=== PATIENT | female | born 1955 | race Caucasian/White ===

== ENCOUNTER 2016-09-23 08:22 | Emergency (ER) | payer OTHER ==
[2016-09-23] MEDS ORDERED: IPRATROPIUM/ALBUTEROL 0.5-2.5 MG/3 ML AMPUL NEB ONE (08:46)
[2016-09-23 09:42] LABS: ABSOLUTE BASOPHILS # (AUTO) 0.1 10^3/uL (0.0-0.2); ABSOLUTE EOSINOPHILS # (AUTO) 0.1 10^3/uL (0.0-0.6); ABSOLUTE LYMPHOCYTES (AUTO) 1.7 10^3/uL (0.5-4.7); ABSOLUTE MONOCYTES (AUTO) 0.8 10^3/uL (0.1-1.4); ABSOLUTE NEUT (AUTO) 6.9 10^3/uL (1.7-8.2); BASOPHILS % (AUTO) 0.8 % (0-2); EOSINOPHILS % (AUTO) 0.9 % (0-6); HEMATOCRIT 37.9 % (36.0-47.0); HEMOGLOBIN 12.8 g/dL (12.0-15.5); HGB HCT DIFFERENCE 0.5; LYMPHOCYTES % (AUTO) 17.7 % (13-45); MEAN CORPUSCULAR HEMOGLOBIN 29.5 pg (27.0-33.4); MEAN CORPUSCULAR HGB CONC 33.8 g/dL (32.0-36.0); MEAN CORPUSCULAR VOLUME 87 fl (80-97); MONOCYTES % (AUTO) 8.2 % (3-13); RED BLOOD COUNT 4.34 10^6/uL (3.72-5.28); RED CELL DISTRIBUTION WIDTH 13.8 % (11.5-14.0); SEGMENTED NEUTROPHILS % (AUTO) 72.4 % (42-78); WHITE BLOOD COUNT 9.5 10^3/uL (4.0-10.5)
[2016-09-23 09:54] LABS: APPEARANCE,URINE CLOUDY; BILIRUBIN,URINE NEGATIVE (NEGATIVE); GLUCOSE, URINE NEGATIVE (NEGATIVE); KETONES,URINE NEGATIVE (NEGATIVE); LEUKOCYTE ESTERASE,URINE LARGE (NEGATIVE); NITRITE,URINE NEGATIVE (NEGATIVE); PROTEIN,URINE NEGATIVE (NEGATIVE); URINE SPECIFIC GRAVITY 1.019; UROBILINOGEN,URINE NEGATIVE mg/dL (<2.0)
[2016-09-23 10:02] LABS: ALANINE AMINOTRANSFERASE 71 U/L (9-52); ALBUMIN 3.9 g/dL (3.5-5.0); ALKALINE PHOSPHATASE 146 U/L (38-126); ANION GAP 15 (5-19); ASPARTATE AMINO TRANSFERASE 57 U/L (14-36); BILIRUBIN,TOTAL 0.5 mg/dL (0.2-1.3); BLOOD UREA NITROGEN 18 mg/dL (7-20); CALCIUM 9.5 mg/dL (8.4-10.2); CARBON DIOXIDE 25 mmol/L (22-30); CHLORIDE 103 mmol/L (98-107); CREATININE RESULT 0.96 mg/dL (0.52-1.25); GLUCOSE 106 mg/dL (75-110); SODIUM 142.6 mmol/L (137-145); TOTAL PROTEIN 8.2 g/dL (6.3-8.2)
--- NOTE | 2016-09-23 10:09 | ER Document Report ---
[id number] SHORTNESS OF BREATH,FEVER Mode of Arrival: Ambulatory Information source: Patient Notes: 61-year-old female presents with complaints of sore throat nasal discharge and a nonproductive cough of one-week duration. Patient admits to fevers denies any chest pain shortness breath difficult to breathing TRAVEL OUTSIDE OF THE [place] IN LAST 30 DAYS: No - HPI Onset: Last week Onset/Duration: Persistent Quality of pain: Achy Severity: Mild Pain Level: 1 Associated symptoms: Nonproductive cough, Sore throat Exacerbated by: Denies Relieved by: Denies Similar symptoms previously: No Recently seen / treated by doctor: No - Related Data Allergies/Adverse Reactions: hydromorphone HCl [From Dilaudid] Adverse Reaction (Verified 09/23/16 08:26) vomitting Past Medical History - Social History Smoking Status: Never Smoker Cigarette use (# per day): No Chew tobacco use (# tins/day): No Smoking Education Provided: No Frequency of alcohol use: None Drug Abuse: None Family History: Reviewed & Not Pertinent Patient has suicidal ideation: No Patient has homicidal ideation: No - Past Medical History Cardiac Medical History: Reports: Hx Hypertension Pulmonary Medical History: Reports: Hx Bronchitis Denies: Hx Tuberculosis Neurological Medical History: Reports: Hx Seizures Renal/ Medical History: Reports: Hx Ovarian Cysts GI Medical History: Reports: Hx Gastroesophageal Reflux Disease, Hx Hiatal Hernia Musculoskeltal Medical History: Reports Hx Arthritis Traumatic Medical History: Reports: Hx Fractures - Collar bone as child Past Surgical History: Reports: Hx Cholecystectomy, Hx Hysterectomy. Denies: Hx Pacemaker - Immunizations Immunizations up to date: No Hx Diphtheria, Pertussis, Tetanus Vaccination: No Review of Systems - Review of Systems Notes: REVIEW OF SYSTEMS: CONSTITUTIONAL : Denies fever, chills, or sweats. Denies recent illness. EENT: Admits to sore throat CARDIOVASCULAR: Denies chest pain. Denies palpitations or racing or irregular heart beat. Denies ankle edema. RESPIRATORY: Denies cough, cold, or chest congestion. Denies shortness of breath, difficulty breathing, or wheezing. GASTROINTESTINAL: Denies abdominal pain or distention. Denies nausea, vomiting , or diarrhea. Denies blood in vomitus, stools, or per rectum. Denies black, tarry stools. Denies constipation. GENITOURINARY: Denies difficulty urinating, painful urination, burning, frequency, blood in urine, or discharge. FEMALE GENITOURINARY: Denies vaginal bleeding, heavy or abnormal periods, irregular periods. Denies vaginal discharge or odor. MUSCULOSKELETAL: Denies back or neck pain or stiffness. Denies joint pain or swelling. SKIN: Denies rash, lesions or sores. HEMATOLOGIC : Denies easy bruising or bleeding. LYMPHATIC: Denies swollen, enlarged glands. NEUROLOGICAL: Denies confusion or altered mental status. Denies passing out or loss of consciousness. Denies dizziness or lightheadedness. Denies headache. Denies weakness or paralysis or loss of use of either side. Denies problems with gait or speech. Denies sensory loss, numbness, or tingling. Denies seizures. PSYCHIATRIC: Denies anxiety or stress. Denies depression, suicidal ideation, or homicidal ideation. ALL OTHER SYSTEMS REVIEWED AND NEGATIVE. Dictation was performed using [employer] voice recognition software PHYSICAL EXAMINATION: GENERAL: Well-appearing, well-nourished and in no acute distress. HEAD: Atraumatic, normocephalic. EYES: Pupils equal round and reactive to light, extraocular movements intact, conjunctiva are normal. ENT: Congestion noted NECK: Normal range of motion, supple without lymphadenopathy LUNGS: Breath sounds clear to auscultation bilaterally and equal. No wheezes rales or rhonchi. HEART: Regular rate and rhythm without murmurs ABDOMEN: Soft, nontender, nondistended abdomen. No guarding, no rebound. No masses appreciated. Female : deferred Musculoskeletal: Normal range of motion, no pitting or edema. No cyanosis. NEUROLOGICAL: Cranial nerves grossly intact. Normal speech, normal gait. Normal sensory, motor exams PSYCH: Normal mood, normal affect. SKIN: Warm, Dry, normal turgor, no rashes or lesions noted. Physical Exam - Vital signs Vitals: Temp Pulse Resp BP Pulse Ox 97.8 F 95 20 141/79 H 95 09/23/16 08:27 09/23/16 08:27 09/23/16 08:27 09/23/16 08:27 09/23/16 08:27 Course - Re-evaluation Re-evalutation: 09/23/16 16:20 There is no respiratory distress no wheezing, patient's upper airway sounds are causing her to believe she is wheezing but in fact she is in no respiratory distress. Chest x-ray was negative, patient will be treated for sinusitis and is otherwise stable After performing a Medical Screening Examination, I estimate there is LOW risk for ACUTE CORONARY SYNDROME, RESPIRATORY FAILURE, SEPSIS OR MENINGITIS, thus I consider the discharge disposition reasonable. The patient and I have discussed the diagnosis and risks, and we agree with discharging home with close follow- up. We also discussed returning to the Emergency Department immediately if new or worsening symptoms occur. We have discussed the symptoms which are most concerning (e.g., changing or worsening pain, trouble swallowing or breathing, neck stiffness, fever) that necessitate immediate return. - Vital Signs Vital signs: Temp Pulse Resp BP Pulse Ox 97.8 F 95 20 141/79 H 95 09/23/16 08:27 09/23/16 08:27 09/23/16 08:27 09/23/16 08:27 09/23/16 08:27 - Laboratory Result Diagrams: 09/23/16 09:14 09/23/16 09:14 Laboratory results interpreted by me: 09/23/16 09/23/16 09:14 09:14 Est GFR (Non-Af Amer) 59 L AST 57 H ALT 71 H Alkaline Phosphatase 146 H Ur Leukocyte Esterase LARGE H - Diagnostic Test Radiology reviewed: Image reviewed, Reports reviewed - Report given to patient Discharge - Discharge Clinical Impression: Cough Sinusitis Qualifiers: Sinusitis location: frontal Chronicity: acute Recurrence: non-recurrent Qualified Code(s): J01.10 - Acute frontal sinusitis, unspecified Condition: Stable Disposition: HOME, SELF-CARE Instructions: Sinusitis ([facility]) Additional Instructions: Follow up with your physician tomorrow for further care or return to the ED IMMEDIATELY if symptoms worsen or new concerns occur Prescriptions: Azithromycin 250 mg PO ASDIR PRN #6 tablet PRN Reason:
--- NOTE | 2016-09-23 16:03 | EKG REPORT ---
SEVERITY:- BORDERLINE ECG - SINUS RHYTHM BORDERLINE T WAVE ABNORMALITIES : Confirmed by: Simón Montoya 23-Sep-2016 16:02:49
[2016-09-23 19:37] VITALS: BP 131/80
== END 2016-09-23 10:30 | disposition home or self-care (01) ==
LOC: ER 08:22
DX: J01.10 Acute frontal sinusitis, unspecified (principal); R05 Cough; R06.02 Shortness of breath; R09.81 Nasal congestion; R50.9 Fever, unspecified; I10 Essential (primary) hypertension
CPT/HCPCS: 93005; 94640; 99284; 36415; 85025; 80053; 81001; 71020; 93010; J7620

== ENCOUNTER → 2016-11-03 | Outpatient (CLI) | payer OTHER ==
[2016-11-04 07:44] LABS: HEPATITIS A AB TOTAL Positive (Negative); HEPATITIS C VIRUS AB <0.1 s/co ratio (0.0-0.9)
== END ==
LOC: CCC 11:01
DX: R94.5 Abnormal results of liver function studies (principal)
CPT/HCPCS: 36415; 80156; 82977; 86317; 86708; 86709; 86803; 86804; 87340

== ENCOUNTER → 2016-12-02 | Outpatient (CLI) | payer OTHER ==
[2016-12-02 12:52] LABS: ABSOLUTE BASOPHILS # (AUTO) 0.1 10^3/uL (0.0-0.2); ABSOLUTE LYMPHOCYTES (AUTO) 1.8 10^3/uL (0.5-4.7); ABSOLUTE MONOCYTES (AUTO) 0.7 10^3/uL (0.1-1.4); ABSOLUTE NEUT (AUTO) 5.7 10^3/uL (1.7-8.2); BASOPHILS % (AUTO) 0.8 % (0-2); EOSINOPHILS % (AUTO) 0.6 % (0-6); HEMATOCRIT 39.8 % (36.0-47.0); HEMOGLOBIN 13.3 g/dL (12.0-15.5); HGB HCT DIFFERENCE 0.1; LYMPHOCYTES % (AUTO) 21.6 % (13-45); MEAN CORPUSCULAR HEMOGLOBIN 28.9 pg (27.0-33.4); MEAN CORPUSCULAR HGB CONC 33.4 g/dL (32.0-36.0); MEAN CORPUSCULAR VOLUME 86 fl (80-97); MONOCYTES % (AUTO) 7.9 % (3-13); RED BLOOD COUNT 4.62 10^6/uL (3.72-5.28); SEGMENTED NEUTROPHILS % (AUTO) 69.1 % (42-78); WHITE BLOOD COUNT 8.2 10^3/uL (4.0-10.5)
[2016-12-02 13:07] LABS: ALANINE AMINOTRANSFERASE 31 U/L (9-52); ALBUMIN 4.6 g/dL (3.5-5.0); ALKALINE PHOSPHATASE 156 U/L (38-126); ANION GAP 13 (5-19); ASPARTATE AMINO TRANSFERASE 20 U/L (14-36); BILIRUBIN,TOTAL 0.6 mg/dL (0.2-1.3); BLOOD UREA NITROGEN 20 mg/dL (7-20); CARBON DIOXIDE 25 mmol/L (22-30); CHLORIDE 104 mmol/L (98-107); CREATININE RESULT 1.04 mg/dL (0.52-1.25); GLUCOSE 88 mg/dL (75-110); POTASSIUM 4.6 mmol/L (3.6-5.0); SODIUM 141.6 mmol/L (137-145); TOTAL PROTEIN 8.7 g/dL (6.3-8.2)
[2016-12-02 13:28] LABS: ERYTHROCYTE SEDIMENTATION RATE 41 mm/hr (0-30)
== END ==
LOC: OD 11:46
DX: G40.909 Epilepsy, unspecified, not intractable, without status epilepticus (principal); I10 Essential (primary) hypertension; R79.89 Other specified abnormal findings of blood chemistry
CPT/HCPCS: 36415; 80053; 85025; 85652

== ENCOUNTER → 2016-12-04 | Outpatient (CLI) | payer OTHER | LOC: RAD 09:53 | DX: R51 Headache (principal); R56.9 Unspecified convulsions | CPT/HCPCS: 70470 ==

== ENCOUNTER 2016-12-21 09:54 | Observation (INO) | payer OTHER ==
[2016-12-21] MEDS ORDERED: PREDNISONE 20 MG TABLET PO ONE (10:48)
[2016-12-21] MEDS ORDERED: IPRATROPIUM/ALBUTEROL 0.5-2.5 MG/3 ML AMPUL NEB ONE ×3 (10:48→14:36)
--- NOTE | 2016-12-21 10:49 | ER Document Report ---
ED Medical Screen (RME) - General Chief Complaint: Breathing Difficulty Stated Complaint: COUGH Mode of Arrival: Ambulatory Information source: Patient TRAVEL OUTSIDE OF THE [place] IN LAST 30 DAYS: No - HPI Onset: Last week Onset/Duration: Gradual Quality of pain: Other - soreness Severity: Moderate Associated Symptoms: Chills, Cough (productive), Sweating Exacerbated by: Other - @night Relieved by: Remaining still Similar symptoms previously: No Recently seen / treated by doctor: No - Related Data Smoking: Non-smoker Frequency of alcohol use: None Drug Abuse: None Allergies/Adverse Reactions: No Known Allergies Allergy (Verified 12/21/16 10:16) Past Medical History - General Information source: Patient - Social History Cigarette use (# per day): No Frequency of alcohol use: None Drug Abuse: None - Past Medical History Cardiac Medical History: Reports: Hx Hypertension Pulmonary Medical History: Reports: Hx Bronchitis Denies: Hx Tuberculosis Neurological Medical History: Reports: Hx Seizures Renal/ Medical History: Reports: Hx Ovarian Cysts. Denies: Hx Peritoneal Dialysis GI Medical History: Reports: Hx Gastroesophageal Reflux Disease, Hx Hiatal Hernia Musculoskeltal Medical History: Reports Hx Arthritis Traumatic Medical History: Reports: Hx Fractures - Collar bone as child Past Surgical History: Reports: Hx Cholecystectomy, Hx Hysterectomy. Denies: Hx Pacemaker - Immunizations Immunizations up to date: No Hx Diphtheria, Pertussis, Tetanus Vaccination: No Physical Exam - Vital signs Vitals: Temp Pulse Resp BP Pulse Ox 98.2 F 86 36 H 109/79 99 12/21/16 10:13 12/21/16 10:12/21/16 10:12/21/16 10:12/21/16 10:13 Interpretation: Tachypneic. No: Tachycardic, Hypoxic, Febrile - General In distress: Mild - resp - Respiratory Respiratory status: Respiratory distress - MILD, Tachypnea Breath sounds: Wheezing Course - Vital Signs Vital signs: Temp Pulse Resp BP Pulse Ox 98.2 F 86 36 H 109/79 99 12/21/16 10:13 12/21/16 10:13 12/21/16 10:13 12/21/16 10:13 12/21/16 10:13
[2016-12-21 11:26] LABS: ABSOLUTE BASOPHILS # (AUTO) 0.1 10^3/uL (0.0-0.2); ABSOLUTE EOSINOPHILS # (AUTO) 0.1 10^3/uL (0.0-0.6); ABSOLUTE LYMPHOCYTES (AUTO) 2.6 10^3/uL (0.5-4.7); ABSOLUTE MONOCYTES (AUTO) 0.8 10^3/uL (0.1-1.4); BASOPHILS % (AUTO) 0.6 % (0-2); EOSINOPHILS % (AUTO) 0.9 % (0-6); HEMATOCRIT 37.4 % (36.0-47.0); HEMOGLOBIN 12.6 g/dL (12.0-15.5); HGB HCT DIFFERENCE 0.4; LYMPHOCYTES % (AUTO) 22.4 % (13-45); MEAN CORPUSCULAR HEMOGLOBIN 28.8 pg (27.0-33.4); MEAN CORPUSCULAR HGB CONC 33.6 g/dL (32.0-36.0); MEAN CORPUSCULAR VOLUME 86 fl (80-97); MONOCYTES % (AUTO) 6.8 % (3-13); RED BLOOD COUNT 4.38 10^6/uL (3.72-5.28); RED CELL DISTRIBUTION WIDTH 13.9 % (11.5-14.0); SEGMENTED NEUTROPHILS % (AUTO) 69.3 % (42-78); WHITE BLOOD COUNT 11.6 10^3/uL (4.0-10.5)
[2016-12-21 11:32] LABS: APPEARANCE,URINE CLEAR; BILIRUBIN,URINE NEGATIVE (NEGATIVE); GLUCOSE, URINE NEGATIVE (NEGATIVE); KETONES,URINE NEGATIVE (NEGATIVE); LEUKOCYTE ESTERASE,URINE NEGATIVE (NEGATIVE); NITRITE,URINE NEGATIVE (NEGATIVE); PROTEIN,URINE NEGATIVE (NEGATIVE); URINE SPECIFIC GRAVITY 1.028; UROBILINOGEN,URINE NEGATIVE mg/dL (<2.0)
[2016-12-21 11:45] LABS: ALANINE AMINOTRANSFERASE 28 U/L (9-52); ALBUMIN 4.2 g/dL (3.5-5.0); ALKALINE PHOSPHATASE 116 U/L (38-126); ANION GAP 13 (5-19); ASPARTATE AMINO TRANSFERASE 21 U/L (14-36); BILIRUBIN,DIRECT 0.2 mg/dL (0.0-0.4); BILIRUBIN,TOTAL 0.5 mg/dL (0.2-1.3); BLOOD UREA NITROGEN 26 mg/dL (7-20); CALCIUM 9.8 mg/dL (8.4-10.2); CARBON DIOXIDE 25 mmol/L (22-30); CHLORIDE 105 mmol/L (98-107); CREATININE RESULT 0.83 mg/dL (0.52-1.25); GLUCOSE 94 mg/dL (75-110); POTASSIUM 3.7 mmol/L (3.6-5.0); SODIUM 143.2 mmol/L (137-145); TOTAL PROTEIN 7.5 g/dL (6.3-8.2)
--- NOTE | 2016-12-21 12:53 | EKG REPORT ---
SEVERITY:- NORMAL ECG - SINUS RHYTHM : Confirmed by: Milena Trevino MD 21-Dec-2016 12:52:21
[2016-12-21] MEDS ORDERED: KETOROLAC TROMETHAMINE 60 MG/2 ML SDV IM ONE (13:54)
--- NOTE | 2016-12-21 14:03 | ER Document Report ---
ED Respiratory Problem - General Mode of Arrival: Ambulatory Information source: Patient TRAVEL OUTSIDE OF THE [place] IN LAST 30 DAYS: No - HPI Patient complains to provider of: Cough, Hurts to breath, Short of breath. No: Asthma, Chest pain, CHF, COPD Quality of pain: No pain Severity: Moderate Context: denies: DVT, Factor V Leiden, Hx asthma, Hx CHF, Hx COPD, Malignancy, , Recent cardiac event, Recent foreign travel, Recent long distance trvl , Recent immobilization, Recent surgery, Smoker Associated symptoms: Congestion, Cough. denies: Ankle/leg swelling, Chills, Fever, Runny nose, Short of breath, Toothache, Wheezing <PAVEL COBURN - Last Filed: 12/21/16 16:24> <DILEEP PALOMARES - Last Filed: 12/22/16 13:02> - General Chief Complaint: Breathing Difficulty Stated Complaint: COUGH - HPI Notes: Patient arrives with complaints of cough and congestion for the last several days. Patient states she's been wheezing. Actually she been getting worse over the last few days. She denies any chest pain. States occasionally feels she feels slightly short of breath. She has pain in her abdominal muscles with coughing only. She denies any recent trips, recent surgeries, leg pain, leg swelling, history of DVT or PE. No fever. No rash. No injury. She states she is feeling better after breathing treatment helped the ER. No other complaints at this time. (PAVEL COBURN) - Related Data Allergies/Adverse Reactions: No Known Allergies Allergy (Verified 12/21/16 10:16) Past Medical History - General Information source: Patient - Social History Smoking Status: Unknown if Ever Smoked Cigarette use (# per day): No Frequency of alcohol use: None Drug Abuse: None Family History: Reviewed & Not Pertinent Patient has suicidal ideation: No Patient has homicidal ideation: No - Past Medical History Cardiac Medical History: Reports: Hx Hypertension Pulmonary Medical History: Reports: Hx Bronchitis Denies: Hx Tuberculosis Neurological Medical History: Reports: Hx Seizures Renal/ Medical History: Reports: Hx Ovarian Cysts. Denies: Hx Peritoneal Dialysis GI Medical History: Reports: Hx Gastroesophageal Reflux Disease, Hx Hiatal Hernia Musculoskeltal Medical History: Reports Hx Arthritis Traumatic Medical History: Reports: Hx Fractures - Collar bone as child Past Surgical History: Reports: Hx Cholecystectomy, Hx Hysterectomy. Denies: Hx Pacemaker - Immunizations Immunizations up to date: No Hx Diphtheria, Pertussis, Tetanus Vaccination: No <PAVEL COBURN - Last Filed: 12/21/16 16:24> Review of Systems - Review of Systems -: Yes All other systems reviewed and negative <PAVEL COBURN - Last Filed: 12/21/16 16:24> Physical Exam - General General appearance: Appears well, Alert In distress: None - HEENT Head: Normocephalic, Atraumatic Eyes: Normal Conjunctiva: Normal Ears: Normal Nasal: Clear rhinorrhea Mouth/Lips: Normal Mucous membranes: Normal Pharynx: Normal Neck: Normal - Respiratory Respiratory status: No respiratory distress Breath sounds: Wheezing - Throughout. No: Rhonchi, Stridor - Cardiovascular Rhythm: Regular Heart sounds: Normal auscultation Murmur: No - Abdominal Inspection: Normal Distension: No distension Bowel sounds: Normal Tenderness: Nontender Organomegaly: No organomegaly - Back Back: Normal, Nontender - Extremities General upper extremity: Normal inspection, Nontender, Normal color, Normal ROM , Normal temperature General lower extremity: Normal inspection, Nontender, Normal color, Normal ROM , Normal temperature, Normal weight bearing. No: Emerita's sign - Neurological Neuro grossly intact: Yes Speech: Normal - Psychological Associated symptoms: Normal affect, Normal mood - Skin Skin Temperature: Warm Skin Moisture: Dry Skin Color: Normal <PAVEL COBURN - Last Filed: 12/21/16 16:24> <DILEEP PALOMARES - Last Filed: 12/22/16 13:02> - Vital signs Vitals: Temp Pulse Resp BP Pulse Ox 98.2 F 86 36 H 109/79 99 12/21/16 10:13 12/21/16 10:13 12/21/16 10:13 12/21/16 10:13 12/21/16 10:13 - Extremities Notes: No pedal edema, no calf swelling or tenderness. (PAVEL COBURN) Course - Laboratory Result Diagrams: 12/21/16 10:55 12/21/16 10:55 - Diagnostic Test Radiology reviewed: Image reviewed, Reports reviewed - Scarring with no acute abnormality on chest x-ray - EKG Interpretation by [place] EKG shows normal: Sinus rhythm, Intervals, QRS Complexes, ST-T Waves Rate: Normal When compared to previous EKG there are: No significant change <PAVEL COBURN - Last Filed: 12/21/16 16:24> - Laboratory Result Diagrams: 12/22/16 06:27 12/21/16 10:55 <DILEEP PALOMARES - Last Filed: 12/22/16 13:02> - Re-evaluation Re-evalutation: 12/21/16 14:36 Patient reevaluated at this time after breathing treatment. The patient states she had a coughing spell and she now feels more short of breath. The patient noted to have expiratory wheezing throughout. She has some mild respiratory distress with tachypnea. An ABG has been ordered to further evaluate her respiratory status. Her vitals are all stable at this time. I will order another breathing treatment at this time as well. The patient started and given steroids. 12/21/16 16:25 Patient continues to have complaints of shortness of breath with some mild respiratory distress. She is mildly hypoxic at 93%. ABG shows PO2 of 66. Discussed the case with the hospitalist who agree with admission. Patient will be admitted to the hospital for further evaluation and management. (PAVEL COBURN) - Vital Signs Vital signs: Temp Pulse Resp BP Pulse Ox 98.1 F 98 20 136/83 H 95 12/22/16 11:17 12/22/16 11:17 12/22/16 11:17 12/22/16 11:17 12/22/16 11:17 - Laboratory Laboratory results interpreted by me: 12/21/16 12/21/16 12/21/16 10:55 10:55 15:50 WBC 11.6 H Carbonic Acid 0.83 L ABG pH 7.51 H ABG pCO2 27.6 L ABG pO2 66.9 L BUN 26 H Discharge - Discharge Admitting Provider: Hospitalist - dr Humphrey Unit Admitted: IMCU <PAVEL COBURN - Last Filed: 12/21/16 16:24> <DILEEP PALOMARES - Last Filed: 12/22/16 13:02> - Discharge Clinical Impression: Hypoxemia, Respiratory distress Condition: Serious Disposition: ADMITTED INPATIENT Cosign for [facility] Exam - Cosign -: I personally evaluated and examined the patient in conjunction with the MLP and agree with the assessment, treatment plan and disposition. Cosign for ML: Caryl <DILEEP PALOMARES - Last Filed: 12/22/16 13:02>
[2016-12-21 16:08] LABS: ARTERIAL BLOOD BASE EXCESS -0.6 mmol/L; ARTERIAL BLOOD O2 SATURATION 95.1 % (94-98)
[2016-12-21] MEDS ORDERED: NORMAL SALINE 1000 ML 1,000 ML IV PRN (16:48)
[2016-12-21] MEDS ORDERED: MAGNESIUM SULFATE/D5W 100 ML IV ONE (17:30)
[2016-12-21] MEDS ORDERED: ENOXAPARIN SODIUM INJ 40 MG/0.4 ML DISP.SYRIN SUBCUT ONE (18:00)
--- NOTE | 2016-12-21 18:41 | PDOC H&P ---
History of Present Illness Admission Date/PCP: 12/21/16 17:05 [facility] Patient complains of: Shortness of breath History of Present Illness: CAMILLA THOMAS is a 61 year old female complaints of cough and congestion for the last several days. Patient states she's been wheezing. Actually she been getting worse over the last few days. She denies any chest pain. States occasionally feels she feels slightly short of breath. She has pain in her abdominal muscles with coughing only. She denies any recent trips, recent surgeries, leg pain, leg swelling, history of DVT or PE. No fever. No rash. No injury. She states she is feeling better after breathing treatment helped the ER. No other complaints at this time. Upon evaluation in the ED patient was found in mild respiratory distress with diffuse wheezing bilaterally and a spastic cough The chest x-ray did not show any infiltrate Patient was diagnosed of acute asthmatic bronchitis and subsequently admitted to [facility] for observation Past Medical History Cardiac Medical History: Reports: Hypertension Pulmonary Medical History: Reports: Bronchitis Denies: Tuberculosis Neurological Medical History: Reports: Seizures GI Medical History: Reports: Gastroesophageal Reflux Disease, Hiatal Hernia Musculoskeltal Medical History: Reports: Arthritis Past Surgical History Past Surgical History: Reports: Cholecystectomy, Hysterectomy Denies: Pacemaker Social History Information Source: Patient Lives with: Family Smoking Status: Never Smoker Frequency of Alcohol Use: None Hx Recreational Drug Use: No Hx Prescription Drug Abuse: No - Advance Directive Resuscitation Status: Full Code Surrogate healthcare decision maker:: Victor M is Family History Family History: Reviewed & Not Pertinent, DM, Hypertension [place] [id number]). He another Norvasc 10 of Norvasc 5 on the chart Parental Family History Reviewed: Yes Children Family History Reviewed: Yes Sibling(s) Family History Reviewed.: Yes - and Medication/Allergy Home Medications: Amlodipine Besylate [Norvasc 10 mg Tablet] 10 mg PO DAILY 12/21/16 Carbamazepine [Tegretol 200 Mg Tablet] 200 mg PO DAILY 12/21/16 Carbamazepine [Tegretol 200 Mg Tablet] 300 mg PO QHS 12/21/16 Esomeprazole Mag Trihydrate [Nexium] 80 mg PO BIDACBS 12/21/16 Lisinopril/Hydrochlorothiazide [Lisinopril-Hctz 20-12.5 mg Tab] 1 tab PO DAILY 12/21/16 Allergies/Adverse Reactions: No Known Allergies Allergy (Verified 12/21/16 10:16) Review of Systems Constitutional: ABSENT: chills, fever(s), headache(s), weight gain, weight loss Eyes: ABSENT: visual disturbances Ears: ABSENT: hearing changes Cardiovascular: ABSENT: chest pain, dyspnea on exertion, edema, orthropnea, palpitations Respiratory: PRESENT: cough, dyspnea, sputum - Greenish color. ABSENT: hemoptysis Gastrointestinal: ABSENT: abdominal pain, constipation, diarrhea, hematemesis, hematochezia, nausea, vomiting Genitourinary: ABSENT: dysuria, hematuria Musculoskeletal: ABSENT: joint swelling Integumentary: ABSENT: rash, wounds Neurological: ABSENT: abnormal gait, abnormal speech, confusion, dizziness, focal weakness, syncope Psychiatric: ABSENT: anxiety, depression, homidical ideation, suicidal ideation Endocrine: ABSENT: cold intolerance, heat intolerance, polydipsia, polyuria Hematologic/Lymphatic: ABSENT: easy bleeding, easy bruising Physical Exam Vital Signs: Temp Pulse Resp BP Pulse Ox 98.2 F 86 21 H 109/79 97 12/21/16 10:13 12/21/16 10:13 12/21/16 18:00 12/21/16 10:13 12/21/16 18:00 General appearance: PRESENT: no acute distress, well-developed, well-nourished Head exam: PRESENT: atraumatic, normocephalic Eye exam: PRESENT: conjunctiva pink, EOMI, PERRLA. ABSENT: scleral icterus Ear exam: PRESENT: normal external ear exam Mouth exam: PRESENT: moist, tongue midline Neck exam: ABSENT: carotid bruit, JVD, lymphadenopathy, thyromegaly Respiratory exam: PRESENT: tachypnea, wheezes - Bilaterally. ABSENT: rhonchi Cardiovascular exam: PRESENT: RRR. ABSENT: diastolic murmur, rubs, systolic murmur Pulses: PRESENT: normal dorsalis pedis pul Vascular exam: PRESENT: normal capillary refill GI/Abdominal exam: PRESENT: normal bowel sounds, soft. ABSENT: distended, guarding, mass, organolmegaly, rebound, tenderness Rectal exam: PRESENT: deferred Extremities exam: PRESENT: full ROM. ABSENT: calf tenderness, clubbing, pedal edema Musculoskeletal exam: PRESENT: tenderness - On palpation of the chest wall Neurological exam: PRESENT: alert, awake, oriented to person, oriented to place , oriented to time, oriented to situation, CN II-XII grossly intact. ABSENT: motor sensory deficit Psychiatric exam: PRESENT: appropriate affect, normal mood. ABSENT: homicidal ideation, suicidal ideation Skin exam: PRESENT: dry, intact, warm. ABSENT: cyanosis, rash Results Laboratory Results: 12/21/16 12/21/16 12/21/16 10:55 10:55 15:50 WBC 11.6 H Carbonic Acid 0.83 L ABG pH 7.51 H ABG pCO2 27.6 L ABG pO2 66.9 L BUN 26 H 12/21/16 10:55 12/21/16 10:55 MCV 86 fl (80-97) 12/21/16 10:55 MCH 28.8 pg (27.0-33.4) 12/21/16 10:55 MCHC 33.6 g/dL (32.0-36.0) 12/21/16 10:55 RDW 13.9 % (11.5-14.0) 12/21/16 10:55 Seg Neutrophils % 69.3 % (42-78) 12/21/16 10:55 Lymphocytes % 22.4 % (13-45) 12/21/16 10:55 Monocytes % 6.8 % (3-13) 12/21/16 10:55 Eosinophils % 0.9 % (0-6) 12/21/16 10:55 Basophils % 0.6 % (0-2) 12/21/16 10:55 Absolute Neutrophils 8.0 10^3/uL (1.7-8.2) 12/21/16 10:55 Absolute Lymphocytes 2.6 10^3/uL (0.5-4.7) 12/21/16 10:55 Absolute Monocytes 0.8 10^3/uL (0.1-1.4) 12/21/16 10:55 Absolute Eosinophils 0.1 10^3/uL (0.0-0.6) 12/21/16 10:55 Absolute Basophils 0.1 10^3/uL (0.0-0.2) 12/21/16 10:55 Carbonic Acid 0.83 mmol/L (1.05-1.35) L 12/21/16 15:50 HCO3/H2CO3 Ratio 25:1 12/21/16 15:50 ABG pH 7.51 (7.35-7.45) H 12/21/16 15:50 ABG pCO2 27.6 mmHg (35-45) L 12/21/16 15:50 ABG pO2 66.9 mmHg (80-100) L 12/21/16 15:50 ABG HCO3 21.3 mmol/L (20-26) 12/21/16 15:50 ABG O2 Saturation 95.1 % (94-98) 12/21/16 15:50 ABG Base Excess -0.6 mmol/L 12/21/16 15:50 FiO2 ROOM AIR 12/21/16 15:50 Chloride 105 mmol/L (98-107) 12/21/16 10:55 Carbon Dioxide 25 mmol/L (22-30) 12/21/16 10:55 Anion Gap 13 (5-19) 12/21/16 10:55 Est GFR ( Amer) > 60 (>60) 12/21/16 10:55 Est GFR (Non-Af Amer) > 60 (>60) 12/21/16 10:55 Glucose 94 mg/dL (75-110) 12/21/16 10:55 Calcium 9.8 mg/dL (8.4-10.2) 12/21/16 10:55 Total Bilirubin 0.5 mg/dL (0.2-1.3) 12/21/16 10:55 AST 21 U/L (14-36) 12/21/16 10:55 ALT 28 U/L (9-52) 12/21/16 10:55 Alkaline Phosphatase 116 U/L (38-126) 12/21/16 10:55 Total Protein 7.5 g/dL (6.3-8.2) 12/21/16 10:55 Albumin 4.2 g/dL (3.5-5.0) 12/21/16 10:55 Urine Color YELLOW 12/21/16 10:55 Urine Appearance CLEAR 12/21/16 10:55 Urine pH 5.0 (5.0-9.0) 12/21/16 10:55 Ur Specific [place] 1.028 12/21/16 10:55 Urine Protein NEGATIVE mg/dL (NEGATIVE) 12/21/16 10:55 Urine Glucose (UA) NEGATIVE mg/dL (NEGATIVE) 12/21/16 10:55 Urine Ketones NEGATIVE mg/dL (NEGATIVE) 12/21/16 10:55 Urine Blood NEGATIVE (NEGATIVE) 12/21/16 10:55 Urine Nitrite NEGATIVE (NEGATIVE) 12/21/16 10:55 Ur Leukocyte Esterase NEGATIVE (NEGATIVE) 12/21/16 10:55 Urine WBC (Auto) 2 /HPF 12/21/16 10:55 Urine RBC (Auto) 1 /HPF 12/21/16 10:55 EKG Comments: SINUS RHYTHM [id number] CAMILLA THOMAS 21-Dec-2016 11:31:39 : 1955 61 Years Female Race: White Dept: ED Oper: Felicia MARTINEZ HR 82 [place] 164 QRSD 68 QT 352 QTc 411 -- AXIS Impressions: Chest X-Ray 12/21/16 10:45 IMPRESSION: MILD SCARRING. NO ACUTE RADIOGRAPHIC FINDING IN THE CHEST. Assessment & Plan - Diagnosis (1) Acute asthmatic bronchitis Is this a current diagnosis for this admission?: YesPlan: Treat with steroids nebs We will give magnesium IV 1 g as the patient is extremely dyspneic (2) Pneumonia Qualifiers: Pneumonia type: due to unspecified organism Laterality: unspecified laterality Lung location: unspecified part of lung Qualified Code(s) : J18.9 - Pneumonia, unspecified organism Is this a current diagnosis for this admission?: YesPlan: We will treat with Levaquin IV We will screen for influenza (3) Hypoxemia Is this a current diagnosis for this admission?: YesPlan: Secondary to above - Time Time Spent with patient: patient admitted to [facility] for observation Time Spent: 50 to 70 Minutes
[2016-12-21] MEDS: LEVOFLOXACIN 750 MG/D5W RTU 750 MG/150 ML RTUPB IV SCH (18:42)
[2016-12-21] MEDS ORDERED: BENZONATATE 100 MG CAPSULE PO ONE (19:00)
[2016-12-21] MEDS: IPRATROPIUM/ALBUTEROL 0.5-2.5 MG/3 ML AMPUL NEB SCH (19:49)
[2016-12-21] MEDS: BENZONATATE 100 MG CAPSULE PO SCH (21:34)
[2016-12-21] MEDS: FAMOTIDINE 20 MG TABLET PO SCH (21:35)
[2016-12-21] MEDS: METHYLPREDNISOLONE INJ 125 MG/2 ML SDV IV SCH (21:35)
[2016-12-21] MEDS: OXYCODONE HCL IR 5 MG TABLET PO PRN (21:36)
[2016-12-21] MEDS ORDERED: METHYLPREDNISOLONE INJ 40 MG/1 ML SDV IV SCH (22:00)
[2016-12-22] MEDS: METHYLPREDNISOLONE INJ 125 MG/2 ML SDV IV SCH (05:30)
[2016-12-22] MEDS: OXYCODONE HCL IR 5 MG TABLET PO PRN ×3 (05:30→21:48)
[2016-12-22] MEDS: BENZONATATE 100 MG CAPSULE PO SCH (05:30)
[2016-12-22 06:58] LABS: HEMATOCRIT 33.2 % (36.0-47.0); HEMOGLOBIN 11.4 g/dL (12.0-15.5); MEAN CORPUSCULAR HEMOGLOBIN 29.3 pg (27.0-33.4); MEAN CORPUSCULAR HGB CONC 34.2 g/dL (32.0-36.0); MEAN CORPUSCULAR VOLUME 86 fl (80-97); RED BLOOD COUNT 3.88 10^6/uL (3.72-5.28); RED CELL DISTRIBUTION WIDTH 14.1 % (11.5-14.0); WHITE BLOOD COUNT 9.5 10^3/uL (4.0-10.5)
[2016-12-22 07:12] LABS: CHOLESTEROL 170.14 mg/dL (0-200); Direct HDL 57 mg/dL (>40); TRIGLYCERIDES 47 mg/dL (<150)
[2016-12-22 07:22] LABS: DIRECT LDL 86 mg/dL (<100)
[2016-12-22] MEDS: IPRATROPIUM/ALBUTEROL 0.5-2.5 MG/3 ML AMPUL NEB SCH ×3 (07:44→19:36)
[2016-12-22] MEDS: ENOXAPARIN SODIUM INJ 40 MG/0.4 ML DISP.SYRIN SUBCUT SCH (08:30)
--- NOTE | 2016-12-22 10:29 | Physician Advisory Note ---
Physician Advisor ProgressNote .: Pursuant to the plan for [facility], I have reviewed the medical record for this patient. Physician Advisor Statement: Possible documentation opportunities if attending agrees: 1. "Acute exacerbation of ____ type asthma" Dx of type of chronic asthma is based on worst category in which pt has at least 1 of following s/s present at baseline: A. Mild Intermittent: only needs albuterol occasionally. B. Mild Persistent: sx >2x/wk, nocturnal sx up to 4x/mo, FEV1 80+% predicted C. Mod Persistent: sx (or albuterol) daily, nocturnal sx >1x/wk, FEV1 60-80% predicted D. Severe Persistent: activities curtailed, frequent exacerbations, noct sx frequent, FEV1 <60% predicted. 2. "pneumonia of ___ lobe(s), suspect gram-___ type" [treating w/Eli] - Pt did come in with "labored" breathing & tachypnea per ED nursing assessment note. If she had documented RA O2 sat <90% or equivalent, she could qualify for dx of "Ac Hypoxemic Resp Failure". Status: Appropraite to come in for Outpt Obs to start. If on eval today, pt is found to need continued tx & monitoring in inpatient hospital setting, medically reasonable & necessary to protect pt's health, safety, & medical condition, then please document difference from baseline, clinical concerns, & may change to Inpt. Thanks for your help with documentation accuracy/specificity improvement! Dari Pierre MD [facility] Physician Advisor, Fellow of Hospital Medicine
[2016-12-22] MEDS: FAMOTIDINE 20 MG TABLET PO SCH ×2 (10:38→21:47)
[2016-12-22] MEDS ORDERED: (PENDING PHARMACY ID) (Lisinopril/Hydrochlorothiazide [Lisinopril-Hctz 20-12.5 Mg Tab] 1 T PO SCH (11:45)
[2016-12-22] MEDS ORDERED: HYDROCODONE BIT/HOMATROPINE 5-1.5 MG TABLET PO PRN (11:55)
[2016-12-22] MEDS ORDERED: LISINOPRIL 10 MG TABLET PO SCH (12:00)
[2016-12-22] MEDS ORDERED: HYDROCHLOROTHIAZIDE 12.5 MG CAPSULE PO SCH (12:00)
[2016-12-22] MEDS ORDERED: AMLODIPINE BESYLATE 10 MG TABLET PO SCH (12:00)
--- NOTE | 2016-12-22 12:15 | PDOC PROGRESS REPORT ---
Subjective Progress Note for:: 12/22/16 Subjective:: Reason for follow-up visit: Acute bacterial bronchitis, chest wall pain Hospital course: Per H&P "CAMILLA THOMAS is a 61 year old female complaints of cough and congestion for the last several days. Patient states she's been wheezing. Actually she been getting worse over the last few days. She denies any chest pain. States occasionally feels she feels slightly short of breath. She has pain in her abdominal muscles with coughing only. She denies any recent trips, recent surgeries, leg pain, leg swelling, history of DVT or PE. No fever. No rash. No injury. She states she is feeling better after breathing treatment helped the ER. No other complaints at this time. Upon evaluation in the ED patient was found in mild respiratory distress with diffuse wheezing bilaterally and a spastic cough The chest x-ray did not show any infiltrate Patient was diagnosed of acute asthmatic bronchitis and subsequently admitted to [facility] for observation." I inherited her care this morning and found her to remain audibly bronchospastic upon entering the room with mild respiratory distress. She continues to complain of sharp, stabbing chest wall pain nonradiating across the lower ribs worsened with deep breath and cough, alleviated with rest and no associated symptoms of nausea, vomiting, fever, chills, palpitations, orthopnea or PND. Overall she states her condition is improved. ROS: per HPI plus a total of 10 systems reviewed, pertinent positives and negatives noted above, remaining systems negative. Physical Exam Vital Signs: Temp Pulse Resp BP Pulse Ox 98.1 F 98 20 136/83 H 95 12/22/16 11:17 12/22/16 11:17 12/22/16 11:17 12/22/16 11:17 12/22/16 11:17 Intake & Output 12/21/16 12/22/16 12/23/16 06:59 06:59 06:59 Intake Total 1040 Balance 1040 Weight 93 kg EXAM GENERAL: NAD; well developed, well nourished; moderate obese; alert and oriented to person, place, time, situation HEENT: normocephalic, atraumatic; no conjunctival injection, no scleral icterus ; oral mucosa moist; RESPIRATORY: no accessory muscle use, mild increased WOB, poor air entry bilaterally; bilateral wheezes and rhonchi; bibasilar inspiratory crackles CARDIO: no JVD; RRR; no systolic murmur; borderline tachycardia GI: soft; nondistended; normal bowel sounds; no hepato spleno megaly; no rebound, rigidity, guarding VASCULAR: no carotid bruit; no abdominal bruit; no pallor; 2+ radial, DP pulse ; normal capillary refill EXTREMITIES: no calf tender; no palpable cords in calf; no clubbing, cyanosis , pedal edema PSYCH: normal affect, normal mood SKIN: warm; moist; no petechiae; no telengectasias; no jaundice; no rash Results Laboratory Results: 12/22/16 06:27 12/22/16 12/22/16 12/22/16 06:27 06:27 06:27 WBC 9.5 RBC 3.88 Hgb 11.4 L Hct 33.2 L MCV 86 MCH 29.3 MCHC 34.2 RDW 14.1 H Plt Count 186 Triglycerides 47 Cholesterol 170.14 LDL Cholesterol Direct 86 VLDL Cholesterol 9.0 L HDL Cholesterol 57 TSH 0.95 Labs reviewed without worrisome findings Impressions: Chest X-Ray 12/21/16 10:45 IMPRESSION: MILD SCARRING. NO ACUTE RADIOGRAPHIC FINDING IN THE CHEST. Status: Image reviewed by me - Agree with radiology Assessment & Plan - Diagnosis (1) Acute bacterial bronchitis Is this a current diagnosis for this admission?: YesPlan: Slightly improved but not back to baseline. Continue empiric Levaquin, systemic steroids, supplemental O2 and add flutter valve and incentive spirometer. Increase activity with ambulation. Wean O2 as tolerated. The patient reports no prior history of asthma, tobacco use, toxin exposure, or emphysema/COPD. (2) Acute respiratory failure with hypoxia Is this a current diagnosis for this admission?: YesPlan: Slightly improved. Treat as above. (3) Moderate obesity Is this a current diagnosis for this admission?: YesPlan: Stable. Probably complicates respiratory recovery. (4) Seizure disorder Is this a current diagnosis for this admission?: YesPlan: Controlled on current regimen. Check Tegretol level and adjust dose as needed. - Time Time Spent with patient: 35 or more minutes Medications reviewed and adjusted accordingly: Yes Anticipated discharge: Home Within: within 48 hours - Plan Summary Plan Summary: Given the degree of bronchospasm evident on exam and rapid fatiguing with minimal exertion and marked increased work of breathing and in spite of high- dose steroids and other treatments I suspect she will require an additional 1-2 nights and hospital before safely transitioning home.
--- NOTE | 2016-12-22 13:13 | EKG REPORT ---
SEVERITY:- NORMAL ECG - SINUS RHYTHM : Confirmed by: Milena Trevino MD 22-Dec-2016 13:13:01
[2016-12-22] MEDS: METHYLPREDNISOLONE INJ 40 MG/1 ML SDV IV SCH ×2 (13:39→21:49)
[2016-12-22] MEDS: LANSOPRAZOLE 30 MG TAB.RAP.DR PO SCH (15:57)
[2016-12-22] MEDS: LEVOFLOXACIN 750 MG/D5W RTU 750 MG/150 ML RTUPB IV SCH (18:07)
[2016-12-22] MEDS ORDERED: CARBAMAZEPINE 200 MG TABLET PO SCH (22:00)
[2016-12-23] MEDS: LANSOPRAZOLE 30 MG TAB.RAP.DR PO SCH (05:58)
[2016-12-23] MEDS: METHYLPREDNISOLONE INJ 40 MG/1 ML SDV IV SCH (05:59)
[2016-12-23 08:06] VITALS: BP 126/77
[2016-12-23] MEDS: IPRATROPIUM/ALBUTEROL 0.5-2.5 MG/3 ML AMPUL NEB SCH (08:33)
[2016-12-23] MEDS ORDERED: CARBAMAZEPINE 200 MG TABLET PO SCH (10:00)
[2016-12-23] MEDS: FAMOTIDINE 20 MG TABLET PO SCH (10:20)
[2016-12-23] MEDS: ENOXAPARIN SODIUM INJ 40 MG/0.4 ML DISP.SYRIN SUBCUT SCH (10:21)
--- NOTE | 2016-12-23 11:06 | PDOC DISCHARGE SUMMARY ---
General - Admit/Disc Date/PCP Admission Date/Primary Care Provider: 12/21/16 17:05 [facility] Discharge Date: 12/23/16 - Discharge Diagnosis (1) Acute bacterial bronchitis Is this a current diagnosis for this admission?: YesSummary: improved. d/c home with oral steroids, abx and inhaler. return to ED for worsening condition. f/u PCP in one week. (2) Acute respiratory failure with hypoxia Is this a current diagnosis for this admission?: YesSummary: resolved. ambulated without hypoxia or wheezing. stable for d/c home. (3) Moderate obesity Is this a current diagnosis for this admission?: Yes (4) Seizure disorder Is this a current diagnosis for this admission?: YesSummary: Rx for tegretol filled. levels are Tx. - Additional Information Resuscitation Status: Full Code Discharge Diet: Cardiac Discharge Activity: Activity As Tolerated Home Medications: Amlodipine Besylate [Norvasc 10 mg Tablet] 10 mg PO DAILY 12/21/16 Esomeprazole Mag Trihydrate [Nexium] 80 mg PO BIDACBS 12/21/16 Lisinopril/Hydrochlorothiazide [Lisinopril-Hctz 20-12.5 mg Tab] 1 tab PO DAILY 12/21/16 Albuterol Sulfate [Proair HFA] 1 - 2 puff IH Q4 PRN #1 inhaler 12/23/16 Carbamazepine [Tegretol 200 mg Tablet] 200 mg PO DAILY #30 tablet 12/23/16 Carbamazepine [Tegretol 200 mg Tablet] 300 mg PO QHS #30 tablet 12/23/16 Ciprofloxacin HCl [Cipro 500 mg Tablet] 500 mg PO BID #20 tablet 12/23/16 Dexamethasone 4 mg PO BID #10 tablet 12/23/16 Hydrocodone Bit/Homatropine [Hycodan 5-1.5 mg Tablet] 1 tab PO QIDP PRN #20 tablet 12/23/16 History of Present Illness Patient complains of: wheezing History of Present Illness: CAMILLA THOMAS is a 61 year old female complaints of cough and congestion for the last several days. Hospital Course Hospital Course: Patient states she's been wheezing. Actually she been getting worse over the last few days. She denies any chest pain. States occasionally feels she feels slightly short of breath. She has pain in her abdominal muscles with coughing only. She denies any recent trips, recent surgeries, leg pain, leg swelling, history of DVT or PE. No fever. No rash. No injury. She states she is feeling better after breathing treatment helped the ER. No other complaints at this time. Upon evaluation in the ED patient was found in mild respiratory distress with diffuse wheezing bilaterally and a spastic cough The chest x-ray did not show any infiltrate Patient was diagnosed of acute asthmatic bronchitis and subsequently admitted to [facility] for observation." I inherited her care yesterday and found her to remain audibly bronchospastic upon entering the room with mild respiratory distress. She continues to complain of sharp, stabbing chest wall pain nonradiating across the lower ribs worsened with deep breath and cough, alleviated with rest and no associated symptoms of nausea, vomiting, fever, chills, palpitations, orthopnea or PND. Overall she states her condition is improved. today she is back to baseline and stable for d/c home. Physical Exam Vital Signs: Temp Pulse Resp BP Pulse Ox 97.6 F 79 16 126/77 H 94 12/23/16 07:22 12/23/16 08:33 12/23/16 08:33 12/23/16 07:22 12/23/16 08:33 Intake & Output 12/22/16 12/23/16 12/24/16 06:59 06:59 06:59 Intake Total 1040 3137 Balance 1040 3137 Weight 93 kg 91.6 kg EXAM GENERAL: NAD; well developed, well nourished; moderate obese; alert and oriented to person, place, time, situation HEENT: normocephalic, atraumatic; no conjunctival injection, no scleral icterus ; oral mucosa moist; RESPIRATORY: no accessory muscle use, mild increased WOB, better air entry bilaterally; no wheeze, reales or rhonchi this morning even after exertion. CARDIO: no JVD; RRR; no systolic murmur; no tachycardia GI: soft; nondistended; normal bowel sounds; no hepato spleno megaly; no rebound, rigidity, guarding VASCULAR: no pallor; 2+ radial, DP pulse; normal capillary refill EXTREMITIES: no calf tender; no palpable cords in calf; no clubbing, cyanosis , pedal edema PSYCH: normal affect, normal mood SKIN: warm; moist; no petechiae; no telengectasias; no jaundice; no rash Results Laboratory Results: 12/22/16 06:27 Impressions: Chest X-Ray 12/21/16 10:45 IMPRESSION: MILD SCARRING. NO ACUTE RADIOGRAPHIC FINDING IN THE CHEST. Qualifiers PATEINT BEING DISCHARGED WITH ANY OF THE FOLLOWING DIAGNOSIS?: No VTE patient discharged on overlapping Therapy?: No Reason(s) for not prescribing Overlap Therapy:: Not indicated Plan Discharge Plan: ok to d/c home, f/u with PCP in one week; return to the ED for worsening conditionl. Time Spent: Greater than 30 Minutes
== END 2016-12-23 12:43 | disposition home or self-care (01) ==
LOC: ER 09:54 → INTOOBSV 17:05 → EH 17:05 → 3N 19:14
PROVIDERS: ADMIT Emergency Medicine; ATTEND Emergency Medicine
PROC: 3E023GC Introduction of Other Therapeutic Substance into Muscle, Percutaneous Approach (ICD-10-PCS; principal; 2016-12-21)
DX: J45.909 Unspecified asthma, uncomplicated (principal); J18.9 Pneumonia, unspecified organism; J96.01 Acute respiratory failure with hypoxia; E66.01 Morbid (severe) obesity due to excess calories; G40.909 Epilepsy, unspecified, not intractable, without status epilepticus; I10 Essential (primary) hypertension; K21.9 Gastro-esophageal reflux disease without esophagitis
CPT/HCPCS: 93005 ×2; 94640 ×5; 99285; 96372; 36415 ×2; 87040; 87070; 87205; 82803; 84443; 80156; 85025; 85027; 80053; 81001; 83036; 80061; 87804; 71020; 93010 ×2; 36600; G0378 ×4; J1885; J2920 ×2; J2930 ×2; J1650 ×3; J3475; J7512; J3490 ×2; J7030; J1956 ×2; J7620 ×3

== ENCOUNTER → 2017-02-10 | Outpatient (CLI) | payer OTHER ==
--- NOTE | 2017-02-10 14:23 | WOMENS IMAGING REPORT ---
EXAM DESCRIPTION: BILAT DIAGNOSTIC MAMMO W/CAD; U/S BREAST UNILAT LIMITED COMPLETED DATE/TIME: 02/10/2017 9:47 am; 02/10/2017 11:07 am REASON FOR STUDY: N64.4, MASTODYNIA; LT BREAST N64.4 N64.53 RETRACTION OF NIPPLE N64.4 MASTODYNIA COMPARISON: 12/01/2011 and 11/12/2009. TECHNIQUE: Standard craniocaudal and mediolateral oblique views of each breast recorded using [employer] acquisition. Additional images of the left breast include a true lateral view and spot compression lateral and CC views. LIMITATIONS: None. FINDINGS: RIGHT BREAST MASSES: No suspicious masses. CALCIFICATIONS: No new or suspicious calcifications. ARCHITECTURAL DISTORTION: None. DEVELOPING DENSITY: None. ASYMMETRY: None noted. OTHER: No other significant findings. LEFT BREAST MASSES: No suspicious masses. CALCIFICATIONS: No new or suspicious calcifications. ARCHITECTURAL DISTORTION: None. DEVELOPING DENSITY: None. ASYMMETRY: None noted. OTHER: No other significant finding. Read with the assistance of CAD: .[facility] - R2 Cenova Version 1.3 .[facility] Imaging - R2 Cenova Version 1.3 .[facility] Imaging - R2 Cenova Version 2.4 .[facility] Cenova Version 2.4 .[facility] - R2 [employer] Executive Version 9.2 BREAST ULTRASOUND: TECHNIQUE: Static and dynamic grayscale images acquired of the left breast in the specific areas of c linical/mammographic concern. Selected color Doppler images recorded. ELASTOGRAPHY PERFORMED: No. LIMITATIONS: None. FINDINGS: MASS: Immediately behind the nipple there is a questionable circumscribed mass measuring 5 x 8 mm. T his is homogeneous with smooth borders with echogenicity identical to parenchyma. No distal shadowin g. ELASTOGRAPHY CHARACTERISTICS: Not applicable. OTHER: No other significant finding. IMPRESSION: STABLE MAMMOGRAPHIC APPEARANCE OF BOTH BREASTS. SONOGRAPHIC FINDINGS DESCRIBED, POSS IBLY REPRESENTING A FOCAL AREA OF PARENCHYMA OR PERHAPS A SMALL FIBROADENOMA. NO WORRISOME CHARACTER ISTICS. BREAST DENSITY: b. There are scattered areas of fibroglandular density. BIRAD: 2 Benign findings. RECOMMENDATION: RECOMMENDED FOLLOW UP: Birads 1 or 2: No breast imaging finding to explain the patie nt's presenting complaint. Further intervention should be based on the degree of clinical suspicion. SPECIFIC INTERVENTION/IMAGING/CONSULTATION RECOMMENDED:No additional intervention/ imaging/consultati on needed at this time. COMMUNICATION:The negative/benign results were communicated to the patient. COMMENT: The patient has been notified of the results by letter per SA requirements. Additional no tification policies are in place for contacting patient with suspicious or incomplete findings. Quality ID #[id number]: The [employer] recommends an annual screening mammogram for women aged 40 years or over. This facility utilizes a reminder system to ensure that all patients receive reminder letters, and/or direct phone calls for appointments. This includes reminders for routine scr eening mammograms, diagnostic mammograms, or other Breast Imaging Interventions when appropriate. Th is patient will be placed in the appropriate reminder system. The [employer] (ACR) has developed recommendations for screening MRI of the breast s in certain patient populations, to be used in conjunction with mammography. Breast MRI surveillanc e may be appropriate for women with more than 20% lifetime risk of developing breast cancer as deter mined by genetic testing, significant family history of the disease, or history of mantle radiation f or Hodgkins Disease. ACR Practice Guidelines 2008. TECHNICAL DOCUMENTATION: FINDING NUMBER: (1) ASSESSMENT: (1) JOB ID: [id number] [employer]- All Rights Reserved
--- NOTE | 2017-02-10 14:23 | WOMENS IMAGING REPORT ---
EXAM DESCRIPTION: BILAT DIAGNOSTIC MAMMO W/CAD; U/S BREAST UNILAT LIMITED COMPLETED DATE/TIME: 02/10/2017 9:47 am; 02/10/2017 11:07 am REASON FOR STUDY: N64.4, MASTODYNIA; LT BREAST N64.4 N64.53 RETRACTION OF NIPPLE N64.4 MASTODYNIA COMPARISON: 12/01/2011 and 11/12/2009. TECHNIQUE: Standard craniocaudal and mediolateral oblique views of each breast recorded using [employer] acquisition. Additional images of the left breast include a true lateral view and spot compression lateral and CC views. LIMITATIONS: None. FINDINGS: RIGHT BREAST MASSES: No suspicious masses. CALCIFICATIONS: No new or suspicious calcifications. ARCHITECTURAL DISTORTION: None. DEVELOPING DENSITY: None. ASYMMETRY: None noted. OTHER: No other significant findings. LEFT BREAST MASSES: No suspicious masses. CALCIFICATIONS: No new or suspicious calcifications. ARCHITECTURAL DISTORTION: None. DEVELOPING DENSITY: None. ASYMMETRY: None noted. OTHER: No other significant finding. Read with the assistance of CAD: .[facility] - R2 Cenova Version 1.3 .[facility] Imaging - R2 Cenova Version 1.3 .[facility] Imaging - R2 Cenova Version 2.4 .[facility] [place]2 Cenova Version 2.4 .[facility] - R2 [employer] Version 9.2 BREAST ULTRASOUND: TECHNIQUE: Static and dynamic grayscale images acquired of the left breast in the specific areas of c linical/mammographic concern. Selected color Doppler images recorded. ELASTOGRAPHY PERFORMED: No. LIMITATIONS: None. FINDINGS: MASS: Immediately behind the nipple there is a questionable circumscribed mass measuring 5 x 8 mm. T his is homogeneous with smooth borders with echogenicity identical to parenchyma. No distal shadowin g. ELASTOGRAPHY CHARACTERISTICS: Not applicable. OTHER: No other significant finding. IMPRESSION: STABLE MAMMOGRAPHIC APPEARANCE OF BOTH BREASTS. SONOGRAPHIC FINDINGS DESCRIBED, POSS IBLY REPRESENTING A FOCAL AREA OF PARENCHYMA OR PERHAPS A SMALL FIBROADENOMA. NO WORRISOME CHARACTER ISTICS. BREAST DENSITY: b. There are scattered areas of fibroglandular density. BIRAD: 2 Benign findings. RECOMMENDATION: RECOMMENDED FOLLOW UP: Birads 1 or 2: No breast imaging finding to explain the patie nt's presenting complaint. Further intervention should be based on the degree of clinical suspicion. SPECIFIC INTERVENTION/IMAGING/CONSULTATION RECOMMENDED:No additional intervention/ imaging/consultati on needed at this time. COMMUNICATION:The negative/benign results were communicated to the patient. COMMENT: The patient has been notified of the results by letter per SA requirements. Additional no tification policies are in place for contacting patient with suspicious or incomplete findings. Quality ID #225: The [employer] recommends an annual screening mammogram for women aged 40 years or over. This facility utilizes a reminder system to ensure that all patients receive reminder letters, and/or direct phone calls for appointments. This includes reminders for routine scr eening mammograms, diagnostic mammograms, or other Breast Imaging Interventions when appropriate. Th is patient will be placed in the appropriate reminder system. The [employer] (ACR) has developed recommendations for screening MRI of the breast s in certain patient populations, to be used in conjunction with mammography. Breast MRI surveillanc e may be appropriate for women with more than 20% lifetime risk of developing breast cancer as deter mined by genetic testing, significant family history of the disease, or history of mantle radiation f or Hodgkins Disease. ACR Practice Guidelines 2008. TECHNICAL DOCUMENTATION: FINDING NUMBER: (1) ASSESSMENT: (1) JOB ID: [id number] [employer]- All Rights Reserved
== END ==
LOC: WI 09:19
DX: N64.4 Mastodynia (principal)
CPT/HCPCS: 76642; G0204; 77066

== ENCOUNTER 2017-03-01 09:30 | Emergency (ER) | payer SELFPAY ==
[2017-03-01] MEDS ORDERED: NORMAL SALINE 1000 ML 1,000 ML IV PRN (09:45)
--- NOTE | 2017-03-01 09:47 | ER Document Report ---
ED Medical Screen (RME) - General Chief Complaint: Syncope Stated Complaint: WEAK POSSIBLE SYNCOPE Time Seen by Provider: 03/01/17 09:41 Mode of Arrival: Wheelchair Information source: Patient, Relative TRAVEL OUTSIDE OF THE [place] IN LAST 30 DAYS: No - HPI Patient complains to provider of: Generalized weakness, syncopal episode Onset: Yesterday Onset/Duration: Persistent Quality of pain: No pain Associated Symptoms: Diarrhea, Nausea, Vomiting, Weakness Exacerbated by: Denies Relieved by: Denies Similar symptoms previously: No Recently seen / treated by doctor: No Notes: 03/01/17 09:45 Patient is a 61-year-old female who presents to the emergency room for generalized weakness, with a syncopal episode that occurred yesterday, she states she was at a family reunion on [place], she was in the bathroom with diarrhea, nausea and some vomiting, found her unresponsive on the floor, states he picked her up off the floor and she was immediately responsive but may have had loss of consciousness for several minutes prior to that, this occurred yesterday afternoon, patient returned home yesterday evening but continues to have generalized weakness today, denies any abdominal pain, no chest pain, no shortness of breath, no headache, states she feels dehydrated - Related Data Allergies/Adverse Reactions: No Known Allergies Allergy (Verified 03/01/17 09:31) Past Medical History - Past Medical History Cardiac Medical History: Reports: Hx Hypertension Pulmonary Medical History: Reports: Hx Bronchitis Denies: Hx Tuberculosis Neurological Medical History: Reports: Hx Seizures Renal/ Medical History: Reports: Hx Ovarian Cysts. Denies: Hx Peritoneal Dialysis GI Medical History: Reports: Hx Gastroesophageal Reflux Disease, Hx Hiatal Hernia Musculoskeltal Medical History: Reports Hx Arthritis Traumatic Medical History: Reports: Hx Fractures - Collar bone as child Past Surgical History: Reports: Hx Cholecystectomy, Hx Hysterectomy. Denies: Hx Pacemaker - Immunizations Immunizations up to date: No Hx Diphtheria, Pertussis, Tetanus Vaccination: No Physical Exam - Vital signs Vitals: Temp Pulse Resp BP Pulse Ox 98.4 F 85 20 153/89 H 97 03/01/17 09:37 03/01/17 09:37 03/01/17 09:37 03/01/17 09:37 03/01/17 09:37 Course - Vital Signs Vital signs: Temp Pulse Resp BP Pulse Ox 98.4 F 85 20 153/89 H 97 03/01/17 09:37 03/01/17 09:37 03/01/17 09:37 03/01/17 09:37 03/01/17 09:37
[2017-03-01 10:07] VITALS: BP 140/90
[2017-03-01 10:29] LABS: ABSOLUTE BASOPHILS # (AUTO) 0.1 10^3/uL (0.0-0.2); ABSOLUTE LYMPHOCYTES (AUTO) 1.9 10^3/uL (0.5-4.7); ABSOLUTE MONOCYTES (AUTO) 0.7 10^3/uL (0.1-1.4); ABSOLUTE NEUT (AUTO) 8.4 10^3/uL (1.7-8.2); BASOPHILS % (AUTO) 0.6 % (0-2); EOSINOPHILS % (AUTO) 0.2 % (0-6); HEMATOCRIT 40.3 % (36.0-47.0); HEMOGLOBIN 13.4 g/dL (12.0-15.5); HGB HCT DIFFERENCE -0.1; LYMPHOCYTES % (AUTO) 17.1 % (13-45); MEAN CORPUSCULAR HEMOGLOBIN 28.7 pg (27.0-33.4); MEAN CORPUSCULAR HGB CONC 33.3 g/dL (32.0-36.0); MEAN CORPUSCULAR VOLUME 86 fl (80-97); MONOCYTES % (AUTO) 6.3 % (3-13); RED BLOOD COUNT 4.67 10^6/uL (3.72-5.28); RED CELL DISTRIBUTION WIDTH 14.3 % (11.5-14.0); SEGMENTED NEUTROPHILS % (AUTO) 75.8 % (42-78); WHITE BLOOD COUNT 11.1 10^3/uL (4.0-10.5)
--- NOTE | 2017-03-01 10:35 | ER Document Report ---
ED General - General Chief Complaint: Syncope Stated Complaint: WEAK POSSIBLE SYNCOPE Time Seen by Provider: 03/01/17 09:41 Mode of Arrival: Wheelchair TRAVEL OUTSIDE OF THE [place] IN LAST 30 DAYS: No - HPI Patient complains to provider of: Syncope weakness Notes: Patient coming in for the feeling of general lysed weakness and possible syncopal episode. Patient states she was at a reunion day prior to arrival was on toilet when she was found passed out found her states that the patient was diaphoretic at the time patient denies any head pain chest pain abdominal pain prior to or after this event however today continues to feel generally weak therefore came to the ER for further evaluation denies any changes of her medication denies any fevers chills nausea vomiting chest pain abdominal pain at this time. Patient states states she thinks she was too hot the other day. Patient states she has not been drinking a lot of water. Patient did have orthostatics done in triage which were positive. Patient states upon standing she did so weak and dizzy at that time. Upon my evaluation patient ANO 3 GCS 15 no current complaints no signs of impending distress. - Related Data Allergies/Adverse Reactions: No Known Allergies Allergy (Verified 03/01/17 09:31) Past Medical History - General Information source: Patient, Relative - Social History Smoking Status: Never Smoker Chew tobacco use (# tins/day): No Frequency of alcohol use: None Drug Abuse: None Family History: Reviewed & Not Pertinent, DM, Hypertension [place] [id number]). He another Norvasc 10 of Norvasc 5 on the chart Patient has suicidal ideation: No Patient has homicidal ideation: No - Past Medical History Cardiac Medical History: Reports: Hx Hypertension Pulmonary Medical History: Reports: Hx Bronchitis Denies: Hx Tuberculosis Neurological Medical History: Reports: Hx Seizures Renal/ Medical History: Reports: Hx Ovarian Cysts. Denies: Hx Peritoneal Dialysis GI Medical History: Reports: Hx Gastroesophageal Reflux Disease, Hx Hiatal Hernia Musculoskeltal Medical History: Reports Hx Arthritis Traumatic Medical History: Reports: Hx Fractures - Collar bone as child Past Surgical History: Reports: Hx Cholecystectomy, Hx Hysterectomy. Denies: Hx Pacemaker - Immunizations Immunizations up to date: No Hx Diphtheria, Pertussis, Tetanus Vaccination: No Review of Systems - Review of Systems Constitutional: Weakness EENT: No symptoms reported Cardiovascular: Syncope Respiratory: No symptoms reported Gastrointestinal: No symptoms reported Genitourinary: No symptoms reported Female Genitourinary: No symptoms reported Musculoskeletal: No symptoms reported Skin: No symptoms reported Hematologic/Lymphatic: No symptoms reported Neurological/Psychological: No symptoms reported -: Yes All other systems reviewed and negative Physical Exam - Vital signs Vitals: Temp Pulse Resp BP Pulse Ox 98.4 F 85 20 153/89 H 97 03/01/17 09:37 03/01/17 09:37 03/01/17 09:37 03/01/17 09:37 03/01/17 09:37 Interpretation: Normal - General General appearance: Appears well, Alert - HEENT Head: Normocephalic, Atraumatic Eyes: Normal Pupils: PERRL - Respiratory Respiratory status: No respiratory distress Chest status: Nontender Breath sounds: Normal Chest palpation: Normal - Cardiovascular Rhythm: Regular Heart sounds: Normal auscultation Murmur: No - Abdominal Inspection: Normal Distension: No distension Bowel sounds: Normal Tenderness: Nontender Organomegaly: No organomegaly - Back Back: Normal, Nontender - Extremities General upper extremity: Normal inspection, Nontender, Normal color, Normal ROM , Normal temperature General lower extremity: Normal inspection, Nontender, Normal color, Normal ROM , Normal temperature, Normal weight bearing. No: Emerita's sign - Neurological Neuro grossly intact: Yes Cognition: Normal Orientation: AAOx4 [place] Coma Scale Eye Opening: Spontaneous Josue Coma Scale Verbal: Oriented [place] Coma Scale Motor: Obeys Commands Josue Coma Scale Total: 15 Speech: Normal Motor strength normal: LUE, RUE, LLE, RLE Sensory: Normal - Psychological Associated symptoms: Normal affect, Normal mood - Skin Skin Temperature: Warm Skin Moisture: Dry Skin Color: Normal Course - Re-evaluation Re-evalutation: 03/01/17 10:35 Patient more likely dehydrated with positive orthostatics patient will receive a liter fluid we will check the patient's Keppra and carbamazepine levels more likely disposition is home 03/01/17 18:18 Patient able to ambulate to the bathroom states still feeling weak dizziness has resolved. Encourage patient drink plenty water stay hydrated. Patient also encouraged to eat for the next 24-48 hours. Patient agrees with discharge. - Vital Signs Vital signs: Temp Pulse Resp BP Pulse Ox 98.4 F 74 20 140/90 H 97 03/01/17 09:37 03/01/17 10:05 03/01/17 09:37 03/01/17 10:05 03/01/17 09:37 - Laboratory Result Diagrams: 03/01/17 10:10 03/01/17 10:10 Laboratory results interpreted by me: 03/01/17 03/01/17 10:10 10:10 WBC 11.1 H RDW 14.3 H Absolute Neutrophils 8.4 H Alkaline Phosphatase 146 H Total Protein 8.4 H Discharge - Discharge Clinical Impression: Dehydration Syncope Qualifiers: Syncope type: unspecified Qualified Code(s): R55 - Syncope and collapse Condition: Good Disposition: HOME, SELF-CARE Instructions: Syncopal Episode ([facility]), Dehydration ([facility]) Additional Instructions: Your laboratory studies today show signs of dehydration. Otherwise there is no other critical etiology. I would avoid any further heat exposure today. Follow -up with your primary care physician. Make sure that you are drinking plenty of fluids such as Gatorade and water to stay hydrated. Referrals: JALIL KITCHEN MD [Primary Care Provider] - Follow up as needed
[2017-03-01 10:36] LABS: APPEARANCE,URINE CLEAR; BILIRUBIN,URINE NEGATIVE (NEGATIVE); GLUCOSE, URINE NEGATIVE (NEGATIVE); KETONES,URINE NEGATIVE (NEGATIVE); LEUKOCYTE ESTERASE,URINE NEGATIVE (NEGATIVE); NITRITE,URINE NEGATIVE (NEGATIVE); PROTEIN,URINE NEGATIVE (NEGATIVE); URINE SPECIFIC GRAVITY 1.016; UROBILINOGEN,URINE NEGATIVE mg/dL (<2.0)
[2017-03-01 10:42] LABS: ALANINE AMINOTRANSFERASE 23 U/L (9-52); ALBUMIN 4.5 g/dL (3.5-5.0); ALKALINE PHOSPHATASE 146 U/L (38-126); ANION GAP 14 (5-19); ASPARTATE AMINO TRANSFERASE 20 U/L (14-36); BILIRUBIN,DIRECT 0.3 mg/dL (0.0-0.4); BILIRUBIN,TOTAL 0.5 mg/dL (0.2-1.3); BLOOD UREA NITROGEN 18 mg/dL (7-20); CALCIUM 9.7 mg/dL (8.4-10.2); CARBON DIOXIDE 25 mmol/L (22-30); CHLORIDE 102 mmol/L (98-107); CREATINE KINASE 37 U/L (30-135); GLUCOSE 95 mg/dL (75-110); POTASSIUM 4.3 mmol/L (3.6-5.0); SODIUM 141.2 mmol/L (137-145); TOTAL PROTEIN 8.4 g/dL (6.3-8.2)
[2017-03-01 10:56] LABS: CREATINE KINASE MB < 0.22 ng/mL (<4.55); TROPONIN I < 0.012 ng/mL
--- NOTE | 2017-03-01 11:36 | RADIOLOGY REPORT (SQ) ---
EXAM DESCRIPTION: CHEST SINGLE VIEW COMPLETED DATE/TIME: 03/01/2017 11:14 am REASON FOR STUDY: sob COMPARISON: 12/21/2016 EXAM PARAMETERS: NUMBER OF VIEWS: One view. TECHNIQUE: Single frontal radiographic view of the chest acquired. RADIATION DOSE: NA LIMITATIONS: None. FINDINGS: LUNGS AND PLEURA: No opacities, masses or pneumothorax. No pleural effusion. MEDIASTINUM AND HILAR STRUCTURES: No masses. Contour normal. HEART AND VASCULAR STRUCTURES: Heart normal in size. Normal vasculature. BONES: No acute findings. HARDWARE: None in the chest. OTHER: No other significant finding. IMPRESSION: NO ACUTE RADIOGRAPHIC FINDING IN THE CHEST. TECHNICAL DOCUMENTATION: JOB ID: [id number]
--- NOTE | 2017-03-02 00:19 | EKG REPORT ---
SEVERITY:- NORMAL ECG - SINUS RHYTHM : Confirmed by: Simón Montoya 02-Mar-2017 00:18:15
== END 2017-03-01 12:27 | disposition home or self-care (01) ==
LOC: ER 09:30
DX: E86.0 Dehydration (principal); R55 Syncope and collapse; R53.1 Weakness; I10 Essential (primary) hypertension
CPT/HCPCS: 93005; 99284; 96360; 36415; 80177; 82553; 82550; 80156; 85025; 80053; 81001; 84484; 71010; 93010; J7030

== ENCOUNTER 2017-06-22 11:56 | Emergency (ER) | payer OTHER ==
--- NOTE | 2017-06-22 12:36 | ER Document Report ---
ED Medical Screen (RME) - General Chief Complaint: Lower Abdominal Pain Stated Complaint: ABDOMINAL PAIN,DIARRHEA,VAGINAL PAIN Time Seen by Provider: 06/22/17 12:34 Notes: Patient says that she has been having pain with sexual relations over the past 2 weeks. She has tried movc-leq-mkhnzki creams without success. In addition, she is developed diarrhea in the past 2 days. No vomiting. No fevers. Not known to be diabetic. No change in medications and has not been on an antibiotic in the past month. Patient has a history of hypertension and also epilepsy on Keppra and another medication. TRAVEL OUTSIDE OF THE [place] IN LAST 30 DAYS: No - Related Data Allergies/Adverse Reactions: No Known Allergies Allergy (Verified 06/22/17 11:58) Home Medications: Current Home Medications Levetiracetam [Keppra 500 mg Tablet] 1 tab PO BID 06/22/17 [History] Past Medical History - Social History Frequency of alcohol use: None Drug Abuse: None - Past Medical History Cardiac Medical History: Reports: Hx Hypertension Pulmonary Medical History: Reports: Hx Bronchitis Denies: Hx Tuberculosis Neurological Medical History: Reports: Hx Seizures Renal/ Medical History: Reports: Hx Ovarian Cysts. Denies: Hx Peritoneal Dialysis GI Medical History: Reports: Hx Gastroesophageal Reflux Disease, Hx Hiatal Hernia Musculoskeltal Medical History: Reports Hx Arthritis Traumatic Medical History: Reports: Hx Fractures - Collar bone as child Past Surgical History: Reports: Hx Cholecystectomy, Hx Hysterectomy. Denies: Hx Pacemaker - Immunizations Immunizations up to date: No Hx Diphtheria, Pertussis, Tetanus Vaccination: No Physical Exam - Vital signs Vitals: Temp Pulse Resp BP Pulse Ox 98.0 F 85 18 123/81 97 06/22/17 12:02 06/22/17 12:02 06/22/17 12:02 06/22/17 12:02 06/22/17 12:02 Course - Vital Signs Vital signs: Temp Pulse Resp BP Pulse Ox 98.0 F 85 18 123/81 97 06/22/17 12:02 06/22/17 12:02 06/22/17 12:02 06/22/17 12:02 06/22/17 12:02
[2017-06-22 13:24] LABS: APPEARANCE,URINE SLIGHTLY-CLOUDY; BILIRUBIN,URINE NEGATIVE (NEGATIVE); GLUCOSE, URINE NEGATIVE (NEGATIVE); KETONES,URINE NEGATIVE (NEGATIVE); LEUKOCYTE ESTERASE,URINE SMALL (NEGATIVE); NITRITE,URINE NEGATIVE (NEGATIVE); PROTEIN,URINE NEGATIVE (NEGATIVE); URINE SPECIFIC GRAVITY 1.023; UROBILINOGEN,URINE NEGATIVE mg/dL (<2.0)
--- NOTE | 2017-06-22 13:28 | ER Document Report ---
ED General - General Chief Complaint: Lower Abdominal Pain Stated Complaint: ABDOMINAL PAIN,DIARRHEA,VAGINAL PAIN Time Seen by Provider: 06/22/17 12:34 TRAVEL OUTSIDE OF THE [place] IN LAST 30 DAYS: No - HPI Notes: Patient is a 61-year-old female with no significant past medical history who presents the ED complaining of left lower quadrant pain and diarrhea 2 days. Patient also complains of vaginal dryness and irritation/discomfort during intercourse. Patient states that she is still eating and drinking without any difficulties. She is still urinating normally without any problems. Patient states that she has had 3 loose stools this morning and 4 yesterday with 3 the night before. She has tried some Imodium with minimal relief. She denies any recent antibiotic use or illness. Patient states that her stools are brown colored. She denies any drug allergies. Patient has never had a colonoscopy performed in the past. She denies any IV drug use. Patient states that her and her have tried using jbua-mqb-oovwgnm lubricants with minimal relief. She has not noticed any vaginal bleeding or discharge. Patient states that she did have a hysterectomy in the past. Patient denies any hormone replacement use. Denies any headache, fever, neck pain, URI, sore throat, chest pain, palpitations, syncope, cough, shortness of breath, wheeze, dyspnea, nausea/vomiting, urinary retention, dysuria, hematuria, loss of control of bowel or bladder, numbness/tingling, saddle anesthesia, muscle paralysis/ weakness, or rash. - Related Data Allergies/Adverse Reactions: No Known Allergies Allergy (Verified 06/22/17 11:58) Home Medications: Current Home Medications Levetiracetam [Keppra 500 mg Tablet] 1 tab PO BID 06/22/17 [History] Past Medical History - Social History Smoking Status: Never Smoker Frequency of alcohol use: None Drug Abuse: None Family History: Reviewed & Not Pertinent, DM, Hypertension [place] [address]). He another Norvasc 10 of Norvasc 5 on the chart Patient has suicidal ideation: No Patient has homicidal ideation: No - Past Medical History Cardiac Medical History: Reports: Hx Hypertension Pulmonary Medical History: Reports: Hx Bronchitis Denies: Hx Tuberculosis Neurological Medical History: Reports: Hx Seizures Renal/ Medical History: Reports: Hx Ovarian Cysts. Denies: Hx Peritoneal Dialysis GI Medical History: Reports: Hx Gastroesophageal Reflux Disease, Hx Hiatal Hernia Musculoskeltal Medical History: Reports Hx Arthritis Traumatic Medical History: Reports: Hx Fractures - Collar bone as child Past Surgical History: Reports: Hx Cholecystectomy, Hx Hysterectomy. Denies: Hx Pacemaker - Immunizations Immunizations up to date: No Hx Diphtheria, Pertussis, Tetanus Vaccination: No Review of Systems - Review of Systems Notes: REVIEW OF SYSTEMS: CONSTITUTIONAL : Denies fever, chills, or sweats. Denies recent illness. EENT: Denies eye, ear, throat, or mouth pain or symptoms. Denies nasal or sinus congestion or discharge. Denies throat, tongue, or mouth swelling or difficulty swallowing. CARDIOVASCULAR: Denies chest pain. Denies palpitations or racing or irregular heart beat. Denies ankle edema. RESPIRATORY: Denies cough, cold, or chest congestion. Denies shortness of breath, difficulty breathing, or wheezing. GASTROINTESTINAL: see hpi GENITOURINARY: Denies difficulty urinating, painful urination, burning, frequency, blood in urine, or discharge. FEMALE GENITOURINARY: see hpi MUSCULOSKELETAL: Denies back or neck pain or stiffness. Denies joint pain or swelling. SKIN: Denies rash, lesions or sores. NEUROLOGICAL: Denies confusion or altered mental status. Denies passing out or loss of consciousness. Denies dizziness or lightheadedness. Denies headache. Denies weakness or paralysis or loss of use of either side. Denies problems with gait or speech. Denies sensory loss, numbness, or tingling. ALL OTHER SYSTEMS REVIEWED AND NEGATIVE. Dictation was performed using [employer] voice recognition software Physical Exam - Vital signs Vitals: Temp Pulse Resp BP Pulse Ox 98.0 F 85 18 123/81 97 06/22/17 12:02 06/22/17 12:02 06/22/17 12:02 06/22/17 12:02 06/22/17 12:02 Notes: PHYSICAL EXAMINATION: GENERAL: Well-appearing, well-nourished and in no acute distress. A&Ox4 LUNGS: Breath sounds clear to auscultation bilaterally and equal. No wheezes rales or rhonchi. HEART: Regular rate and rhythm without murmurs, rubs, gallops. ABDOMEN: Soft, nondistended abdomen. No guarding, no rebound. No masses appreciated. Normal bowel sounds present. No CVA tenderness bilaterally. + tenderness to the LLQ. : deferred Musculoskeletal: FROM to passive/active. Strength 5+/5. Extremities: No cyanosis, clubbing, or edema b/l. Peripheral pulses 2+. Capillary refill less than 3 seconds. NEUROLOGICAL: Normal speech, normal gait. Normal sensory, motor exams PSYCH: Normal mood, normal affect. SKIN: Warm, Dry, normal turgor, no rashes or lesions noted. Course - Re-evaluation Re-evalutation: 06/22/17 15:42 Patient is an afebrile, well-hydrated, 61-year-old female who presents the ED with abdominal pain, diarrhea, vaginitis. Vitals are stable. PE is otherwise unremarkable. CBC, CMP, lipase, urinalysis were unremarkable. CT scan of the abdomen and pelvis was unremarkable for any acute pathology, but did reveal diverticulosis. Pt has not had any issues with loose stool while in the ED. Pain has not been worsening. Low suspicion/risk for acute appendicitis, bowel obstruction, acute cholecystitis, acute cholangitis, perforated diverticulitis, incarcerated hernia, pancreatitis, perforated ulcer, peritonitis, sepsis, pelvic inflammatory disease, ectopic , tubo-ovarian abscess, ovarian torsion, or other systemic emergent condition at this time. Patient is aware that her condition can change from initial presentation and she needs to monitor symptoms closely and seek medical attention if any acute changes. Advised patient continue to try to use evgf-jjp-ekgturj lubricants during intercourse until she has an evaluation with [facility]. Conservative measures otherwise for symptoms. Recheck with OBGYN in 3-5 days. Recheck with your PCM in 3-5 days. Consider consult with a electrical and instrument technician. Return to the ED with any worsening/concerning symptoms otherwise as reviewed in discharge. Patient is in agreement. - Vital Signs Vital signs: Temp Pulse Resp BP Pulse Ox 98.0 F 85 18 123/81 97 06/22/17 12:02 06/22/17 12:02 06/22/17 12:02 06/22/17 12:02 06/22/17 12:02 - Laboratory Result Diagrams: 06/22/17 13:32 06/22/17 13:32 Laboratory results interpreted by me: 06/22/17 06/22/17 06/22/17 12:40 12:44 13:32 RDW 14.5 H POC Glucose 111 H Urine Blood SMALL H Ur Leukocyte Esterase SMALL H Discharge - Discharge Clinical Impression: Unspecified abdominal pain Qualifiers: Abdominal location: left lower quadrant Qualified Code(s): R10.32 - Left lower quadrant pain Vaginitis Qualifiers: Chronicity: acute Qualified Code(s): N76.0 - Acute vaginitis Condition: Stable Disposition: HOME, SELF-CARE Instructions: Abdominal Pain ([facility]), Low-Fat Diet ([facility]), Diarrhea, Nonspecific ( [facility]) Additional Instructions: Maintain adequate fluid and food intake Stevens diet ([employer] Bananas, rice, apples, toast, etc Zofran as needed tylenol/ibuprofen if needed Use otc lubricants as needed May use otc antidiarrheal medication(s) as needed Monitor for any worsening symptoms Make sure you are staying hydrated enough to urinate and have normal BM's Recheck with your PCM in 3-5 days Consider consult with Gastroenterology for further evaluation and to schedule a colonoscopy Recheck with the OBGYN for further evaluation and management of your vaginitis. Return to the ED with any worsening symptoms and/or development of fever, headache, chest pain, palpitations, syncope, shortness of breath, trouble breathing, abdominal pain, n/v/d, blood in stool/urine, weakness, or other worsening symptoms that are concerning to you. Referrals: [facility] [Provider Group] - Follow up as needed TODD LEAHY MD [ACTIVE STAFF] - Follow up in 3-5 days LILLY GÓMEZ MD [ACTIVE STAFF] - Follow up in 1 week
[2017-06-22] MEDS: NORMAL SALINE 1000 ML 1,000 ML IV PRN ×2 (13:42→13:43)
[2017-06-22 13:48] LABS: ABSOLUTE BASOPHILS # (AUTO) 0.1 10^3/uL (0.0-0.2); ABSOLUTE LYMPHOCYTES (AUTO) 1.3 10^3/uL (0.5-4.7); ABSOLUTE MONOCYTES (AUTO) 0.7 10^3/uL (0.1-1.4); ABSOLUTE NEUT (AUTO) 6.5 10^3/uL (1.7-8.2); BASOPHILS % (AUTO) 0.7 % (0-2); EOSINOPHILS % (AUTO) 0.5 % (0-6); HEMATOCRIT 36.1 % (36.0-47.0); HEMOGLOBIN 12.8 g/dL (12.0-15.5); HGB HCT DIFFERENCE 2.3; LYMPHOCYTES % (AUTO) 15.5 % (13-45); MEAN CORPUSCULAR HEMOGLOBIN 29.6 pg (27.0-33.4); MEAN CORPUSCULAR HGB CONC 35.5 g/dL (32.0-36.0); MEAN CORPUSCULAR VOLUME 84 fl (80-97); MONOCYTES % (AUTO) 8.1 % (3-13); RED BLOOD COUNT 4.32 10^6/uL (3.72-5.28); RED CELL DISTRIBUTION WIDTH 14.5 % (11.5-14.0); SEGMENTED NEUTROPHILS % (AUTO) 75.2 % (42-78); WHITE BLOOD COUNT 8.6 10^3/uL (4.0-10.5)
[2017-06-22 14:00] LABS: ALANINE AMINOTRANSFERASE 23 U/L (9-52); ALBUMIN 4.1 g/dL (3.5-5.0); ALKALINE PHOSPHATASE 123 U/L (38-126); ANION GAP 11 (5-19); ASPARTATE AMINO TRANSFERASE 16 U/L (14-36); BILIRUBIN,DIRECT 0.3 mg/dL (0.0-0.4); BILIRUBIN,TOTAL 0.3 mg/dL (0.2-1.3); BLOOD UREA NITROGEN 16 mg/dL (7-20); CALCIUM 9.5 mg/dL (8.4-10.2); CARBON DIOXIDE 26 mmol/L (22-30); CHLORIDE 106 mmol/L (98-107); CREATININE RESULT 0.89 mg/dL (0.52-1.25); GLUCOSE 96 mg/dL (75-110); LIPASE 77.8 U/L (23-300); POTASSIUM 3.7 mmol/L (3.6-5.0); TOTAL PROTEIN 7.5 g/dL (6.3-8.2)
--- NOTE | 2017-06-22 15:41 | RADIOLOGY REPORT (SQ) ---
EXAM DESCRIPTION: CT ABD/PELVIS WITH IV ONLY COMPLETED DATE/TIME: 06/22/2017 3:12 pm REASON FOR STUDY: LLQ pain, diarrhea COMPARISON: None. TECHNIQUE: CT scan of the abdomen and pelvis performed using helical scanning technique with dynamic intravenous contrast injection. No oral contrast. Images reviewed with lung, soft tissue, and bone windows. Reconstructed coronal and sagittal MPR images reviewed. Delayed images for evaluation of the urinary system also acquired. All images stored on PACS. All CT scanners at this facility use dose modulation, iterative reconstruction, and/or weight based d osing when appropriate to reduce radiation dose to as low as reasonably achievable (ALARA). [facility]: Dose Right [facility]: CareDose [facility]: Dose Right [facility]: Teradose 4D [facility]: SkyFuel CONTRAST TYPE AND DOSE: contrast/concentration: Isovue 370.00 mg/ml; Total Contrast Delivered: 95.0 ml; Total Saline Delivered: 70.0 ml RENAL FUNCTION: Creatinine 0.9 BUN 16 RADIATION DOSE: Up-to-date CT equipment and radiation dose reduction techniques were employed. CTDIv ol: 13.0 - 17.5 mGy. DLP: 1761 mGy-cm.. LIMITATIONS: None. FINDINGS: LOWER CHEST: No significant findings. No nodules or infiltrates. LIVER: Normal size. No masses. No dilated ducts. SPLEEN: Normal size. No focal lesions. PANCREAS: No masses. No significant calcifications. No adjacent inflammation or peripancreatic fluid collections. Pancreatic duct not dilated. GALLBLADDER: Surgically absent. ADRENAL GLANDS: No significant masses or asymmetry. RIGHT KIDNEY AND URETER: No solid masses. No significant calcifications. No hydronephrosis or hyd roureter. LEFT KIDNEY AND URETER: No solid masses. No significant calcifications. No hydronephrosis or hydr oureter. AORTA AND VESSELS: No aneurysm. No dissection. Renal arteries, SMA, celiac without stenosis. RETROPERITONEUM: No retroperitoneal adenopathy, hemorrhage or masses. BOWEL AND PERITONEAL CAVITY: Diverticula arise from the descending colon and sigmoid colon. There ar e no acute inflammatory changes. There are no masses. APPENDIX: Surgically absent. PELVIS: Urinary bladder is normal. Uterus is absent. There is no adnexal mass or fluid collection. ABDOMINAL WALL: No masses. No hernias. BONES: No significant or acute findings. OTHER: No other significant finding. IMPRESSION: Diverticulosis coli with no acute inflammatory changes. There are no findings that expl ain the patient's pain. TECHNICAL DOCUMENTATION: JOB ID: [id number] Quality ID # [id number]: Final reports with documentation of one or more dose reduction techniques (e.g., Au tomated exposure control, adjustment of the mA and/or kV according to patient size, use of iterative reconstruction technique) 2010 [employer]- All Rights Reserved
[2017-06-22 16:06] VITALS: BP 120/61
== END 2017-06-22 16:06 | disposition home or self-care (01) ==
LOC: ER 11:56
DX: N76.0 Acute vaginitis (principal); N94.10 Unspecified dyspareunia; R10.32 Left lower quadrant pain; R19.7 Diarrhea, unspecified; I10 Essential (primary) hypertension; K57.30 Diverticulosis of large intestine without perforation or abscess without bleeding; Z90.49 Acquired absence of other specified parts of digestive tract; Z87.42 Personal history of other diseases of the female genital tract
CPT/HCPCS: 99284; 96360; 36415; 87086; 82962; 83690; 85025; 87088; 80053; 81001; 87186; 74177; J7030

== ENCOUNTER 2017-08-24 21:00 | Emergency (ER) | payer OTHER ==
[2017-08-24 21:32] VITALS: BP 119/82
[2017-08-25] MEDS ORDERED: PREDNISONE 20 MG TABLET PO ONE (00:05)
[2017-08-25] MEDS ORDERED: IPRATROPIUM/ALBUTEROL 0.5-2.5 MG/3 ML AMPUL NEB ONE ×3 (00:05→01:24)
--- NOTE | 2017-08-25 00:09 | ER Document Report ---
ED General - General Chief Complaint: Sore Throat Stated Complaint: COLD SYMPTOMS Time Seen by Provider: 08/24/17 23:41 Notes: Patient is a 61-year-old female comes emergency department for chief complaint of sore throat for the past couple of days, she also has a cough with occasional green sputum production, sinus pain, and chills. She states she feels that she is wheezing as well. She denies shortness of breath, chest pain , nausea or vomiting, abdominal pain, headache. She denies ever smoking, past medical history of seizures and hypertension, medicated for both. TRAVEL OUTSIDE OF THE [place] IN LAST 30 DAYS: No - Related Data Allergies/Adverse Reactions: No Known Allergies Allergy (Verified 06/22/17 11:58) Past Medical History - General Information source: Patient - Social History Smoking Status: Never Smoker Frequency of alcohol use: None Drug Abuse: None Lives with: Family Family History: Reviewed & Not Pertinent, DM, [place]ension [place] [id number]). He another Norvasc 10 of Norvasc 5 on the chart Patient has suicidal ideation: No Patient has homicidal ideation: No - Past Medical History Cardiac Medical History: Reports: Hx Hypertension Pulmonary Medical History: Reports: Hx Bronchitis Denies: Hx Tuberculosis Neurological Medical History: Reports: Hx Seizures Renal/ Medical History: Reports: Hx Ovarian Cysts. Denies: Hx Peritoneal Dialysis GI Medical History: Reports: Hx Gastroesophageal Reflux Disease, Hx Hiatal Hernia Musculoskeltal Medical History: Reports Hx Arthritis Traumatic Medical History: Reports: Hx Fractures - Collar bone as child Past Surgical History: Reports: Hx Cholecystectomy, Hx Hysterectomy. Denies: Hx Pacemaker - Immunizations Immunizations up to date: No Hx Diphtheria, Pertussis, Tetanus Vaccination: No Review of Systems - Review of Systems Constitutional: See HPI EENT: See HPI Cardiovascular: No symptoms reported Respiratory: See HPI Gastrointestinal: No symptoms reported Genitourinary: No symptoms reported Female Genitourinary: No symptoms reported Musculoskeletal: No symptoms reported Skin: No symptoms reported Hematologic/Lymphatic: No symptoms reported Neurological/Psychological: No symptoms reported Physical Exam - Vital signs Vitals: Temp Pulse Resp BP Pulse Ox 98.9 F 97 16 119/82 100 08/24/17 21:31 08/24/17 21:31 08/24/17 21:31 08/24/17 21:31 08/24/17 21:31 Interpretation: Normal - General General appearance: Appears well, Alert In distress: None - HEENT Head: Normocephalic, Atraumatic Eyes: Normal Conjunctiva: Normal Extraocular movements intact: Yes Eyelashes: Normal Pupils: PERRL Ears: Normal External canal: Other - Erythematous external canal, especially on the left side , tragal tenderness, no swelling, no foreign body, otherwise unremarkable ear exam Tympanic membrane: Normal Sinus: Other - There is some sinus congestion along with nasal congestion but no overt tenderness of the sinuses Mucous membranes: Normal Pharynx: Erythema - Minimal erythema. No: Tonsillar hypertrophy, Uvular edema Neck: Normal. No: Anterior cervical chain - Respiratory Respiratory status: No respiratory distress. No: Respiratory distress, Labored , Tachypnea Chest status: Nontender Breath sounds: Decreased air movement, Nonproductive cough, Wheezing Chest palpation: Normal - Cardiovascular Rhythm: Regular. No: Tachycardia Heart sounds: Normal auscultation, S1 appreciated, S2 appreciated Murmur: No - Abdominal Inspection: Normal Distension: No distension Bowel sounds: Normal Tenderness: Nontender Organomegaly: No organomegaly - Back Back: Normal, Nontender - Extremities General upper extremity: Normal inspection, Nontender, Normal color, Normal ROM , Normal temperature General lower extremity: Normal inspection, Nontender, Normal color, Normal ROM , Normal temperature, Normal weight bearing. No: Emerita's sign - Neurological Neuro grossly intact: Yes Cognition: Normal Orientation: AAOx4 Josue Coma Scale Eye Opening: Spontaneous Josue Coma Scale Verbal: Oriented Cecilia Coma Scale Motor: Obeys Commands Josue Coma Scale Total: 15 Speech: Normal Motor strength normal: LUE, RUE, LLE, RLE Sensory: Normal - Psychological Associated symptoms: Normal affect, Normal mood - Skin Skin Temperature: Warm Skin Moisture: Dry Skin Color: Normal Course - Re-evaluation Re-evalutation: Patient with expiratory wheezes, nonproductive cough, however she has no tachypnea, hypoxia, or signs of distress. She is also congested. Suspect bronchitis with upper respiratory infection. After breathing treatments, prednisone patient's wheezing resolved. Patient also has an otitis externa on examination. Patient denies that she is ever smoked, denies COPD. She is ready to leave. Patient treated with albuterol, prednisone, azithromycin, discussed follow-up instructions and strict return precautions. Patient states understanding, has been no at bedside state understanding and agreement. - Vital Signs Vital signs: Temp Pulse Resp BP Pulse Ox 98.9 F 97 16 119/82 100 08/24/17 21:31 08/24/17 21:31 08/24/17 21:31 08/24/17 21:31 08/24/17 21:31 Discharge - Discharge Clinical Impression: Wheezing Upper respiratory infection Qualifiers: URI type: unspecified URI Qualified Code(s): J06.9 - Acute upper respiratory infection, unspecified Sinusitis Qualifiers: Sinusitis location: unspecified location Chronicity: acute Recurrence: non- recurrent Qualified Code(s): J01.90 - Acute sinusitis, unspecified Otitis externa Qualifiers: Otitis externa type: unspecified type Chronicity: acute Laterality: left Qualified Code(s): H60.502 - Unspecified acute noninfective otitis externa, left ear Disposition: HOME, SELF-CARE Additional Instructions: Your examination is consistent with bronchitis and sinusitis, in addition to this you have otitis externa in the left ear. Take prednisone as prescribed, take azithromycin as prescribed, take the eardrops (4 drops twice a day for 7 days). Use the albuterol inhaler with the spacer. Follow-up with primary care. Return if you worsen in any way including difficulty breathing, spiking fever, or any other concerning symptoms. Prescriptions: Albuterol Sulfate [Proair HFA Inhalation Aerosol 8.5 gm MDI] 2 puff IH Q4H PRN # 1 mdi PRN Reason: Azithromycin [Zithromax 250 mg Tablet] 250 mg PO ASDIR PRN #4 tablet PRN Reason: Prednisone 60 mg PO DAILY #15 tablet Referrals: AGUILA KITCHEN PA [Primary Care Provider] - Follow up in 3-5 days
[2017-08-25] MEDS ORDERED: CIPROFLOXACIN HCL/DEXAMETH OTIC DROP 7.5 ML AS ONE (01:25)
--- NOTE | 2017-08-25 01:38 | RADIOLOGY REPORT (SQ) ---
EXAM DESCRIPTION: CHEST PA/LAT CLINICAL HISTORY: 61 years, Female, productive cough, chills COMPARISON: 03/01/2017. NUMBER OF VIEWS: Two TECHNIQUE: PA lateral LIMITATIONS: None. FINDINGS: Prominent interstitium. Normal cardiac silhouette. Right upper abdominal clips. Stable. IMPRESSION: No acute cardiopulmonary findings. 2011 [facility] [employer]- All Rights Reserved
[2017-08-25] MEDS ORDERED: ALBUTEROL SULFATE HFA (90 MCG/PUFF) 8 GM MDI (1 MDI/ER DISP) IH ONE (02:14)
[2017-08-25] MEDS ORDERED: AZITHROMYCIN 250 MG TABLET PO ONE (02:14)
== END 2017-08-25 03:35 | disposition home or self-care (01) ==
LOC: ER 21:00
DX: J02.9 Acute pharyngitis, unspecified (principal); J01.90 Acute sinusitis, unspecified; H60.502 Unspecified acute noninfective otitis externa, left ear; R06.2 Wheezing; Z90.49 Acquired absence of other specified parts of digestive tract; Z90.710 Acquired absence of both cervix and uterus
CPT/HCPCS: 99284; 87070; 87880; 71020; J7512; J3490 ×2; J7620

== ENCOUNTER 2017-08-31 10:33 | Observation (INO) | payer OTHER ==
[2017-08-31] MEDS ORDERED: IPRATROPIUM/ALBUTEROL 0.5-2.5 MG/3 ML AMPUL NEB ONE ×2 (10:57→12:29)
--- NOTE | 2017-08-31 11:02 | ER Document Report ---
ED Medical Screen (RME) - General Chief Complaint: Breathing Difficulty Stated Complaint: BREATHING DIFFICULTY Time Seen by Provider: 08/31/17 10:51 Notes: This 61-year-old female patient who has a diagnosis of asthma which seems to only be a problem with upper respiratory tract infections. She was seen here 1 week ago on 08/24/2017 with URI coughing wheezing. She was sent home on Zithromax, albuterol inhaler, and prednisone Dosepak. The patient denies ever noticing an improvement in her breathing even while she was on the higher dose of prednisone. 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 [facility], and was sent to the emergency room for continued wheezing. She did finish the prednisone today. On brief exam I really do not hear much if any wheezes. She has some coarse breath sounds consistent with bronchitis which would not be expected to resolve and only 1 week. We will try a DuoNeb in case there is some occult wheezing and see if it provides any subjective improvement in her breathing. I have greeted and performed a rapid initial assessment of this patient. A comprehensive ED assessment and evaluation of the patient, analysis of test results and completion of the medical decision making process will be conducted by additional ED providers. TRAVEL OUTSIDE OF THE [place] IN LAST 30 DAYS: No - Related Data Allergies/Adverse Reactions: No Known Allergies Allergy (Verified 08/31/17 10:42) Past Medical History - Social History Chew tobacco use (# tins/day): No Frequency of alcohol use: None Drug Abuse: None - Past Medical History Cardiac Medical History: Reports: Hx Hypertension Pulmonary Medical History: Reports: Hx Bronchitis Denies: Hx Tuberculosis Neurological Medical History: Reports: Hx Seizures Renal/ Medical History: Reports: Hx Ovarian Cysts. Denies: Hx Peritoneal Dialysis GI Medical History: Reports: Hx Gastroesophageal Reflux Disease, Hx Hiatal Hernia Musculoskeltal Medical History: Reports Hx Arthritis Traumatic Medical History: Reports: Hx Fractures - Collar bone as child Past Surgical History: Reports: Hx Cholecystectomy, Hx Hysterectomy. Denies: Hx Pacemaker - Immunizations Immunizations up to date: No Hx Diphtheria, Pertussis, Tetanus Vaccination: No Physical Exam - Vital signs Vitals: Temp Pulse BP Pulse Ox 97.9 F 86 140/90 H 98 08/31/17 10:40 08/31/17 10:40 08/31/17 10:40 08/31/17 10:40 Course - Vital Signs Vital signs: Temp Pulse Resp BP Pulse Ox 97.9 F 86 140/90 H 98 08/31/17 10:40 08/31/17 10:40 08/31/17 10:40 08/31/17 10:40
--- NOTE | 2017-08-31 11:36 | RADIOLOGY REPORT (SQ) ---
EXAM DESCRIPTION: CHEST PA/LAT COMPLETED DATE/TIME: 08/31/2017 11:20 am REASON FOR STUDY: Persistent asthmatic bronchitis COMPARISON: Chest films 08/25/2017, 03/01/2017, 12/21/2016 EXAM PARAMETERS: NUMBER OF VIEWS: two views TECHNIQUE: Digital Frontal and Lateral radiographic views of the chest acquired. RADIATION DOSE: NA LIMITATIONS: none FINDINGS: LUNGS AND PLEURA: No opacities, masses or pneumothorax. No pleural effusion. MEDIASTINUM AND HILAR STRUCTURES: No masses or contour abnormalities. HEART AND VASCULAR STRUCTURES: Heart normal size. No evidence for failure. BONES: No acute findings. HARDWARE: Clips right upper quadrant post cholecystectomy. OTHER: No other significant finding. IMPRESSION: NO SIGNIFICANT RADIOGRAPHIC FINDING IN THE CHEST. TECHNICAL DOCUMENTATION: JOB ID: [id number] [employer]- All Rights Reserved
--- NOTE | 2017-08-31 14:21 | ER Document Report ---
ED Respiratory Problem - General Mode of Arrival: Ambulatory Information source: Patient TRAVEL OUTSIDE OF THE [place] IN LAST 30 DAYS: No <JEWELL TOBIN - Last Filed: 08/31/17 15:30> <DILEEP PALOMARES - Last Filed: 08/31/17 16:30> - General Chief Complaint: Breathing Difficulty Stated Complaint: BREATHING DIFFICULTY Time Seen by Provider: 08/31/17 10:51 Notes: Patient is a 61-year-old female who presents to the emergency department today with complaints of a cough with associated shortness of breath and wheezing. Patient was seen 1 week ago by her PCP and was started on steroids and antibiotics for a persistent cough. Patient took her last dosage of steroids and antibiotics this morning and was seen by her PCP again this morning who sent her here. Patient states that the cough has persisted despite these medications, it has not gotten any worse but is also has not improved. Patient states she had similar symptoms like this last year and was admitted for them. Patient denies a history of asthma or COPD. (JEWELL TOBIN) - Related Data Allergies/Adverse Reactions: No Known Allergies Allergy (Verified 08/31/17 10:42) Home Medications: Current Home Medications Albuterol Sulfate [Ventolin Hfa 8 gm Mdi (1 Mdi/ER Disp)] 2 puff IH Q4 08/31/17 [History] Amlodipine Besylate [Norvasc 10 mg Tablet] 10 mg PO DAILY 08/31/17 [History] Carbamazepine [Tegretol Xr 200 mg Tab.sr] 200 mg PO QAM 08/31/17 [History] Carbamazepine [Tegretol Xr 200 mg Tab.sr] 300 mg PO QHS 08/31/17 [History] Ciprofloxacin HCl/Dexameth [Ciprodex Otic Suspension 7.5 ml Bottle] 4 drop BID 08/31/17 [History] Levetiracetam [Keppra 500 mg Tablet] 500 mg PO Q12 08/31/17 [History] Lisinopril/Hydrochlorothiazide [Lisinopril-Hctz 20-12.5 mg Tab] 1 each PO DAILY 08/31/17 [History] Omeprazole 40 mg PO BID 08/31/17 [History] Past Medical History - General Information source: Patient - Social History Smoking Status: Never Smoker Cigarette use (# per day): No Chew tobacco use (# tins/day): No Frequency of alcohol use: None Drug Abuse: None Lives with: Family Family History: Reviewed & Not Pertinent, DM, Hypertension [place] [id number]). He another Norvasc 10 of Norvasc 5 on the chart Patient has suicidal ideation: No Patient has homicidal ideation: No - Past Medical History Cardiac Medical History: Reports: Hx Hypertension Pulmonary Medical History: Reports: Hx Bronchitis Neurological Medical History: Reports: Hx Seizures Renal/ Medical History: Reports: Hx Ovarian Cysts GI Medical History: Reports: Hx Gastroesophageal Reflux Disease, Hx Hiatal Hernia Musculoskeltal Medical History: Reports Hx Arthritis Traumatic Medical History: Reports: Hx Fractures - Collar bone as child Past Surgical History: Reports: Hx Cholecystectomy, Hx Hysterectomy - Immunizations Immunizations up to date: No Hx Diphtheria, Pertussis, Tetanus Vaccination: No <JEWELL TOBIN - Last Filed: 08/31/17 15:30> Review of Systems - Review of Systems Constitutional: No symptoms reported EENT: No symptoms reported Cardiovascular: No symptoms reported Respiratory: See HPI, Cough, Short of breath, Wheezing Gastrointestinal: No symptoms reported Genitourinary: No symptoms reported Female Genitourinary: No symptoms reported Musculoskeletal: No symptoms reported Skin: No symptoms reported Hematologic/Lymphatic: No symptoms reported Neurological/Psychological: No symptoms reported -: Yes All other systems reviewed and negative <JEWELL TOBIN - Last Filed: 08/31/17 15:30> Physical Exam <JEWELL TOBIN - Last Filed: 08/31/17 15:30> <DILEEP PALOMARES - Last Filed: 08/31/17 16:30> - Vital signs Vitals: Temp Pulse BP Pulse Ox 97.9 F 86 140/90 H 98 08/31/17 10:40 08/31/17 10:40 08/31/17 10:40 08/31/17 10:40 - Notes Notes: Physical Exam: General: Alert, appears uncomfortable. HEENT: Normocephalic. Atraumatic. PERRL. Extraocular movements intact. Oropharynx clear. Neck: Supple. Non-tender. Respiratory: Expiratory wheezing bilaterally. Tachypnea with minimal exertion. Cardiovascular: Regular rate and rhythm. Abdominal: Normal Inspection. Non-tender. No distension. Normal Bowel Sounds. Back: Non-tender. No deformity or step off. Extremities: Moves all four extremities. Upper extremities: Normal inspection. Normal ROM. Lower extremities: Normal inspection. No edema. Normal ROM. Neurological: Normal cognition. AAOx4. Normal speech. Psychological: Normal affect. Normal Mood. Skin: Warm. Dry. Normal color. (JEWELL TOBIN) Course - Laboratory Result Diagrams: 08/31/17 14:50 08/31/17 14:50 <JEWELL TOBIN - Last Filed: 08/31/17 15:30> - Laboratory Result Diagrams: 08/31/17 14:50 08/31/17 14:50 <DILEEP PALOMARES - Last Filed: 08/31/17 16:30> - Re-evaluation Re-evalutation: 08/31/17 16:30 Patient with continued wheezing despite nebulizer treatment and steroids at home. Patient will be given magnesium. Patient becomes tachypneic with any movement. No evidence for PE on imaging however patient does appear to have probable trace pneumonia. Patient will be admitted for respiratory distress and continued wheezing especially in light of her lack of pulmonary or smoking history. Patient is agreeable to this plan. Stable time of admission. ( DILEEP PALOMARES) - Vital Signs Vital signs: Temp Pulse Resp BP Pulse Ox 97.9 F 86 140/90 H 98 08/31/17 10:40 08/31/17 10:40 08/31/17 10:40 08/31/17 10:40 - Laboratory Laboratory results interpreted by me: 08/31/17 08/31/17 08/31/17 14:50 14:50 14:50 RDW 14.2 H Seg Neuts % (Manual) 96 H Lymphocytes % (Manual) 3 L Monocytes % (Manual) 1 L Abs Lymphs (Manual) 0.2 L Potassium 3.4 L Glucose 191 H Lactic Acid 3.2 H Discharge <JEWELL TOBIN - Last Filed: 08/31/17 15:30> - Discharge Admitting Provider: Hospitalist - [facility] Admitted: Telemetry <DILEEP PALOMARES - Last Filed: 08/31/17 16:30> - Discharge Clinical Impression: Wheezing, Respiratory distress Pneumonia Qualifiers: Pneumonia type: due to unspecified organism Laterality: unspecified laterality Lung location: unspecified part of lung Qualified Code(s): J18.9 - Pneumonia, unspecified organism Condition: Stable Disposition: ADMITTED INPATIENT Scribe Attestation: 08/31/17 16:30 I personally performed the services described in the documentation, reviewed and edited the documentation which was dictated to the scribe in my presence, and it accurately records my words and actions. (DILEEP PALOMARES) Scribe Documentation - Scribe Written by Scribe:: Griselda Mora, 08/31/2017 1447 acting as scribe for :: Marcie <JEWELL TOBIN - Last Filed: 08/31/17 15:30>
[2017-08-31] MEDS ORDERED: ONDANSETRON HCL INJ/PF 4 MG/2 ML SDV IV PRN (15:21)
[2017-08-31] MEDS ORDERED: IPRATROPIUM/ALBUTEROL 0.5-2.5 MG/3 ML AMPUL NEB PRN (15:21)
[2017-08-31] MEDS ORDERED: ALBUTEROL SULFATE 0.083% NEB 2.5 MG/3 ML AMPUL NEB PRN (15:21)
[2017-08-31] MEDS ORDERED: ACETAMINOPHEN 325 MG TABLET PO PRN (15:21)
[2017-08-31] MEDS ORDERED: MAG HYDROX/AL HYDROX/SIMETH SUSP 30 ML UDCUP PO PRN (15:21)
[2017-08-31] MEDS: MAGNESIUM SULFATE/D5W 1 GM/100 ML RTUPB IV SCH ×2 (15:22→18:33)
--- NOTE | 2017-08-31 15:24 | RADIOLOGY REPORT (SQ) ---
EXAM DESCRIPTION: CTA CHEST COMPLETED DATE/TIME: 08/31/2017 3:05 pm REASON FOR STUDY: evaluate for PE/pneumonia COMPARISON: Chest films 08/31/2017, 08/25/2017 CT abdomen pelvis 06/22/2017 TECHNIQUE: CT scan of the chest performed using helical scanning technique with dynamic intravenous contrast injection. Images reviewed with lung, soft tissue and bone windows. Reconstructed coronal and sagittal MPR images reviewed. Additional 3 dimensional post-processing performed to develop Maximal Intensity Projection images (MO P). All images stored on PACS. All CT scanners at this facility use dose modulation, iterative reconstruction, and/or weight based d osing when appropriate to reduce radiation dose to as low as reasonably achievable (ALARA). [facility]: Dose Right [facility]: CareDose [facility]: Dose Right [facility]: Teradose 4D [facility]: Cranberry Chic CONTRAST TYPE AND DOSE: contrast/concentration: Isovue 370.00 mg/ml; Total Contrast Delivered: 75.0 ml; Total Saline Delivered: 70.1 ml Contrast bolus adequate for pulmonary arteries and aorta. RENAL FUNCTION: Deferred by the ER physician RADIATION DOSE: CT Rad equipment meets quality standard of care and radiation dose reduction techniq ues were employed. CTDIvol: 16.5 - 17.8 mGy. DLP: 678 mGy-cm. . LIMITATIONS: None. FINDINGS: LUNGS AND PLEURA: There is minimal patchy airspace disease in the right upper lobe on axia l image 46, and just above the minor fissure on axial image 56. There is patchy airspace disease in the right and left superior segment lower lobes. Benign calcified granuloma superior segment right lower lobe axial image 54. No pleural effusions. No pneumothorax. No worrisome pulmonary nodules. AORTA AND GREAT VESSELS: No aneurysm. Contrast bolus not optimized for the aorta. HEART: No pericardial effusion. No significant coronary artery calcifications. PULMONARY ARTERIES: No emboli visualized in the main pulmonary arteries or the segmental branches. HILAR AND MEDIASTINAL STRUCTURES: No identified masses or abnormal nodes. Moderate size retrocardiac hiatal hernia HARDWARE: None in the chest. 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 THYROID AND OTHER SOFT TISSUES: No masses. No adenopathy. BONES: No acute or significant finding. 3D MIPS: Confirm above findings. OTHER: No other significant finding. IMPRESSION: No CT angio evidence of acute pulmonary emboli or thoracic aortic dissection. Minimal bilateral airspace disease COMMENT: Quality ID # [id number]: Final reports with documentation of one or more dose reduction techniques (e.g., Automated exposure control, adjustment of the mA and/or kV according to patient size, use of iterative reconstruction technique) TECHNICAL DOCUMENTATION: JOB ID: [id number] [employer]- All Rights Reserved
[2017-08-31 15:31] LABS: HEMATOCRIT 36.4 % (36.0-47.0); HEMOGLOBIN 12.5 g/dL (12.0-15.5); HGB HCT DIFFERENCE 1.1; MEAN CORPUSCULAR HEMOGLOBIN 29.4 pg (27.0-33.4); MEAN CORPUSCULAR HGB CONC 34.3 g/dL (32.0-36.0); MEAN CORPUSCULAR VOLUME 86 fl (80-97); RED BLOOD COUNT 4.26 10^6/uL (3.72-5.28); RED CELL DISTRIBUTION WIDTH 14.2 % (11.5-14.0); WHITE BLOOD COUNT 7.4 10^3/uL (4.0-10.5)
[2017-08-31 15:36] LABS: ALANINE AMINOTRANSFERASE 43 U/L (9-52); ALBUMIN 4.3 g/dL (3.5-5.0); ALKALINE PHOSPHATASE 122 U/L (38-126); ANION GAP 16 (5-19); ASPARTATE AMINO TRANSFERASE 28 U/L (14-36); BILIRUBIN,DIRECT 0.3 mg/dL (0.0-0.4); BILIRUBIN,TOTAL 0.3 mg/dL (0.2-1.3); BLOOD UREA NITROGEN 16 mg/dL (7-20); CALCIUM 9.6 mg/dL (8.4-10.2); CARBON DIOXIDE 25 mmol/L (22-30); CHLORIDE 100 mmol/L (98-107); CREATININE RESULT 0.86 mg/dL (0.52-1.25); GLUCOSE 191 mg/dL (75-110); POTASSIUM 3.4 mmol/L (3.6-5.0); SODIUM 140.9 mmol/L (137-145); TOTAL PROTEIN 7.7 g/dL (6.3-8.2)
[2017-08-31] MEDS ORDERED: AZITHROMYCIN INJ 500 MG VIAL IV ONE (15:38)
[2017-08-31] MEDS ORDERED: CEFTRIAXONE 1 GM/D5W RTU 1 GM/50 ML RTUPB IV ONE (15:38)
[2017-08-31 15:53] LABS: BASOPHILS % (MANUAL) 0 % (0-2); EOSINOPHILS % (MANUAL) 0 % (0-6); LYMPHOCYTES % (MANUAL) 3 % (13-45); TOTAL CELLS COUNTED 100
[2017-08-31 15:54] LABS: RBC MORPHOLOGY COMMENT NORMO-CYTIC/CHROMIC; TOXIC GRANULATION 2+
--- NOTE | 2017-08-31 16:01 | PDOC H&P ---
History of Present Illness Admission Date/PCP: EDGAR MALDONADO Patient complains of: Shortness of breath, fevers History of Present Illness: CAMILLA THOMAS is a 61 year old female with a past medical history significant for seizures, hypertension, and GERD who presented to the emergency department today from her primary care provider's office with a complaint of dyspnea that did not improve following a nebulizer treatment provided in the clinic today. The patient was actually seen in our emergency department earlier last week and provided a Z-Mark and steroid taper for bronchitis. The patient reports that she completed all of her antibiotics and finish the taper yesterday without significant improvement in her symptoms and at her follow-up with the PCP today was instructed to come to the emergency department for further evaluation. Initial evaluation in the emergency department is essentially unremarkable. A CTA of the chest was negative for PE but did demonstrate evidence of bilateral airspace disease. She is referred to the hospitalist service for observational admission of her respiratory distress. Past Medical History Cardiac Medical History: Reports: Hypertension Denies: Congestive Heart Failure, Coronary Artery Disease, DVT, Myocardial Infarction, Hyperlipidema, Heart Murmur Pulmonary Medical History: Reports: Bronchitis Denies: Asthma, Chronic Obstructive Pulmonary Disease (COPD), Tuberculosis EENT Medical History: Reports: None Neurological Medical History: Reports: Seizures Denies: Hemorrhagic CVA, Ischemic CVA, Migraine Endocrine Medical History: Reports: None Renal/ Medical History: Reports: None Malignancy Medical History: Reports: None GI Medical History: Reports: Gastroesophageal Reflux Disease, Hiatal Hernia Denies: Diverticulitis, Peptic Ulcer Disease Musculoskeltal Medical History: Reports: Arthritis Skin Medical History: Reports: None Psychiatric Medical History: Reports: None Traumatic Medical History: Reports: None Hematology: Reports: None Infectious Medical History: Reports: None Past Surgical History Past Surgical History: Reports: Cholecystectomy, Hysterectomy Denies: Pacemaker Social History Information Source: Patient Lives with: Family, Spouse/Significant other Smoking Status: Never Smoker Frequency of Alcohol Use: None Hx Recreational Drug Use: No Hx Prescription Drug Abuse: No - Advance Directive Resuscitation Status: Full Code Family History Family History: Reviewed & Not Pertinent, CVA, DM, [place]ension [place] [id number] He another Norvasc 10 of Norvasc 5 on the chart, Other - Father with seizure disorder Parental Family History Reviewed: Yes Children Family History Reviewed: Yes Sibling(s) Family History Reviewed.: Yes Medication/Allergy Home Medications: Albuterol Sulfate [Ventolin Hfa 8 gm Mdi (1 Mdi/ER Disp)] 2 puff IH Q4 08/31/17 Amlodipine Besylate [Norvasc 10 mg Tablet] 10 mg PO DAILY 08/31/17 Carbamazepine [Tegretol Xr 200 mg Tab.sr] 200 mg PO QAM 08/31/17 Carbamazepine [Tegretol Xr 200 mg Tab.sr] 300 mg PO QHS 08/31/17 Ciprofloxacin HCl/Dexameth [Ciprodex Otic Suspension 7.5 ml Bottle] 4 drop BID 08/31/17 Levetiracetam [Keppra 500 mg Tablet] 500 mg PO Q12 08/31/17 Lisinopril/Hydrochlorothiazide [Lisinopril-Hctz 20-12.5 mg Tab] 1 each PO DAILY 08/31/17 Omeprazole 40 mg PO BID 08/31/17 Allergies/Adverse Reactions: No Known Allergies Allergy (Verified 08/31/17 10:42) Review of Systems Constitutional: PRESENT: fatigue, fever(s). ABSENT: anorexia, chills, headache( s), night sweats Eyes: ABSENT: visual disturbances Ears: ABSENT: hearing changes Nose, Mouth, and Throat: PRESENT: other - Congestion, rhinorrhea Cardiovascular: ABSENT: chest pain, dyspnea on exertion, edema, orthropnea, palpitations Respiratory: PRESENT: cough, dyspnea. ABSENT: hemoptysis Gastrointestinal: ABSENT: abdominal pain, constipation, diarrhea, hematemesis, hematochezia, nausea, vomiting Genitourinary: ABSENT: dysuria, hematuria Musculoskeletal: ABSENT: joint swelling Integumentary: ABSENT: rash, wounds Neurological: ABSENT: abnormal gait, abnormal speech, confusion, dizziness, focal weakness, syncope Psychiatric: ABSENT: anxiety, depression, homidical ideation, suicidal ideation Endocrine: ABSENT: cold intolerance, heat intolerance, polydipsia, polyuria Hematologic/Lymphatic: ABSENT: easy bleeding, easy bruising Physical Exam Vital Signs: Temp Pulse Resp BP Pulse Ox 97.9 F 86 140/90 H 98 08/31/17 10:40 08/31/17 10:40 08/31/17 10:40 08/31/17 10:40 Intake & Output 08/30/17 08/31/17 09/01/17 06:59 06:59 06:59 Weight 87.6 kg General appearance: PRESENT: no acute distress, obese, well-developed, well- nourished Head exam: PRESENT: atraumatic, normocephalic Eye exam: PRESENT: conjunctiva pink, EOMI, PERRLA. ABSENT: scleral icterus Ear exam: PRESENT: normal external ear exam Mouth exam: PRESENT: moist, tongue midline Neck exam: ABSENT: carotid bruit, JVD, lymphadenopathy, thyromegaly Respiratory exam: PRESENT: clear to auscultation rohini, decreased breath sounds - Bibasilar, prolonged expiratory phas, symmetrical, unlabored. ABSENT: rales, rhonchi, wheezes Cardiovascular exam: PRESENT: RRR, tachycardia. ABSENT: diastolic murmur, rubs , systolic murmur Pulses: PRESENT: normal dorsalis pedis pul Vascular exam: PRESENT: normal capillary refill GI/Abdominal exam: PRESENT: normal bowel sounds, soft. ABSENT: distended, guarding, mass, organolmegaly, rebound, tenderness Rectal exam: PRESENT: deferred Extremities exam: PRESENT: full ROM. ABSENT: calf tenderness, clubbing, pedal edema Neurological exam: PRESENT: alert, awake, oriented to person, oriented to place , oriented to time, oriented to situation, CN II-XII grossly intact. ABSENT: motor sensory deficit Psychiatric exam: PRESENT: appropriate affect, normal mood. ABSENT: homicidal ideation, suicidal ideation Skin exam: PRESENT: dry, intact, warm. ABSENT: cyanosis, rash Results Impressions: Chest X-Ray 08/31/17 10:57 IMPRESSION: NO SIGNIFICANT RADIOGRAPHIC FINDING IN THE CHEST. Chest/Abdomen CTA 08/31/17 14:49 IMPRESSION: No CT angio evidence of acute pulmonary emboli or thoracic aortic dissection. Minimal bilateral airspace disease Assessment & Plan - Diagnosis (1) Acute asthmatic bronchitis Is this a current diagnosis for this admission?: Yes Plan: The patient presents to the emergency department with a one-week history of dyspnea and slightly productive cough with subjective fevers noted at night. She was seen in our emergency department early week and provided a Z-Mark which she completed and a steroid taper. She completed her last dose of the steroids today and followed up in her primary care provider who noted continued wheezing and hypoxia on room air per patient. The patient received 1 DuoNeb treatment without relief of her dyspnea and was referred to the emergency department. At time of evaluation, the patient had just returned from her CTA. She was found resting comfortably in bed on room air and fully conversational without difficulty. She has been provided IV azithromycin and Rocephin by the emergency department. The patient is currently receiving IV magnesium sulfate x 2 g. She will be admitted to telemetry observation overnight. Will provide her IV Solu-Medrol, scheduled Duo-nebs, albuterol nebulized treatments as needed, and Mucinex. (2) Seizure disorder Is this a current diagnosis for this admission?: No Plan: We will continue patient's home medications: Tegretol and Keppra twice daily Patient states that her last seizure was several years ago. (3) Hypertension Is this a current diagnosis for this admission?: No Plan: Continue patient's home medications; Norvasc, lisinopril/HCTZ. (4) GERD (gastroesophageal reflux disease) Is this a current diagnosis for this admission?: No Plan: We will provide PPI therapy.
[2017-08-31] MEDS ORDERED: POTASSIUM CHLORIDE 10 MEQ TABLET.SA PO ONE (17:00)
[2017-08-31] MEDS ORDERED: ENOXAPARIN SODIUM INJ 40 MG/0.4 ML DISP.SYRIN SUBCUT ONE (17:00)
[2017-08-31] MEDS ORDERED: INFLUENZA ADLT QUAD (36MOS+) 2017-18 VAC 0.5 ML SYR IM PRN (17:43)
[2017-08-31] MEDS: GUAIFENESIN 600 MG TABLET.SA PO SCH (18:40)
[2017-08-31] MEDS: METHYLPREDNISOLONE INJ 40 MG/1 ML SDV IV SCH (18:40)
[2017-08-31] MEDS: LEVETIRACETAM 500 MG TABLET PO SCH (21:44)
[2017-08-31] MEDS: FAMOTIDINE 20 MG TABLET PO SCH (21:44)
[2017-08-31] MEDS ORDERED: CARBAMAZEPINE 200 MG TAB.SR.12H PO SCH (22:00)
[2017-08-31] MEDS ORDERED: CARBAMAZEPINE 100 MG TAB.SR.12H PO SCH (22:00)
[2017-09-01] MEDS: METHYLPREDNISOLONE INJ 40 MG/1 ML SDV IV SCH ×2 (02:34→09:49)
[2017-09-01 05:43] LABS: HEMATOCRIT 34.6 % (36.0-47.0); HGB HCT DIFFERENCE 1.4; MEAN CORPUSCULAR HEMOGLOBIN 29.6 pg (27.0-33.4); MEAN CORPUSCULAR HGB CONC 34.8 g/dL (32.0-36.0); MEAN CORPUSCULAR VOLUME 85 fl (80-97); RED BLOOD COUNT 4.07 10^6/uL (3.72-5.28); RED CELL DISTRIBUTION WIDTH 14.3 % (11.5-14.0); WHITE BLOOD COUNT 11.7 10^3/uL (4.0-10.5)
[2017-09-01 06:06] LABS: ANION GAP 13 (5-19); BLOOD UREA NITROGEN 20 mg/dL (7-20); CALCIUM 9.4 mg/dL (8.4-10.2); CARBON DIOXIDE 23 mmol/L (22-30); CHLORIDE 105 mmol/L (98-107); CREATININE RESULT 0.77 mg/dL (0.52-1.25); GLUCOSE 106 mg/dL (75-110); SODIUM 141.2 mmol/L (137-145)
[2017-09-01 06:13] LABS: POTASSIUM 4.5 mmol/L (3.6-5.0)
[2017-09-01] MEDS ORDERED: CARBAMAZEPINE 200 MG TAB.SR.12H PO SCH (08:00)
[2017-09-01] MEDS: GUAIFENESIN 600 MG TABLET.SA PO SCH (09:50)
[2017-09-01] MEDS: LEVETIRACETAM 500 MG TABLET PO SCH (09:50)
[2017-09-01] MEDS: FAMOTIDINE 20 MG TABLET PO SCH (09:50)
[2017-09-01] MEDS ORDERED: AMLODIPINE BESYLATE 10 MG TABLET PO SCH (10:00)
[2017-09-01] MEDS ORDERED: (PENDING PHARMACY ID) (Lisinopril/Hydrochlorothiazide [Lisinopril-Hctz 20-12.5 Mg Tab] 1 E PO SCH (10:00)
[2017-09-01] MEDS ORDERED: ENOXAPARIN SODIUM INJ 40 MG/0.4 ML DISP.SYRIN SUBCUT SCH (10:00)
[2017-09-01] MEDS ORDERED: HYDROCHLOROTHIAZIDE 12.5 MG CAPSULE PO SCH (10:00)
[2017-09-01] MEDS ORDERED: LISINOPRIL 10 MG TABLET PO SCH (10:00)
[2017-09-01] MEDS ORDERED: DOCUSATE SODIUM 100 MG CAPSULE PO SCH (10:00)
[2017-09-01 12:02] VITALS: BP 140/74
--- NOTE | 2017-09-01 15:49 | DISCHARGE SUMMARY E ---
Discharge Summary NAME: CAMILLA THOMAS : 1955 AGE: 61Y ADMITTED: 08/31/2017 DISCHARGED: 09/01/2017 CODE STATUS: FULL CODE. PRIMARY CARE PROVIDER: [facility] DISCHARGE DIAGNOSES: 1. Acute asthmatic bronchitis. 2. Seizure disorder. 3. Hypertension. 4. GERD. 5. Splenic aneurysm which appears stable. DISCHARGE MEDICATIONS: 1. Prednisone 20 mg taper. 2. Albuterol nebs 2.5 mg nebs q.2 hours p.r.n. 3. Omeprazole 40 mg p.o. b.i.d. 4. Lisinopril/hydrochlorothiazide 20/12.5 one tablet p.o. daily. 5. Keppra 500 mg p.o. q.12 hours. 6. Ciprodex optic solution 4 drops as directed. 7. Tegretol XL 300 mg p.o. at hour of sleep. 8. Tegretol 600 mg p.o. every a.m. 9. Norvasc 10 mg p.o. daily. 10. Ventolin HFA 2 puffs inhalation q.4 hours p.r.n. DIET: As tolerated. ACTIVITY: As tolerated. DIAGNOSTICS: Lab values are as follows: Hematology obtained on 09/01/2017: WBCs are 11.7, hemoglobin is 12.0, hematocrit is 34.6, platelet count is 231,000. Chemistry obtained on 09/01/2017: Sodium is 141, potassium 4.5, chloride is 105, carbon dioxide 23, BUN 20, creatinine 0.77, glucose 106, calcium is 9.4, bilirubin 0.3, AST 28, ALT is 43, alk phos 122, total protein 7.7, albumin 4.3. Microbiology: Blood cultures obtained on 08/31/2017 are pending. CTA of the abdomen and chest obtained on 08/31/2017 reveals no CTA evidence of acute pulmonary emboli or dissection. Splenic aneurysm which is stable. Chest x-ray obtained on 08/31/2017: No acute radiographic finding of the chest. PHYSICAL EXAMINATION: GENERAL: On examination, the patient is a well-developed, well-nourished, 61-year-old female who is awake, alert, and oriented to person, place, time, and situation. She is verbal, conversational, and does not appear to be in any acute distress. VITAL SIGNS: Temperature 97.4, pulse 67, respirations 16, blood pressure 140/74, oxygen saturation is 98% on 2 L nasal cannula. SKIN: Warm and dry. No rash. She is not diaphoretic. HEENT: Pupils equal, round, reactive to light and accommodation. Conjunctivae are pink. There is no JVP. CARDIOVASCULAR: Heart is regular with no murmur or rub. CHEST: Patient does have some expiratory wheezes noted in upper lung field. ABDOMEN: Soft, nontender, nondistended. BACK: No CVA tenderness or sacral edema. EXTREMITIES: No clubbing, cyanosis, or edema. PSYCHIATRIC: Appropriate affect. Pleasant mood. HISTORY OF PRESENT ILLNESS: The patient is a 61-year-old female with a past medical history of seizures and GERD. The patient presented to the emergency department from her primary care providers office with the chief complaint of shortness of breath. The patient stated that while at her primary care providers office, she received a nebulizer at the clinic and was also initially started on Z-Mark but with no improvement of symptoms. However, upon presentation, the patient was unable to fully complete sentences and therefore she was referred to the hospitalist for observation and management. HOSPITAL COURSE: Patient was observed in continuous telemetry unit. The patient was started on steroids and scheduled nebulizers. The patient had drastic improvement of symptoms with simply steroids and therefore the patient feels ready for discharge. The patient was transitioned off nasal cannula, was able to ambulate without issue. The patient is able to fully complete sentences. There has had no reported episodes of nausea, vomiting, diarrhea, dizziness, or chest pain. No fever or chills, and the patient is eager for discharge. DISCHARGE PLANNING: The patient was advised to followup with her primary care provider within 1 week for hospital followup. The patient will need followup of splenic aneurysm at appropriate interval. Time spent on this discharge including assessment, plan, physical examination, patient education, and review of records is 25 minutes. DICTATING PHYSICIAN: JAYANT CRABTREE NP [id number] PHY#: [id number] ID: [id number] JOB#: [id number] ACCT: [id number] cc:JAQUI SHERIFF M.D., MICHAEL NP >
== END 2017-09-01 15:48 | disposition home or self-care (01) ==
LOC: ER 10:33 → EH 16:13 → 4S 17:17
PROVIDERS: ADMIT Hospitalist; ATTEND Hospitalist
PROC: 3E0234Z Introduction of Serum, Toxoid and Vaccine into Muscle, Percutaneous Approach (ICD-10-PCS; principal; 2017-08-31)
PROC: 3E0F7GC Introduction of Other Therapeutic Substance into Respiratory Tract, Via Natural or Artificial Opening (ICD-10-PCS; 2017-09-01)
DX: J45.909 Unspecified asthma, uncomplicated (principal); G40.909 Epilepsy, unspecified, not intractable, without status epilepticus; I10 Essential (primary) hypertension; K21.9 Gastro-esophageal reflux disease without esophagitis; I72.8 Aneurysm of other specified arteries; R09.02 Hypoxemia; R06.82 Tachypnea, not elsewhere classified; Z23 Encounter for immunization; Z90.49 Acquired absence of other specified parts of digestive tract; Z90.710 Acquired absence of both cervix and uterus; Z82.49 Family history of ischemic heart disease and other diseases of the circulatory system; Z79.899 Other long term (current) drug therapy
CPT/HCPCS: 94640 ×3; 99285; 96365; 36415 ×2; 87040; 85025; 85027; 80048; 80053; 83605; 71020; 71275; 90686; J3490 ×4; J2920 ×2; J1650 ×2; J3475; J0696; J7620 ×2

== ENCOUNTER 2017-11-14 21:29 | Emergency (ER) | payer OTHER ==
--- NOTE | 2017-11-15 00:02 | ER Document Report ---
ED Flu Like - General Chief Complaint: Flu Symptoms Stated Complaint: FLU LIKE SYMPTOMS Time Seen by Provider: 11/14/17 23:37 Mode of Arrival: Ambulatory Information source: Patient Notes: 62-year-old female presents to ED for cough cold congestion fever sore throat 2 -3 weeks. She states she is not getting any better. States she has been seen at [facility]. She was in no acute distress with a temperature of 98.0 when she was seen in the emergency room. Respirations regular unlabored able to speak in full sentences able to walk with the even steady gait. TRAVEL OUTSIDE OF THE [place] IN LAST 30 DAYS: No - HPI Onset: Other - 2-3 weeks Timing/Duration: Persistent Quality of pain: Achy Severity: Mild Pain Level: 2 Associated symptoms: Body/muscle aches, Productive cough, Fever, Rhinnorhea, Sinus pain/drainage, Sore throat Similar symptoms previously: Yes Recently seen / treated by doctor: Yes - Related Data Allergies/Adverse Reactions: No Known Allergies Allergy (Verified 08/31/17 10:42) Past Medical History - General Information source: Patient - Social History Smoking Status: Former Smoker Cigarette use (# per day): No Chew tobacco use (# tins/day): No Smoking Education Provided: No Frequency of alcohol use: None Drug Abuse: None Occupation: Retired Lives with: Family Family History: CVA, DM, [place]ension [place] [id number]). He another Norvasc 10 of Norvasc 5 on the chart, Other - Father with seizure disorder. denies: Arthritis, CAD, COPD, Hyperlipidemia, Malignancy, Thyroid Disfunction Patient has suicidal ideation: No Patient has homicidal ideation: No - Past Medical History Cardiac Medical History: Reports: Hx Hypertension Pulmonary Medical History: Reports: Hx Bronchitis, Hx Pneumonia EENT Medical History: Reports: None Neurological Medical History: Reports: Hx Migraine, Hx Seizures Endocrine Medical History: Reports: None Renal/ Medical History: Reports: Hx Ovarian Cysts Malignancy Medical History: Reports: None GI Medical History: Reports: Hx Gastroesophageal Reflux Disease, Hx Hiatal Hernia, Hx Colonoscopy - Was not completed due to her waking up and having discomfort, Hx Endoscopy Musculoskeltal Medical History: Reports Hx Arthritis, Reports Hx Musculoskeletal Trauma - Fractured clavicle Skin Medical History: Reports None Psychiatric Medical History: Reports: None Traumatic Medical History: Reports: Hx Fractures - Clavicle as a child Infectious Medical History: Reports: None Past Surgical History: Reports: Hx Cholecystectomy, Hx Hysterectomy, Hx Nose Surgery - Immunizations Immunizations up to date: No Hx Diphtheria, Pertussis, Tetanus Vaccination: No Review of Systems - Review of Systems Notes: Constitutional: [PRESENT: as per HPI. ABSENT: headache(s), weight gain, weight loss] complains of fever and chills Eyes: [ABSENT: visual disturbances] Ears: [ABSENT: hearing changes] Nasopharyngeal: Runny nose sore throat postnasal drip Cardiovascular: [ABSENT: chest pain, dyspnea on exertion, edema, orthropnea, palpitations] Respiratory: Cough congestion with dark green sputum Gastrointestinal: [ABSENT: abdominal pain, constipation, diarrhea, hematemesis, hematochezia, nausea, vomiting] Genitourinary: [ABSENT: dysuria, hematuria] Musculoskeletal: [ABSENT: joint swelling] body aches Integumentary: [ABSENT: rash, wounds] Neurological: [ABSENT: abnormal gait, abnormal speech, confusion, dizziness, focal weakness, syncope] Psychiatric: [ABSENT: anxiety, depression, homicidal ideation, suicidal ideation ] Endocrine: [ABSENT: cold intolerance, heat intolerance, menstrual abnormalities , polydipsia, polyuria] Hematologic/Lymphatic: [ABSENT: easy bleeding, easy bruising, lymphadenopathy] Physical Exam - Vital signs Vitals: Temp Pulse BP Pulse Ox 98.0 F 76 139/77 H 97 11/14/17 21:42 11/14/17 21:42 11/14/17 21:42 11/14/17 21:42 - Notes Notes: PHYSICAL EXAMINATION: GENERAL: Well-appearing, well-nourished and in no acute distress. HEAD: Atraumatic, normocephalic. EYES: Pupils equal round and reactive to light, extraocular movements intact, conjunctiva are normal. ENT: Red swollen nasal turbinates with green nasal drainage, postnasal drip with erythematous oropharynx without exudates. Moist mucous membranes. NECK: Normal range of motion, supple without lymphadenopathy LUNGS: Breath sounds clear to auscultation bilaterally and equal. No wheezes rales or rhonchi. HEART: Regular rate and rhythm without murmurs ABDOMEN: Soft, nontender, nondistended abdomen. No guarding, no rebound. No masses appreciated. Female : deferred Musculoskeletal: Normal range of motion, no pitting or edema. No cyanosis. NEUROLOGICAL: Cranial nerves grossly intact. Normal speech, normal gait. Normal sensory, motor exams PSYCH: Normal mood, normal affect. SKIN: Warm, Dry, normal turgor, no rashes or lesions noted. Course - Re-evaluation Re-evalutation: 11/15/17 00:16 Discussed medications patient can and cannot take with her high blood pressure for her cough and cold symptoms. Patient verbalized understanding of instruction. She states that her doctor says she cannot take Tylenol because of taking Keppra but she can take ibuprofen. Patient was discharged home - Vital Signs Vital signs: Temp Pulse Resp BP Pulse Ox 98.0 F 74 20 116/74 98 11/14/17 21:42 11/15/17 00:11 11/15/17 00:11 11/15/17 00:11 11/15/17 00:11 - Diagnostic Test Radiology reviewed: Image reviewed, Reports reviewed Discharge - Discharge Clinical Impression: URI (upper respiratory infection) Qualifiers: URI type: unspecified URI Qualified Code(s): J06.9 - Acute upper respiratory infection, unspecified Condition: Stable Disposition: HOME, SELF-CARE Additional Instructions: UPPER RESPIRATORY ILLNESS: You have a viral infection of the respiratory passages -- a "cold." This common infection causes nasal congestion, drainage, and often sore throat and cough. It is highly contagious. The disease usually lasts about 10 to 14 days. There is no "cure" for the viral infection -- it must run its course. If there is a complication, such as bacterial infection in the nose, sinuses, middle ear, or bronchial tubes, antibiotics may be required. The antibiotics won't affect the virus. Drink plenty of fluids. A humidifier may help. An expectorant medication or decongestant may make you more comfortable. Use acetaminophen or ibuprofen for fever or aches. See the doctor if fever persists over two days, if there is any significant worsening of your symptoms, or if you simply fail to improve as expected. Please try Flonase for your nasal drainage causing you to cough. A chest x-ray is negative there is no signs or symptoms of pneumonia you did not have a fever while in the emergency room. Use Tylenol for your fever when you do have a fever. Due to your high blood pressure you need Coricidin HB for your cold symptoms. COUGH-SUPPRESSANT & EXPECTORANT MEDICATION: You are to use a cough medication as needed for relief of symptoms. This medicine is a combination of an expectorant (to make the mucous thinner and more easily "coughed up") and a cough suppressant (to reduce the frequency of coughing). The cough-suppressant medicine is related to narcotics. You may experience mild nausea and sleepiness. Some patients who are very sensitive to narcotics may have stomach pain from this medicine. Taking the medicine with food reduces these side effects. Do not drive or work with machinery until you know how this medicine affects you. The expectorant should have no side effects. Iodine-containing expectorants (such as organidin) should not be taken by persons with active thyroid disease unless approved by your doctor. Call the doctor if you develop shortness of breath, hives, rash, itching, lightheadedness, or severe nausea and vomiting. USE OF ACETAMINOPHEN (Tylenol): Acetaminophen may be taken for pain relief or fever control. It's much safer than aspirin, offering a wider range of "safe" dosages. It is safe during . Some brand names are Tylenol, Panadol, Datril, Anacin 3, Tempra, and Liquiprin. Acetaminophen can be repeated every four hours. The following are maximum recommended dosages: >89 pounds or adults 650 mg to 900 mg Acetaminophen can be repeated every four hours. Maximum dose not to exceed 4000 mg a day. FOLLOW-UP CARE: If you have been referred to a physician for follow-up care, call the physician s office for an appointment as you were instructed or within the next two days. If you experience worsening or a significant change in your symptoms, notify the physician immediately or return to the Emergency Department at any time for re-evaluation. Forms: Elevated Blood Pressure Referrals: BROOK KITCHEN PA [Primary Care Provider] - 11/16/17
--- NOTE | 2017-11-15 00:04 | RADIOLOGY REPORT (SQ) ---
EXAM DESCRIPTION: CHEST PA/LAT COMPLETED DATE/TIME: 11/14/2017 11:51 pm REASON FOR STUDY: cough fever COMPARISON: 08/31/2017 EXAM PARAMETERS: NUMBER OF VIEWS: two views TECHNIQUE: Digital Frontal and Lateral radiographic views of the chest acquired. RADIATION DOSE: NA LIMITATIONS: none FINDINGS: LUNGS AND PLEURA: No acute opacities, masses or pneumothorax. No pleural effusion. MEDIASTINUM AND HILAR STRUCTURES: Stable. HEART AND VASCULAR STRUCTURES: Heart normal size. No evidence for failure. BONES: No acute findings. HARDWARE: None in the chest. OTHER: No other significant finding. IMPRESSION: No acute findings. TECHNICAL DOCUMENTATION: JOB ID: [id number] [id number] 2010 [employer]- All Rights Reserved Reading location - IP/workstation name: [email or web address]
[2017-11-15 00:12] VITALS: BP 116/74
== END 2017-11-15 00:20 | disposition home or self-care (01) ==
LOC: ER 21:29
DX: J06.9 Acute upper respiratory infection, unspecified (principal); J02.9 Acute pharyngitis, unspecified; M79.1 Myalgia; I10 Essential (primary) hypertension; Z90.49 Acquired absence of other specified parts of digestive tract; Z90.710 Acquired absence of both cervix and uterus
CPT/HCPCS: 71046; 99283

== ENCOUNTER → 2018-02-25 | Outpatient (CLI) | payer OTHER ==
[2018-02-25 09:05] LABS: ABSOLUTE BASOPHILS # (AUTO) 0.1 10^3/uL (0.0-0.2); ABSOLUTE EOSINOPHILS # (AUTO) 0.1 10^3/uL (0.0-0.6); ABSOLUTE LYMPHOCYTES (AUTO) 1.7 10^3/uL (0.5-4.7); ABSOLUTE MONOCYTES (AUTO) 0.6 10^3/uL (0.1-1.4); ABSOLUTE NEUT (AUTO) 4.5 10^3/uL (1.7-8.2); BASOPHILS % (AUTO) 0.7 % (0-2); HEMATOCRIT 35.1 % (36.0-47.0); HEMOGLOBIN 12.1 g/dL (12.0-15.5); LYMPHOCYTES % (AUTO) 24.1 % (13-45); MEAN CORPUSCULAR HEMOGLOBIN 28.9 pg (27.0-33.4); MEAN CORPUSCULAR HGB CONC 34.3 g/dL (32.0-36.0); MEAN CORPUSCULAR VOLUME 84 fl (80-97); MONOCYTES % (AUTO) 8.7 % (3-13); PLATELET COUNT 214 10^3/uL (150-450); RED BLOOD COUNT 4.18 10^6/uL (3.72-5.28); RED CELL DISTRIBUTION WIDTH 14.4 % (11.5-14.0); SEGMENTED NEUTROPHILS % (AUTO) 65.5 % (42-78); TOTAL CELLS COUNTED % (AUTO) 100 %; WHITE BLOOD COUNT 6.8 10^3/uL (4.0-10.5)
[2018-02-25 09:24] LABS: ALANINE AMINOTRANSFERASE 13 U/L (9-52); ALBUMIN 3.9 g/dL (3.5-5.0); ALKALINE PHOSPHATASE 121 U/L (38-126); ANION GAP 13 (5-19); ASPARTATE AMINO TRANSFERASE 19 U/L (14-36); BILIRUBIN,DIRECT 0.3 mg/dL (0.0-0.4); BILIRUBIN,TOTAL 0.3 mg/dL (0.2-1.3); BLOOD UREA NITROGEN 18 mg/dL (7-20); CALCIUM 9.7 mg/dL (8.4-10.2); CARBON DIOXIDE 24 mmol/L (22-30); CHLORIDE 107 mmol/L (98-107); CHOLESTEROL 166.06 mg/dL (0-200); GLUCOSE 88 mg/dL (75-110); POTASSIUM 4.5 mmol/L (3.6-5.0); SODIUM 143.6 mmol/L (137-145); TOTAL PROTEIN 7.5 g/dL (6.3-8.2); TRIGLYCERIDES 63 mg/dL (<150)
[2018-02-25 09:35] LABS: DIRECT LDL 81 mg/dL (<100)
== END ==
LOC: OD 08:10
DX: G40.909 Epilepsy, unspecified, not intractable, without status epilepticus (principal)
CPT/HCPCS: 36415; 80053; 80061; 80156; 80177; 83036; 84443; 85025

== ENCOUNTER → 2018-03-22 | Outpatient (CLI) | payer OTHER ==
--- NOTE | 2018-03-29 17:14 | WOMENS IMAGING REPORT ---
EXAM DESCRIPTION: PINK [place]ARRIOR BILATERAL SCREEN COMPLETED DATE/TIME: 03/22/2018 11:32 am REASON FOR STUDY: SCREENING MAMMMO Z12.31 ENCNTR SCREEN MAMMOGRAM FOR MALIGNANT NEOPLASM OF ISHAAN COMPARISON: None. TECHNIQUE: Standard craniocaudal and mediolateral oblique views of each breast recorded using digita l acquisition. LIMITATIONS: None. FINDINGS: No masses, calcifications or architectural distortion. No areas of suspicion. Read with the assistance of CAD. .[facility] - R2 Cenova Version 1.3 .[facility] - R2 Cenova Version 1.3 .[facility] - R2 Cenova Version 2.4 .[facility] [place] - R2 Cenova Version 2.4 .[facility] - R2 Crna Version 9.2 IMPRESSION: NORMAL MAMMOGRAM. BIRADS 1. BREAST DENSITY: b. There are scattered areas of fibroglandular density. BIRAD: 1 NEGATIVE RECOMMENDATION: ROUTINE SCREENING COMMENT: The patient has been notified of the results by letter per MQSA requirements. Additional no tification policies are in place for contacting patient with suspicious or incomplete findings. Quality ID #[id number]: The [employer] recommends an annual screening mammogram for women aged 40 years or over. This facility utilizes a reminder system to ensure that all patients receive reminder letters, and/or direct phone calls for appointments. This includes reminders for routine scr eening mammograms, diagnostic mammograms, or other Breast Imaging Interventions when appropriate. Th is patient will be placed in the appropriate reminder system. The [employer] (ACR) has developed recommendations for screening MRI of the breast s in certain patient populations, to be used in conjunction with mammography. Breast MRI surveillanc e may be appropriate for women with more than 20% lifetime risk of developing breast cancer as deter mined by genetic testing, significant family history of the disease, or history of mantle radiation f or Hodgkins Disease. ACR Practice Guidelines 2008. TECHNICAL DOCUMENTATION: FINDING NUMBER: (1) ASSESSMENT: (1) JOB ID: [id number] [employer]- All Rights Reserved Reading location - IP/workstation name: [email or web address]
== END ==
LOC: WI 10:23
DX: Z12.31 Encounter for screening mammogram for malignant neoplasm of breast (principal)
CPT/HCPCS: 77067

== ENCOUNTER 2018-03-29 20:32 | Emergency (ER) | payer OTHER ==
[2018-03-29 20:44] VITALS: BP 133/82
[2018-03-29] MEDS ORDERED: AMOXICILLIN TRIHYDRATE 500 MG CAPSULE PO ONE (21:27)
--- NOTE | 2018-03-29 21:29 | ER Document Report ---
ED ENT - General Chief Complaint: Sore Throat Stated Complaint: THROAT PAIN Time Seen by Provider: 03/29/18 21:08 Mode of Arrival: Ambulatory Information source: Patient Notes: Chief complaint: Sore throat History of complain:( obtained from----patient)62 years old female presents today saying having sore throat for the last 2 days. No fever chills or other constitutional symptoms. Her entire family and extended family were diagnosed with strep throat. Onset: Gradual Duration: 2 days Severity: Mild to moderate Quality: Sharp Context: Exposed to strep throat Exacerbating factor and relieving factors: None REVIEW OF SYSTEMS: CONSTITUTIONAL : Denies fever, chills, or sweats. Denies recent illness. EENT: Denies eye, ear, throat, or mouth pain or symptoms. Denies nasal or sinus congestion or discharge. Denies CARDIOVASCULAR: Denies chest pain. Denies palpitations or racing or irregular heart beat. Denies ankle edema. RESPIRATORY: Denies cough, cold, or chest congestion. Denies shortness of breath, difficulty breathing, or wheezing. GASTROINTESTINAL: Denies distention. Denies nausea, vomiting, or diarrhea. Denies blood in vomitus, stools, or per rectum. Denies black, tarry stools. Denies constipation. GENITOURINARY: Denies difficulty urinating, painful urination, burning, frequency, blood in urine, or discharge. FEMALE GENITOURINARY: Denies vaginal bleeding, heavy or abnormal periods, irregular periods. Denies vaginal discharge or odor. MUSCULOSKELETAL: Denies back or neck pain or stiffness. Denies joint pain or swelling. SKIN: Denies rash, lesions or sores. HEMATOLOGIC : Denies easy bruising or bleeding. LYMPHATIC: Denies swollen, enlarged glands. NEUROLOGICAL: Denies confusion or altered mental status. Denies passing out or loss of consciousness. Denies dizziness or lightheadedness. Denies headache. Denies weakness or paralysis or loss of use of either side. Denies problems with gait or speech. Denies sensory loss, numbness, or tingling. Denies seizures. PSYCHIATRIC: Denies anxiety or stress. Denies depression, suicidal ideation, or homicidal ideation. ALL OTHER SYSTEMS REVIEWED AND NEGATIVE. PHYSICAL EXAMINATION: GENERAL: Well-appearing, well-nourished and in no acute distress. HEAD: Atraumatic, normocephalic. EYES: Pupils equal round and reactive to light, extraocular movements intact, conjunctiva are normal. ENT: Nares patent, oropharynx clear without exudates. Moist mucous membranes. Adenotonsillar mucosa was erythematous NECK: Normal range of motion, supple without lymphadenopathy LUNGS: Breath sounds clear to auscultation bilaterally and equal. No wheezes rales or rhonchi. HEART: Regular rate and rhythm without murmurs ABDOMEN: Soft, nontender, nondistended abdomen. No guarding, no rebound. No masses appreciated. Examination of genitals-deferred Musculoskeletal: Normal range of motion, no pitting or edema. No cyanosis. NEUROLOGICAL: Cranial nerves grossly intact. Normal speech, normal gait. Normal sensory, motor exams PSYCH: Normal mood, normal affect. SKIN: Warm, Dry, normal turgor, no rashes or lesions noted. Dictation was performed using [employer] voice recognition software TRAVEL OUTSIDE OF THE [place] IN LAST 30 DAYS: No - HPI Notes: Dictated - Related Data Allergies/Adverse Reactions: No Known Allergies Allergy (Verified 08/31/17 10:42) Past Medical History - Social History Smoking Status: Never Smoker Cigarette use (# per day): No Chew tobacco use (# tins/day): No Smoking Education Provided: No Frequency of alcohol use: Rare Drug Abuse: None Lives with: Family Family History: Reviewed & Not Pertinent, CVA, DM, Hypertension, Other Patient has suicidal ideation: No Patient has homicidal ideation: No - Past Medical History Cardiac Medical History: Reports: Hx Hypertension Pulmonary Medical History: Reports: Hx Bronchitis, Hx Pneumonia Neurological Medical History: Reports: Hx Migraine, Hx Seizures Renal/ Medical History: Reports: Hx Ovarian Cysts. Denies: Hx Peritoneal Dialysis GI Medical History: Reports: Hx Gastroesophageal Reflux Disease, Hx Hiatal Hernia, Hx Colonoscopy - Was not completed due to her waking up and having discomfort, Hx Endoscopy Musculoskeltal Medical History: Reports Hx Arthritis, Reports Hx Musculoskeletal Trauma - Fractured clavicle Traumatic Medical History: Reports: Hx Fractures - Clavicle as a child Past Surgical History: Reports: Hx Cholecystectomy, Hx Hysterectomy, Hx Nose Surgery - Immunizations Immunizations up to date: No Hx Diphtheria, Pertussis, Tetanus Vaccination: No Review of Systems - Review of Systems Notes: Dictated Physical Exam - Vital signs Vitals: Temp Pulse Resp BP Pulse Ox 98.1 F 79 16 133/82 H 97 07//18 20:43 03/29/18 20:43 03/29/18 20:43 03/29/18 20:43 03/29/18 20:43 - Notes Notes: Dictated Course - Vital Signs Vital signs: Temp Pulse Resp BP Pulse Ox 98.1 F 79 16 133/82 H 97 03/29/18 20:43 03/29/18 20:43 03/29/18 20:43 03/29/18 20:43 03/29/18 20:43 Discharge - Discharge Clinical Impression: Pharyngitis Qualifiers: Pharyngitis/tonsillitis etiology: unspecified etiology Qualified Code(s): J02.9 - Acute pharyngitis, unspecified Condition: Fair Disposition: HOME, SELF-CARE Instructions: Sore Throat ([facility]) Prescriptions: Amoxicillin 500 mg PO TID #30 capsule Referrals: [facility] [Primary Care Provider] - Follow up as needed
== END 2018-03-29 21:40 | disposition home or self-care (01) ==
LOC: ER 20:32
DX: J02.9 Acute pharyngitis, unspecified (principal); I10 Essential (primary) hypertension; Z20.818 Contact with and (suspected) exposure to other bacterial communicable diseases
CPT/HCPCS: 87070; 87880; 99283

== ENCOUNTER → 2018-05-31 | Outpatient (CLI) | payer OTHER ==
[2018-05-31 10:37] LABS: ABSOLUTE BASOPHILS # (AUTO) 0.1 10^3/uL (0.0-0.2); ABSOLUTE EOSINOPHILS # (AUTO) 0.1 10^3/uL (0.0-0.6); ABSOLUTE LYMPHOCYTES (AUTO) 1.5 10^3/uL (0.5-4.7); ABSOLUTE MONOCYTES (AUTO) 0.5 10^3/uL (0.1-1.4); BASOPHILS % (AUTO) 0.9 % (0-2); EOSINOPHILS % (AUTO) 1.2 % (0-6); HEMATOCRIT 37.9 % (36.0-47.0); HEMOGLOBIN 12.9 g/dL (12.0-15.5); LYMPHOCYTES % (AUTO) 24.7 % (13-45); MEAN CORPUSCULAR HEMOGLOBIN 28.1 pg (27.0-33.4); MEAN CORPUSCULAR HGB CONC 33.9 g/dL (32.0-36.0); MEAN CORPUSCULAR VOLUME 83 fl (80-97); MONOCYTES % (AUTO) 8.1 % (3-13); PLATELET COUNT 233 10^3/uL (150-450); RED BLOOD COUNT 4.58 10^6/uL (3.72-5.28); RED CELL DISTRIBUTION WIDTH 14.6 % (11.5-14.0); SEGMENTED NEUTROPHILS % (AUTO) 65.1 % (42-78); TOTAL CELLS COUNTED % (AUTO) 100 %; WHITE BLOOD COUNT 6.1 10^3/uL (4.0-10.5)
[2018-05-31 11:01] LABS: ALBUMIN 4.1 g/dL (3.5-5.0); ANION GAP 11 (5-19); BLOOD UREA NITROGEN 15 mg/dL (7-20); CALCIUM 9.5 mg/dL (8.4-10.2); CARBON DIOXIDE 24 mmol/L (22-30); CHLORIDE 105 mmol/L (98-107); GLUCOSE 104 mg/dL (75-110); PHOSPHORUS 3.4 mg/dL (2.5-4.5); SODIUM 139.9 mmol/L (137-145); TOTAL PROTEIN 7.7 g/dL (6.3-8.2)
[2018-05-31 12:08] LABS: FOLATE 3.79 ng/mL (>2.76)
== END ==
LOC: CCC 08:51
DX: G62.9 Polyneuropathy, unspecified (principal); Z79.899 Other long term (current) drug therapy
CPT/HCPCS: 36415; 80048; 82040; 82306; 82607; 82746; 83036; 83735; 84100; 84155; 85025

== ENCOUNTER 2018-06-14 23:42 | Emergency (ER) | payer OTHER ==
[2018-06-14] MEDS ORDERED: LEVETIRACETAM INJ/PF 500 MG/5 ML SDV IV ONE (23:53)
[2018-06-15 00:24] LABS: ABSOLUTE BASOPHILS # (AUTO) 0.1 10^3/uL (0.0-0.2); ABSOLUTE LYMPHOCYTES (AUTO) 1.7 10^3/uL (0.5-4.7); ABSOLUTE MONOCYTES (AUTO) 0.6 10^3/uL (0.1-1.4); ABSOLUTE NEUT (AUTO) 5.7 10^3/uL (1.7-8.2); BASOPHILS % (AUTO) 0.9 % (0-2); EOSINOPHILS % (AUTO) 0.4 % (0-6); HEMOGLOBIN 12.1 g/dL (12.0-15.5); MEAN CORPUSCULAR HEMOGLOBIN 28.6 pg (27.0-33.4); MEAN CORPUSCULAR HGB CONC 34.5 g/dL (32.0-36.0); MEAN CORPUSCULAR VOLUME 83 fl (80-97); MONOCYTES % (AUTO) 7.9 % (3-13); PLATELET COUNT 204 10^3/uL (150-450); RED BLOOD COUNT 4.23 10^6/uL (3.72-5.28); SEGMENTED NEUTROPHILS % (AUTO) 69.8 % (42-78); TOTAL CELLS COUNTED % (AUTO) 100 %; WHITE BLOOD COUNT 8.2 10^3/uL (4.0-10.5)
[2018-06-15] MEDS ORDERED: LEVETIRACETAM 1000 MG/NACL-ISO 1,000 MG/100 ML RTUPB IV SCH ×2 (00:30→10:00)
[2018-06-15] MEDS ORDERED: LEVETIRACETAM 1000 MG/NACL-ISO 1,000 MG/100 ML RTUPB IV ONE (00:30)
--- NOTE | 2018-06-15 01:48 | RADIOLOGY REPORT (SQ) ---
EXAM DESCRIPTION: CT HEAD WITHOUT IV CONTRAST COMPLETED DATE/TME: 06/14/2018 23:53 CLINICAL HISTORY: 62 years, Female, confusion LIMITATIONS: None. COMPARISON: 12/04/2016. TECHNIQUE: CT brain without contrast. This exam was performed according to our departmental dose optimization program which includes use of automated exposure control, adjustment of the mA and/or kV according to patient size and/or use of iterative reconstruction technique.I mages stored on PACS. FINDINGS: The ventricles, sulci, and cisterns are within normal limits. The bingham-white matter differentiation is preserved. There is no mass effect, midline shift, intra- or extra-axial fluid collection/acute hemorrhage. The osseous structures are unremarkable. The paranasal sinuses and mastoid air cells are clear. IMPRESSION: No acute intracranial abnormalities. TECHNICAL DOCUMENTATION: Quality ID # [id number]: Final reports with documentation of one or more dose reduction techniques (e.g., Automated exposure control, adjustment of the mA and/or kV according to patient size, use of iterative reconstruction technique) 2010 [employer]- All Rights Reserved
[2018-06-15] MEDS ORDERED: FENTANYL CITRATE INJ/PF 100 MCG/2 ML AMPUL IV ONE (02:09)
[2018-06-15 02:52] LABS: ALANINE AMINOTRANSFERASE 19 U/L (9-52); ALBUMIN 3.6 g/dL (3.5-5.0); ALKALINE PHOSPHATASE 104 U/L (38-126); ANION GAP 9 (5-19); ASPARTATE AMINO TRANSFERASE 20 U/L (14-36); BILIRUBIN,DIRECT 0.2 mg/dL (0.0-0.4); BILIRUBIN,TOTAL 0.3 mg/dL (0.2-1.3); BLOOD UREA NITROGEN 23 mg/dL (7-20); CALCIUM 8.7 mg/dL (8.4-10.2); CARBON DIOXIDE 21 mmol/L (22-30); CHLORIDE 108 mmol/L (98-107); CREATINE KINASE 49 U/L (30-135); GLUCOSE 107 mg/dL (75-110); LIPASE 84.8 U/L (23-300); POTASSIUM 4.4 mmol/L (3.6-5.0); TOTAL PROTEIN 6.8 g/dL (6.3-8.2)
[2018-06-15 03:13] LABS: ALCOHOL < 10 mg/dL (NONE DETECTED)
[2018-06-15 03:14] LABS: ACETAMINOPHEN < 10 ug/mL (10-30); SALICYLATE < 1.0 mg/dL (2.0-20.0)
[2018-06-15] MEDS ORDERED: NORMAL SALINE 1000 ML 1,000 ML IV ONE (03:20)
[2018-06-15] MEDS ORDERED: ONDANSETRON HCL INJ/PF 4 MG/2 ML SDV IV ONE (03:27)
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
[2018-06-15 04:05] VITALS: BP 116/64
--- NOTE | 2018-06-15 07:58 | EKG REPORT ---
SEVERITY:- NORMAL ECG - SINUS RHYTHM : Confirmed by: Milena Trevino MD 15-Jun-2018 07:56:56
== END 2018-06-15 05:05 | disposition home or self-care (01) ==
LOC: ER 23:42
DX: G40.909 Epilepsy, unspecified, not intractable, without status epilepticus (principal); Z79.899 Other long term (current) drug therapy; E86.0 Dehydration; R51 Headache; I10 Essential (primary) hypertension
CPT/HCPCS: 93005; 99285; 96374; 36415; 80307 ×3; 82550; 83690; 85025; 80053; 84484; 70450; 93010; J3010; J2405; J1953

== ENCOUNTER 2018-08-14 21:52 | Emergency (ER) | payer OTHER ==
--- NOTE | 2018-08-14 22:46 | EKG REPORT ---
SEVERITY:- BORDERLINE ECG - SINUS RHYTHM BORDERLINE T ABNORMALITIES, ANT-LAT LEADS : Confirmed by: Milena Trevino MD 14-Aug-2018 22:45:38
[2018-08-14] MEDS ORDERED: IPRATROPIUM/ALBUTEROL 0.5-2.5 MG/3 ML AMPUL NEB ONE (23:24)
[2018-08-14] MEDS ORDERED: KETOROLAC TROMETHAMINE INJ/PF 30 MG/1 ML SDV IV ONE (23:24)
--- NOTE | 2018-08-14 23:26 | ER Document Report ---
ED General - General Chief Complaint: Chest Pain Stated Complaint: COUGH Time Seen by Provider: 08/14/18 22:42 Notes: Patient is a 62-year-old female with a past medical history of hypertension who presents with complaints of diffuse chest wall discomfort as well as left arm heaviness that started approximately 2 hours prior to arrival. The patient does report that she has had a persistent cough over the last 2 days. She states that she has had associated nasal congestion, sore throat and body aches. She states that the chest pain started tonight and since that time has been relatively unchanged. Denies a history of similar pains in the past. She states that the pain seems to be worsened by coughing. Nothing improves the pain. She denies any history of coronary artery disease. No prior history of cardiac catheterizations or stress tests. She denies any associated shortness of breath, vomiting, or diaphoresis. She has not seen her primary doctor regarding today's concerns. TRAVEL OUTSIDE OF THE [place] IN LAST 30 DAYS: No - Related Data Allergies/Adverse Reactions: No Known Allergies Allergy (Verified 08/31/17 10:42) Past Medical History - General Information source: Patient - Social History Smoking Status: Never Smoker Frequency of alcohol use: None Drug Abuse: None Lives with: Spouse/Significant other Family History: Reviewed & Not Pertinent, CVA, DM, Hypertension, Other Patient has suicidal ideation: No Patient has homicidal ideation: No - Past Medical History Cardiac Medical History: Reports: Hx Hypertension Pulmonary Medical History: Reports: Hx Bronchitis, Hx Pneumonia Neurological Medical History: Reports: Hx Migraine, Hx Seizures Renal/ Medical History: Reports: Hx Ovarian Cysts. Denies: Hx Peritoneal Dialysis GI Medical History: Reports: Hx Gastroesophageal Reflux Disease, Hx Hiatal Hernia, Hx Colonoscopy - Was not completed due to her waking up and having discomfort, Hx Endoscopy Musculoskeletal Medical History: Reports Hx Arthritis, Reports Hx Musculoskeletal Trauma - Fractured clavicle Traumatic Medical History: Reports: Hx Fractures - Clavicle as a child Past Surgical History: Reports: Hx Cholecystectomy, Hx Hysterectomy, Hx Nose Surgery - Immunizations Immunizations up to date: No Hx Diphtheria, Pertussis, Tetanus Vaccination: No Review of Systems - Review of Systems Notes: Constitutional: Negative for fever. HENT: Negative for sore throat. Eyes: Negative for visual changes. Cardiovascular: Positive for chest pain. Respiratory: Negative for shortness of breath. Positive for cough Gastrointestinal: Negative for abdominal pain, vomiting or diarrhea. Genitourinary: Negative for dysuria. Musculoskeletal: Negative for back pain. Skin: Negative for rash. Neurological: Negative for headaches, weakness or numbness. 10 point ROS negative except as marked above and in HPI. Physical Exam - Vital signs Vitals: Temp Pulse Resp BP Pulse Ox 98.1 F 96 20 116/75 96 08/14/18 22:30 08/14/18 22:30 08/14/18 22:30 08/14/18 22:30 08/14/18 22:30 Interpretation: Normal Notes: PHYSICAL EXAMINATION: GENERAL: Well-appearing, well-nourished and in no acute distress. HEAD: Atraumatic, normocephalic. EYES: Pupils equal round and reactive to light, extraocular movements intact, sclera anicteric, conjunctiva are normal. ENT: nares patent, oropharynx clear without exudates. Moist mucous membranes. NECK: Normal range of motion, supple without lymphadenopathy LUNGS: Breath sounds clear to auscultation bilaterally and equal. No wheezes rales or rhonchi. HEART: Regular rate and rhythm without murmurs ABDOMEN: Soft, nontender, normoactive bowel sounds. No guarding, no rebound. No masses appreciated. EXTREMITIES: Normal range of motion, no pitting or edema. No cyanosis. NEUROLOGICAL: No focal neurological deficits. Moves all extremities spontaneously and on command. PSYCH: Normal mood, normal affect. SKIN: Warm, Dry, normal turgor, no rashes or lesions noted. Course - Re-evaluation Re-evalutation: 08/14/18 23:25 Presentation of chest pain in an otherwise well appearing patient. Low clinical suspicion for ACS given clinical history, exam, EKG without ST elevations or depressions, and negative initial troponin. HEART score less than or equal to 3. PE also seems unlikely given clinical history, absence of tachycardia or dyspnea. Patient is PERC criteria negative. CXR without evidence of pneumothorax or pneumonia. No widened mediastinum. Aortic dissection also seems unlikely given history, symmetric pulses, CXR, and vitals. Will obtain repeat delta troponin 3 hours from initial. HEART Score: History0 ECG1 Age1 Risk Factors1 Troponin0 Total:3 Regards the patient's nasal congestion and cough: Presentation is most consistent with a viral upper respiratory infection. Patient is overall well appearance, vitals within normal limits, well-hydrated. Patient denies any headache, neck pain, and has no evidence of meningismus on examination. Lungs are clear bilaterally. No evidence of respiratory distress. Based on clinical exam and history, I do not suspect an acute pneumonia, meningitis, strep pharyngitis, or an acute encephalitis. Chest x-ray clear without evidence of a pneumonia. 08/15/18 03:02 Patient has had complete resolution of all of her chest discomfort after receiving Toradol. Repeat cardiac marker remains normal. Overall assessment: Chest pain in a patient without evidence of cardiac or other serious etiology on workup today. I discussed with patient that, based on their age, risk factors and emergency department testing today, the likelihood that their symptoms are related to a heart attack is very low (estimated risk of heart attack or over the next 30 days of less than 1%). The patient demonstrates decision making capacity and has verbalized an understanding of these risks to me. Based on this, the patient has chosen to follow-up as an outpatient. Usual chest pain return precautions reviewed. The patient states understanding and agreement with this plan. - Vital Signs Vital signs: Temp Pulse Resp BP Pulse Ox 98.1 F 96 19 107/75 99 08/14/18 22:30 08/14/18 22:30 08/15/18 03:01 08/15/18 03:01 08/15/18 03:01 - Laboratory Result Diagrams: 08/14/18 23:55 08/14/18 23:55 Laboratory results interpreted by me: 08/14/18 08/14/18 23:55 23:55 WBC 14.3 H Hgb 11.7 L Hct 34.0 L RDW 14.1 H Seg Neutrophils % 85.0 H Lymphocytes % 8.2 L Absolute Neutrophils 12.1 H Glucose 116 H - Diagnostic Test Radiology reviewed: Image reviewed, Reports reviewed Radiology results interpreted by me: 08/15/18 03:02 Chest x-ray: No acute infiltrate or pneumothorax - EKG Interpretation by Me Additional EKG results interpreted by me: 08/14/18 23:26 Sinus rhythm. Rate 90. Flattened T waves in the lateral leads. No ST elevations or depressions. QTC is 421. Discharge - Discharge Clinical Impression: Persistent cough, Chest discomfort Acute bronchitis Qualifiers: Bronchitis organism: unspecified organism Qualified Code(s): J20.9 - Acute bronchitis, unspecified Condition: Good Disposition: HOME, SELF-CARE Additional Instructions: You were seen today for chest pain. The exact cause of your pain is unclear but is likely related to recent cough and muscle pain in her chest. However, based on your cardiac enzyme testing, chest x-ray, and EKG it does not appear that it is from an immediately life-threatening cause at this time. Although your testing here is normal is critical that you follow-up with your primary care physician for continued evaluation of this chest pain and possible stress testing. I recommended you see your physician within the next 24-48 hours to be evaluated for consideration of a stress test. Please return to emergency department immediately if you have worsening of your chest pain, shortness of breath, vomiting, become unable to exert yourself due to pain or difficulty breathing, you pass out, or have any pain that radiates into your arms, jaw, or back. Please also return if you have any additional symptoms that are concerning to you. You were seen for symptoms most consistent with bronchitis. This can take up to 12 weeks to fully resolve. This is generally due to a viral infection. Please follow-up with your primary doctor in the next 2-3 days. Return if you develop worsening cough, vomiting, fever >100.4, pass out, begin coughing blood, or have any other symptoms that are concerning to you. Please use the medications prescribed today as directed. Prescriptions: Benzonatate [Tessalon Perles 100 mg Capsule] 100 mg PO Q8HP PRN #40 capsule PRN Reason: Referrals: JALIL KITCHEN MD [Primary Care Provider] - Follow up in 3-5 days
--- NOTE | 2018-08-14 23:53 | RADIOLOGY REPORT (SQ) ---
EXAM DESCRIPTION: XR CHEST 1 VIEW COMPLETED DATE/TME: 08/14/2018 22:43 CLINICAL HISTORY: 62 years, Female, cp COMPARISON: None. NUMBER OF VIEWS: TECHNIQUE: LIMITATIONS: None. FINDINGS: No evidence of pulmonary infiltrate or pleural effusion. The heart and mediastinum are unremarkable. Pulmonary vascularity appears normal. IMPRESSION: No acute finding. 2010 [employer]- All Rights Reserved
[2018-08-15 00:05] LABS: ABSOLUTE BASOPHILS # (AUTO) 0.1 10^3/uL (0.0-0.2); ABSOLUTE LYMPHOCYTES (AUTO) 1.2 10^3/uL (0.5-4.7); ABSOLUTE MONOCYTES (AUTO) 0.9 10^3/uL (0.1-1.4); ABSOLUTE NEUT (AUTO) 12.1 10^3/uL (1.7-8.2); BASOPHILS % (AUTO) 0.5 % (0-2); EOSINOPHILS % (AUTO) 0.3 % (0-6); HEMOGLOBIN 11.7 g/dL (12.0-15.5); LYMPHOCYTES % (AUTO) 8.2 % (13-45); MEAN CORPUSCULAR HEMOGLOBIN 28.8 pg (27.0-33.4); MEAN CORPUSCULAR HGB CONC 34.5 g/dL (32.0-36.0); MEAN CORPUSCULAR VOLUME 83 fl (80-97); PLATELET COUNT 207 10^3/uL (150-450); RED BLOOD COUNT 4.08 10^6/uL (3.72-5.28); RED CELL DISTRIBUTION WIDTH 14.1 % (11.5-14.0); TOTAL CELLS COUNTED % (AUTO) 100 %; WHITE BLOOD COUNT 14.3 10^3/uL (4.0-10.5)
[2018-08-15 00:26] LABS: ANION GAP 11 (5-19); BLOOD UREA NITROGEN 17 mg/dL (7-20); CARBON DIOXIDE 27 mmol/L (22-30); CHLORIDE 103 mmol/L (98-107); GLUCOSE 116 mg/dL (75-110); POTASSIUM 3.6 mmol/L (3.6-5.0); SODIUM 141.4 mmol/L (137-145)
[2018-08-15] MEDS ORDERED: KETOROLAC TROMETHAMINE INJ/PF 30 MG/1 ML SDV IV ONE (01:57)
[2018-08-15] MEDS ORDERED: ALBUTEROL SULFATE HFA (90 MCG/PUFF) 200 PUFF/8.5 GM MDI IH ONE (03:02)
[2018-08-15] MEDS ORDERED: DEXAMETHASONE 4 MG TABLET PO ONE (03:02)
[2018-08-15 03:15] VITALS: BP 107/75
== END 2018-08-15 03:32 | disposition home or self-care (01) ==
LOC: ER 21:52
DX: J20.9 Acute bronchitis, unspecified (principal); R05 Cough; R07.9 Chest pain, unspecified; R09.81 Nasal congestion; J02.9 Acute pharyngitis, unspecified; M79.10 Myalgia, unspecified site; I10 Essential (primary) hypertension
CPT/HCPCS: 93005; 96376; 94640; 99285; 96374; 36415; 85025; 80048; 84484; 71045; 93010; J1885; J3490; J7620

== ENCOUNTER 2018-10-14 21:53 | Emergency (ER) | payer OTHER ==
[2018-10-14] MEDS ORDERED: MIDAZOLAM 2 MG/2 ML INJ IV ONE (22:15)
--- NOTE | 2018-10-14 22:28 | ER Document Report ---
ED Medical Screen (RME) - General Chief Complaint: Seizure Stated Complaint: SEIZURE Time Seen by Provider: 10/14/18 22:09 Primary Care Provider: JALIL KITCHEN MD [Primary Care Provider] - Follow up as needed Notes: 63-year-old female, brought in by family members for seizure, patient was sitting on the toilet approximately 40 minutes ago and became unresponsive, clutching her hands tightly, eyes rolled back. Patient was eased to the ground by family. Patient does have a history of seizures, medicated, was complaining of headaches all day, apparently this is not uncommon for the patient. Last seizure was in August. TRAVEL OUTSIDE OF THE [place] IN LAST 30 DAYS: No - Related Data Allergies/Adverse Reactions: No Known Allergies Allergy (Verified 08/31/17 10:42) Past Medical History - Past Medical History Cardiac Medical History: Reports: Hx Hypertension Pulmonary Medical History: Reports: Hx Bronchitis, Hx Pneumonia Neurological Medical History: Reports: Hx Migraine, Hx Seizures Renal/ Medical History: Reports: Hx Ovarian Cysts. Denies: Hx Peritoneal Dialysis GI Medical History: Reports: Hx Gastroesophageal Reflux Disease, Hx Hiatal Hernia, Hx Colonoscopy - Was not completed due to her waking up and having discomfort, Hx Endoscopy Musculoskeltal Medical History: Reports Hx Arthritis, Reports Hx Musculoskeletal Trauma - Fractured clavicle Traumatic Medical History: Reports: Hx Fractures - Clavicle as a child Past Surgical History: Reports: Hx Cholecystectomy, Hx Hysterectomy, Hx Nose Surgery - Immunizations Immunizations up to date: No Hx Diphtheria, Pertussis, Tetanus Vaccination: No History of Influenza Vaccine for 06/2017 - 11/2017 Season: No Physical Exam - Vital signs Vitals: Temp Pulse Resp BP Pulse Ox 98.1 F 103 H 16 149/88 H 99 10/14/18 21:58 10/14/18 21:58 10/14/18 21:58 10/14/18 21:58 10/14/18 21:58 - Neurological Josue Coma Scale Eye Opening: None Josue Coma Scale Verbal: None Josue Coma Scale Motor: None [place] Coma Scale Total: 3 Course - Re-evaluation Re-evalutation: Patient with hands tightly clenched, eyes rolled back, not responding. Appears to be currently seizing. I suspect she has been having seizures persistently for the past 40 minutes. Patient immediately made a level 1 triage, taken back to trauma 1 by me, alerted Dr. Diez who came immediately into the trauma b ay. I had already ordered 4 mg of Versed and this was given by nursing staff. - Vital Signs Vital signs: Temp Pulse Resp BP Pulse Ox 98.1 F 103 H 16 149/88 H 99 10/14/18 21:58 10/14/18 21:58 10/14/18 21:58 10/14/18 21:58 10/14/18 21:58 Doctor's Discharge - Discharge Referrals: JALIL KITCHEN MD [Primary Care Provider] - Follow up as needed
--- NOTE | 2018-10-14 22:35 | ER Document Report ---
ED General - General Chief Complaint: Seizure Stated Complaint: SEIZURE Time Seen by Provider: 10/14/18 22:09 Primary Care Provider: JALIL KITCHEN MD [Primary Care Provider] - Follow up as needed TRAVEL OUTSIDE OF THE [place] IN LAST 30 DAYS: No - Related Data Allergies/Adverse Reactions: No Known Allergies Allergy (Verified 08/31/17 10:42) Past Medical History - Social History Smoking Status: Never Smoker Chew tobacco use (# tins/day): No Frequency of alcohol use: None Drug Abuse: None Family History: Reviewed & Not Pertinent, CVA, DM, Hypertension, Other Patient has suicidal ideation: No Patient has homicidal ideation: No - Past Medical History Cardiac Medical History: Reports: Hx Hypertension Pulmonary Medical History: Reports: Hx Bronchitis, Hx Pneumonia Neurological Medical History: Reports: Hx Migraine, Hx Seizures Renal/ Medical History: Reports: Hx Ovarian Cysts. Denies: Hx Peritoneal Dialysis GI Medical History: Reports: Hx Gastroesophageal Reflux Disease, Hx Hiatal Hernia, Hx Colonoscopy - Was not completed due to her waking up and having discomfort, Hx Endoscopy Musculoskeletal Medical History: Reports Hx Arthritis, Reports Hx Musculoskeletal Trauma - Fractured clavicle Traumatic Medical History: Reports: Hx Fractures - Clavicle as a child Past Surgical History: Reports: Hx Cholecystectomy, Hx Hysterectomy, Hx Nose Surgery - Immunizations Immunizations up to date: No Hx Diphtheria, Pertussis, Tetanus Vaccination: No Physical Exam - Vital signs Vitals: Temp Pulse Resp BP Pulse Ox 98.1 F 103 H 16 149/88 H 99 10/14/18 21:58 10/14/18 21:58 10/14/18 21:58 10/14/18 21:58 10/14/18 21:58 Course - Vital Signs Vital signs: Temp Pulse Resp BP Pulse Ox 98.1 F 103 H 25 H 95/58 L 96 10/14/18 21:58 10/14/18 21:58 10/15/18 00:30 10/15/18 00:30 10/15/18 00:30 - Laboratory Result Diagrams: 10/14/18 22:33 10/14/18 23:15 Laboratory results interpreted by me: 10/14/18 10/14/18 22:33 23:15 Hgb 11.8 L Hct 35.3 L RDW 14.8 H Chloride 108 H BUN 22 H Glucose 127 H Discharge - Discharge Clinical Impression: Seizure Condition: Stable Disposition: HOME, SELF-CARE Instructions: Seizure, Known Epileptic ([facility]) Additional Instructions: Your seen today in the emergency department for your seizure. You had an evaluation including a physical exam, blood tests, your given medicines to help prevent your seizure. Make sure you are taking her medicines appropriately to try and prevent seizures. Return for worsening seizures, follow-up with your neurologist this week for adjustments in any doses to your medicine. Do not miss any doses of your Tegretol as it is very important to take. Referrals: JALIL KITCHEN MD [Primary Care Provider] - Follow up as needed
[2018-10-14 22:44] LABS: ABSOLUTE BASOPHILS # (AUTO) 0.1 10^3/uL (0.0-0.2); ABSOLUTE EOSINOPHILS # (AUTO) 0.1 10^3/uL (0.0-0.6); ABSOLUTE LYMPHOCYTES (AUTO) 2.7 10^3/uL (0.5-4.7); ABSOLUTE MONOCYTES (AUTO) 0.8 10^3/uL (0.1-1.4); ABSOLUTE NEUT (AUTO) 6.2 10^3/uL (1.7-8.2); BASOPHILS % (AUTO) 1.2 % (0-2); EOSINOPHILS % (AUTO) 0.9 % (0-6); HEMATOCRIT 35.3 % (36.0-47.0); HEMOGLOBIN 11.8 g/dL (12.0-15.5); LYMPHOCYTES % (AUTO) 27.4 % (13-45); MEAN CORPUSCULAR HEMOGLOBIN 27.9 pg (27.0-33.4); MEAN CORPUSCULAR HGB CONC 33.5 g/dL (32.0-36.0); MEAN CORPUSCULAR VOLUME 83 fl (80-97); MONOCYTES % (AUTO) 8.3 % (3-13); PLATELET COUNT 204 10^3/uL (150-450); RED BLOOD COUNT 4.24 10^6/uL (3.72-5.28); RED CELL DISTRIBUTION WIDTH 14.8 % (11.5-14.0); SEGMENTED NEUTROPHILS % (AUTO) 62.2 % (42-78); TOTAL CELLS COUNTED % (AUTO) 100 %
--- NOTE | 2018-10-14 22:59 | RADIOLOGY REPORT (SQ) ---
EXAM DESCRIPTION: CT HEAD WITHOUT IV CONTRAST COMPLETED DATE/TME: 10/14/2018 22:14 CLINICAL HISTORY: 63 years, Female, unresponsive COMPARISON: 06/15/2018 CT brain TECHNIQUE: 186 Images stored on PACS. All CT scanners at this facility use dose modulation, iterative reconstruction, and/or weight based dosing when appropriate to reduce radiation dose to as low as reasonably achievable (ALARA). [facility]: Dose Right [facility]: CareDose [facility]: Dose Right [facility]: Teradose 4D [facility]: [employer] LIMITATIONS: None. FINDINGS: The globes are intact. Mucosal thickening maxillary sinuses. No displaced or depressed skull fracture. No intra or extra-axial hemorrhage. CT is limited for evaluation of acute infarct. No CT evidence for large or territorial acute infarct. No mass or midline shift. IMPRESSION: Negative for acute intracranial abnormality TECHNICAL DOCUMENTATION: Quality ID # [id number]: Final reports with documentation of one or more dose reduction techniques (e.g., Automated exposure control, adjustment of the mA and/or kV according to patient size, use of iterative reconstruction technique) copyright 2011 [employer]- All Rights Reserved
--- NOTE | 2018-10-14 23:00 | RADIOLOGY REPORT (SQ) ---
EXAM DESCRIPTION: XR CHEST 1 VIEW COMPLETED DATE/TME: 10/14/2018 22:14 CLINICAL HISTORY: 63 years, Female, unresponsive COMPARISON: 08/14/2018 chest NUMBER OF VIEWS: 1 TECHNIQUE: Normal chest LIMITATIONS: None. FINDINGS: Heart size is normal. Osteopenia. Lungs are clear. No pneumothorax IMPRESSION: No acute cardiopulmonary process copyright 2010 [employer]- All Rights Reserved
[2018-10-14 23:05] LABS: VENOUS BLOOD BASE EXCESS 1.7 mmol/L; VENOUS BLOOD HCO3 26.9 mmol/L (20-32); VENOUS BLOOD PCO2 44.9 mmHg (35-63); VENOUS BLOOD PH 7.4 (7.30-7.42)
[2018-10-14] MEDS ORDERED: LEVETIRACETAM 1000 MG/NACL-ISO 1,000 MG/100 ML RTUPB IV ONE (23:21)
[2018-10-14 23:45] LABS: ALANINE AMINOTRANSFERASE 22 U/L (9-52); ALBUMIN 3.9 g/dL (3.5-5.0); ALKALINE PHOSPHATASE 109 U/L (38-126); ANION GAP 6 (5-19); ASPARTATE AMINO TRANSFERASE 19 U/L (14-36); BILIRUBIN,DIRECT 0.2 mg/dL (0.0-0.4); BILIRUBIN,TOTAL 0.3 mg/dL (0.2-1.3); BLOOD UREA NITROGEN 22 mg/dL (7-20); CALCIUM 9.2 mg/dL (8.4-10.2); CARBON DIOXIDE 25 mmol/L (22-30); CHLORIDE 108 mmol/L (98-107); GLUCOSE 127 mg/dL (75-110); SODIUM 139.2 mmol/L (137-145); TOTAL PROTEIN 6.8 g/dL (6.3-8.2)
[2018-10-14 23:49] LABS: ALCOHOL < 10 mg/dL (NONE DETECTED)
[2018-10-15] MEDS ORDERED: FENTANYL CITRATE INJ/PF 100 MCG/2 ML AMPUL IV ONE (01:47)
[2018-10-15] MEDS ORDERED: KETOROLAC TROMETHAMINE INJ/PF 30 MG/1 ML SDV IV ONE (01:48)
[2018-10-15 03:05] VITALS: BP 106/69
--- NOTE | 2018-10-15 08:58 | EKG REPORT ---
SEVERITY:- NORMAL ECG - SINUS RHYTHM : Confirmed by: Milena Trevino MD 15-Oct-2018 08:58:11
== END 2018-10-15 03:34 | disposition home or self-care (01) ==
LOC: ER 21:53
DX: G40.909 Epilepsy, unspecified, not intractable, without status epilepticus (principal); I10 Essential (primary) hypertension; Z90.49 Acquired absence of other specified parts of digestive tract; Z90.710 Acquired absence of both cervix and uterus
CPT/HCPCS: 93005; 96376; 99285; 96375; 96365; 36415; 80307; 83735; 85025; 80053; 82803; 71045; 70450; 93010; J2250; J3010; J1885; J1953

== ENCOUNTER 2018-10-15 10:44 | Emergency (ER) | payer OTHER ==
[2018-10-15] MEDS ORDERED: KETOROLAC TROMETHAMINE 60 MG/2 ML SDV IM ONE (12:11)
[2018-10-15] MEDS ORDERED: ONDANSETRON 4 MG TAB.RAPDIS PO ONE (12:11)
[2018-10-15] MEDS ORDERED: OXYCODONE-ACETAMINOPHEN 5-325 MG TABLET PO ONE (12:11)
--- NOTE | 2018-10-15 12:12 | ER Document Report ---
ED Medical Screen (RME) - General Chief Complaint: Headache Stated Complaint: HEADACHE Time Seen by Provider: 10/15/18 12:04 Primary Care Provider: JALIL KITCHEN MD [Primary Care Provider] - Follow up as needed Notes: 63-year-old female patient with left frontal headache. She is moaning and crying at triage. She was seen here yesterday following a seizure. She normally takes Tegretol 200 mg 3 times daily for seizures, and by history has not had a seizure in quite a while. She does get these headaches after she has had a seizure. On the visit yesterday, she had lab work and a negative CT scan of the head. I have greeted and performed a rapid initial assessment of this patient. A comprehensive ED assessment and evaluation of the patient, analysis of test results and completion of the medical decision making process will be conducted by additional ED providers. TRAVEL OUTSIDE OF THE [place] IN LAST 30 DAYS: No - Related Data Allergies/Adverse Reactions: No Known Allergies Allergy (Verified 08/31/17 10:42) Past Medical History - Social History Chew tobacco use (# tins/day): No Frequency of alcohol use: None Drug Abuse: None - Past Medical History Cardiac Medical History: Reports: Hx Hypertension Pulmonary Medical History: Reports: Hx Bronchitis, Hx Pneumonia Neurological Medical History: Reports: Hx Migraine, Hx Seizures Renal/ Medical History: Reports: Hx Ovarian Cysts. Denies: Hx Peritoneal Dialysis GI Medical History: Reports: Hx Gastroesophageal Reflux Disease, Hx Hiatal Hernia, Hx Colonoscopy - Was not completed due to her waking up and having discomfort, Hx Endoscopy Musculoskeltal Medical History: Reports Hx Arthritis, Reports Hx Musculoskeletal Trauma - Fractured clavicle Traumatic Medical History: Reports: Hx Fractures - Clavicle as a child Past Surgical History: Reports: Hx Cholecystectomy, Hx Hysterectomy, Hx Nose Surgery - Immunizations Immunizations up to date: No Hx Diphtheria, Pertussis, Tetanus Vaccination: No History of Influenza Vaccine for 06/2017 - 11/2017 Season: No Physical Exam - Vital signs Vitals: Temp Pulse Resp BP Pulse Ox 98.3 F 85 20 125/78 95 10/15/18 11:06 10/15/18 11:06 10/15/18 11:06 10/15/18 11:06 10/15/18 11:06 Course - Vital Signs Vital signs: Temp Pulse Resp BP Pulse Ox 98.3 F 85 20 125/78 95 10/15/18 11:06 10/15/18 11:06 10/15/18 11:06 10/15/18 11:06 10/15/18 11:06 Doctor's Discharge - Discharge Referrals: JALIL KITCHEN MD [Primary Care Provider] - Follow up as needed
[2018-10-15] MEDS ORDERED: HYDROXYZINE HCL INJ 50 MG/1 ML VIAL IM ONE (13:05)
--- NOTE | 2018-10-15 13:59 | ER Document Report ---
ED General - General Chief Complaint: Headache Stated Complaint: HEADACHE Time Seen by Provider: 10/15/18 12:04 Primary Care Provider: JALIL KITCHEN MD [Primary Care Provider] - Follow up as needed TRAVEL OUTSIDE OF THE [place] IN LAST 30 DAYS: No - HPI Patient complains to provider of: Headache Notes: Patient coming in for evaluation of a headache. Patient was seen by triage provider's notes provided below. 63-year-old female patient with left frontal headache. She is moaning and crying at triage. She was seen here yesterday following a seizure. She normally takes Tegretol 200 mg 3 times daily for seizures, and by history has not had a seizure in quite a while. She does get these headaches after she has had a seizure. On the visit yesterday, she had lab work and a negative CT scan of the head. Patient coming in for headache does agree with the statement above. Patient states that she has not had a seizure and 3 months however did have one yesterday patient was seen and evaluated with appropriate workup that was otherwise negative sent home patient states that she continues to have a headache patient denies taking any Tylenol or Motrin for headache at home patient upon my evaluation is lying in stretcher in the right lateral recumbent position moaning. Patient is able to sit up at bedside denies any new trauma denies any fevers chills nausea vomiting diarrhea patient states the headache is left frontal similar to her headaches in the past after having seizures. - Related Data Allergies/Adverse Reactions: No Known Allergies Allergy (Verified 08/31/17 10:42) Past Medical History - Social History Smoking Status: Never Smoker Chew tobacco use (# tins/day): No Frequency of alcohol use: None Drug Abuse: None Family History: Reviewed & Not Pertinent, CVA, DM, Hypertension, Other Patient has suicidal ideation: No Patient has homicidal ideation: No - Past Medical History Cardiac Medical History: Reports: Hx Hypertension Pulmonary Medical History: Reports: Hx Bronchitis, Hx Pneumonia Neurological Medical History: Reports: Hx Migraine, Hx Seizures Renal/ Medical History: Reports: Hx Ovarian Cysts. Denies: Hx Peritoneal Dialysis GI Medical History: Reports: Hx Gastroesophageal Reflux Disease, Hx Hiatal Hernia, Hx Colonoscopy - Was not completed due to her waking up and having discomfort, Hx Endoscopy Musculoskeletal Medical History: Reports Hx Arthritis, Reports Hx Musculoskeletal Trauma - Fractured clavicle Traumatic Medical History: Reports: Hx Fractures - Clavicle as a child Past Surgical History: Reports: Hx Cholecystectomy, Hx Hysterectomy, Hx Nose Surgery - Immunizations Immunizations up to date: No Hx Diphtheria, Pertussis, Tetanus Vaccination: No Review of Systems - Review of Systems Constitutional: No symptoms reported EENT: No symptoms reported Cardiovascular: No symptoms reported Respiratory: No symptoms reported Gastrointestinal: No symptoms reported Genitourinary: No symptoms reported Female Genitourinary: No symptoms reported Musculoskeletal: No symptoms reported Skin: No symptoms reported Hematologic/Lymphatic: No symptoms reported Neurological/Psychological: Headaches -: Yes All other systems reviewed and negative Physical Exam - Vital signs Vitals: Temp Pulse Resp BP Pulse Ox 98.3 F 85 20 125/78 95 10/15/18 11:06 10/15/18 11:06 10/15/18 11:06 10/15/18 11:06 10/15/18 11:06 Interpretation: Normal - General General appearance: Appears well, Alert - HEENT Head: Normocephalic, Atraumatic Eyes: Normal Conjunctiva: Normal Cornea: Normal Extraocular movements intact: Yes Eyelashes: Normal Pupils: PERRL Neck: Normal - Respiratory Respiratory status: No respiratory distress Chest status: Nontender Breath sounds: Normal Chest palpation: Normal - Cardiovascular Rhythm: Regular Heart sounds: Normal auscultation Murmur: No - Abdominal Inspection: Normal Distension: No distension Bowel sounds: Normal Tenderness: Nontender Organomegaly: No organomegaly - Back Back: Normal, Nontender - Extremities General upper extremity: Normal inspection, Nontender, Normal color, Normal ROM, Normal temperature General lower extremity: Normal inspection, Nontender, Normal color, Normal ROM, Normal temperature, Normal weight bearing. No: Emerita's sign - Neurological Neuro grossly intact: Yes Cognition: Normal Orientation: AAOx4 Josue Coma Scale Eye Opening: Spontaneous Josue Coma Scale Verbal: Oriented [place] Coma Scale Motor: Obeys Commands Josue Coma Scale Total: 15 Speech: Normal Motor strength normal: LUE, RUE, LLE, RLE Sensory: Normal - Psychological Associated symptoms: Normal affect, Normal mood - Skin Skin Temperature: Warm Skin Moisture: Dry Skin Color: Normal Course - Re-evaluation Re-evalutation: 10/15/18 15:34 The patient presents with headache without signs of DUAL HOSE CEMENTER bleed, stroke, infection, or other serious etiology. The patient is neurologically intact. Given the extremely low risk of these diagnoses further testing and evaluation for these possibilities does not appear to be indicated at this time. The patient has been instructed to return if the symptoms worsen or change in any way.. Patient coming in for evaluation of a headache patient was given a headache cocktail in triage upon my evaluation states minimal relief I did give the patient an IM injection of Vistaril patient was then stretcher 13 hallway and did make multiple passes of the patient after administration of her medications find patient sleeping. After time observation and did arouse patient patient workup states she still had a headache I did reassure the patient that she looked as she was resting comfortably and that we will send her home with Vistaril and and Compazine Zofran for her headache states in agreement with this plan patient discharged home - Vital Signs Vital signs: Temp Pulse Resp BP Pulse Ox 97.6 F 65 16 110/59 L 100 10/15/18 14:30 10/15/18 14:30 10/15/18 14:30 10/15/18 14:30 10/15/18 14:30 Discharge - Discharge Clinical Impression: Seizure disorder Headache Qualifiers: Headache type: unspecified Headache chronicity pattern: unspecified pattern Intractability: not intractable Qualified Code(s): R51 - Headache Condition: Good Disposition: HOME, SELF-CARE Instructions: Headache ([facility]) Additional Instructions: I recommend taking the Zofran Compazine combination as prescribed for your headache you may also take the Vistaril at night to help with any sleep he may also continue Tylenol and Motrin for headache control and pain control follow-up with your doctor Wednesday. Prescriptions: Hydroxyzine Pamoate [Vistaril 25 mg Capsule] 25 mg PO DAILY #14 capsule Ondansetron HCl [Zofran 4 mg Tablet] 1 - 2 tab PO Q6 #30 tablet Prochlorperazine Maleate [Compazine] 5 mg PO Q6 #30 tablet Referrals: JALIL KITCHEN MD [Primary Care Provider] - Follow up as needed
[2018-10-15 14:46] VITALS: BP 110/59
== END 2018-10-15 14:30 | disposition home or self-care (01) ==
LOC: ER 10:44
DX: R51 Headache (principal); G40.909 Epilepsy, unspecified, not intractable, without status epilepticus; I10 Essential (primary) hypertension
CPT/HCPCS: 99283; 96372; J1885; S0119; J3490

== ENCOUNTER 2018-11-12 15:18 | Emergency (ER) | payer OTHER ==
[2018-11-12] MEDS ORDERED: HYDROCODONE/ACETAMINOPHEN 5-325 MG TABLET PO ONE (15:59)
--- NOTE | 2018-11-12 16:01 | ER Document Report ---
HPI - HPI Patient complains to provider of: Ankle injury Time Seen by Provider: 11/12/18 15:55 Onset: Just prior to arrival Onset/Duration: Sudden Quality of pain: Achy Pain Level: 3 Context: Patient states that she slipped on a wet surface falling with her left leg bent underneath her. Patient complains of left foot, left ankle, and left upper thigh tenderness. Patient denies any head injury or loss of consciousness. Patient does not take any anticoagulant medications. Associated Symptoms: Other - Left lower extremity injury Exacerbated by: Standing, Movement, Walking Relieved by: Denies Similar symptoms previously: No Recently seen / treated by doctor: No - ROS ROS below otherwise negative: Yes Systems Reviewed and Negative: Yes All other systems reviewed and negative - NEURO Neurology: DENIES: Headache, Weakness - GASTROINTESTINAL Gastrointestinal: DENIES: Nausea - REPRODUCTIVE Reproductive: DENIES: : - MUSCULOSKELETAL Musculoskeletal: REPORTS: Extremity pain, Swelling. DENIES: Back Pain - DERM Skin Color: Normal Skin Problems: None Past Medical History - General Information source: Patient - Social History Smoking Status: Never Smoker Frequency of alcohol use: None Drug Abuse: None Occupation: None Lives with: Spouse/Significant other Family History: Reviewed & Not Pertinent, CVA, DM, Hypertension, Other - Past Medical History Cardiac Medical History: Reports: Hx Hypertension Pulmonary Medical History: Reports: Hx Bronchitis, Hx Pneumonia Neurological Medical History: Reports: Hx Migraine, Hx Seizures Renal/ Medical History: Reports: Hx Ovarian Cysts. Denies: Hx Peritoneal Dialysis GI Medical History: Reports: Hx Gastroesophageal Reflux Disease, Hx Hiatal Hernia, Hx Colonoscopy - Was not completed due to her waking up and having discomfort, Hx Endoscopy Musculoskeletal Medical History: Reports Hx Arthritis, Reports Hx Musculoskeletal Trauma - Fractured clavicle Traumatic Medical History: Reports: Hx Fractures - Clavicle as a child Past Surgical History: Reports: Hx Cholecystectomy, Hx Hysterectomy, Hx Nose Surgery - Immunizations Immunizations up to date: No Hx Diphtheria, Pertussis, Tetanus Vaccination: No Vertical Provider Document - CONSTITUTIONAL Agree With Documented VS: Yes Exam Limitations: No Limitations General Appearance: WD/WN, No Apparent Distress - INFECTION CONTROL TRAVEL OUTSIDE OF THE [place] IN LAST 30 DAYS: No - HEENT HEENT: Atraumatic, Normocephalic - NECK Neck: Normal Inspection, Supple - RESPIRATORY Respiratory: Breath Sounds Normal, No Respiratory Distress - CARDIOVASCULAR Cardiovascular: Regular Rate, Regular Rhythm Pulses: Normal: Dorsalis pedis - BACK Back: Normal Inspection Notes: No midline tenderness step-off or deformity - MUSCULOSKELETAL/EXTREMETIES Musculoskeletal/Extremeties: MAEW, Tender - Left ankle tenderness over lateral malleolar area with 2+ edema, left lateral midfoot tenderness. Patient unable to bear weight. Patient with proximal left lateral femur tenderness. Soft muscle compartments to thigh., Edema - Left lateral ankle - NEURO Level of Consciousness: Awake, Alert, Appropriate Motor/Sensory: No Motor Deficit - DERM Integumentary: Warm, Dry, No Rash Course - Vital Signs Vital signs: Temp Pulse Resp BP Pulse Ox 97.9 F 75 16 116/95 H 98 11/12/18 15:45 11/12/18 15:45 11/12/18 15:45 11/12/18 15:45 11/12/18 15:45 - Diagnostic Test Radiology reviewed: Image reviewed, Reports reviewed Procedures - Immobilization Left Ankle Pre-Proc Neuro Vasc Exam: Normal Immobilizer type: José Miguel wrap, Post-op shoe Performed by: RN Post-Proc Neuro Vasc Exam: Normal Alignment checked and good: Yes Discharge - Discharge Clinical Impression: Left thigh pain Left ankle sprain Qualifiers: Encounter type: initial encounter Involved ligament of ankle: unspecified ligament Qualified Code(s): S93.402A - Sprain of unspecified ligament of left ankle, initial encounter Sprain of left foot Qualifiers: Encounter type: initial encounter Qualified Code(s): S93.602A - Unspecified sprain of left foot, initial encounter Condition: Stable Disposition: HOME, SELF-CARE Instructions: José Miguel Wrap ([facility]), Use of Crutches ([facility]), Ice & Elevation ([facility]), Sprain ([facility]), Sprained Ankle ([facility]) Additional Instructions: Return immediately for any new or worsening symptoms Followup with your primary care provider, call tomorrow to make a followup appointment Weightbearing as tolerated Follow-up with orthopedics for any persistent pain or problems Prescriptions: Tramadol HCl [Ultram 50 mg Tablet] 50 mg PO ASDIR PRN #12 tablet PRN Reason: Referrals: JALIL KITCHEN MD [Primary Care Provider] - Follow up as needed [facility] [Provider Group] - Follow up as needed
[2018-11-12] MEDS ORDERED: TRAMADOL HCL 50 MG TABLET PO ONE (16:44)
--- NOTE | 2018-11-12 16:56 | RADIOLOGY REPORT (SQ) ---
EXAM DESCRIPTION: FEMUR LEFT COMPLETED DATE/TIME: 11/12/2018 4:23 pm REASON FOR STUDY: fall COMPARISON: None. NUMBER OF VIEWS: Two views. TECHNIQUE: Two radiographic images acquired of the left femur to include hip and knee in at least on e projection. LIMITATIONS: None. FINDINGS: MINERALIZATION: Normal. BONES: No acute fracture. No worrisome bone lesions. SOFT TISSUES: No obvious swelling or foreign body. OTHER: No other significant finding. IMPRESSION: NO RADIOGRAPHIC EVIDENCE OF ACUTE INJURY. TECHNICAL DOCUMENTATION: JOB ID: [id number] [place]-72 2010 [employer]- All Rights Reserved Reading location - IP/workstation name: [email or web address]
--- NOTE | 2018-11-12 16:58 | RADIOLOGY REPORT (SQ) ---
EXAM DESCRIPTION: FOOT LEFT COMPLETE COMPLETED DATE/TIME: 11/12/2018 4:23 pm REASON FOR STUDY: fall COMPARISON: None. EXAM PARAMETERS: NUMBER OF VIEWS: Three views. TECHNIQUE: AP, lateral and oblique radiographic images acquired of the left foot. LIMITATIONS: None. FINDINGS: MINERALIZATION: Normal. BONES: No acute fracture or dislocation. No worrisome bone lesions. JOINTS: No effusion. SOFT TISSUES: No significant soft tissue swelling. No radiopaque foreign body. OTHER: No other significant finding. IMPRESSION: NO FRACTURE. TECHNICAL DOCUMENTATION: JOB ID: [id number] [place]-72 2010 [employer]- All Rights Reserved Reading location - IP/workstation name: [email or web address]
--- NOTE | 2018-11-12 16:59 | RADIOLOGY REPORT (SQ) ---
EXAM DESCRIPTION: ANKLE LEFT COMPLETE COMPLETED DATE/TIME: 11/12/2018 4:23 pm REASON FOR STUDY: fall COMPARISON: None. EXAM PARAMETERS: NUMBER OF VIEWS: Three views. TECHNIQUE: AP, lateral and oblique radiographic images acquired of the left ankle. LIMITATIONS: None. FINDINGS: MINERALIZATION: Normal. BONES: No acute fracture or dislocation. No worrisome bone lesions. JOINTS: No effusion. SOFT TISSUES: No significant soft tissue swelling. No radiopaque foreign body. OTHER: No other significant finding. IMPRESSION: NO FRACTURE. TECHNICAL DOCUMENTATION: JOB ID: [id number] [place]-72 2010 [employer]- All Rights Reserved Reading location - IP/workstation name: [email or web address]
[2018-11-12 17:31] VITALS: BP 119/65
== END 2018-11-12 17:31 | disposition home or self-care (01) ==
LOC: ER 15:18
DX: S93.402A Sprain of unspecified ligament of left ankle, initial encounter (principal); S93.602A Unspecified sprain of left foot, initial encounter; M79.652 Pain in left thigh; W01.0XXA Fall on same level from slipping, tripping and stumbling without subsequent striking against object, initial encounter; Y92.009 Unspecified place in unspecified non-institutional (private) residence as the place of occurrence of the external cause; I10 Essential (primary) hypertension
CPT/HCPCS: 99283

== ENCOUNTER 2018-12-09 10:05 | Emergency (ER) | payer OTHER ==
[2018-12-09] MEDS ORDERED: LOPERAMIDE HCL 2 MG CAPSULE PO ONE (10:34)
[2018-12-09] MEDS ORDERED: ONDANSETRON 4 MG TAB.RAPDIS PO ONE (10:34)
--- NOTE | 2018-12-09 10:47 | ER Document Report ---
ED Medical Screen (RME) - General Chief Complaint: Abdominal Pain Stated Complaint: SORE THROAT/FEVER/COUGH Time Seen by Provider: 12/09/18 10:31 Primary Care Provider: [facility] [Primary Care Provider] - Follow up as needed Notes: 63-year-old female patient complaining of cough, cold, chills, congestion, sore throat, diarrhea, fever since yesterday. She did have some vomiting that started just a little while ago. She has 3 grandchildren that were diagnosed with strep throat. I have greeted and performed a rapid initial assessment of this patient. A comprehensive ED assessment and evaluation of the patient, analysis of test results and completion of the medical decision making process will be conducted by additional ED providers. TRAVEL OUTSIDE OF THE [place] IN LAST 30 DAYS: No - Related Data Allergies/Adverse Reactions: chlorpheniramine [From Coricidin HBP] Allergy (Mild, Verified 12/09/18 10:24) dextromethorphan [From Coricidin HBP] Allergy (Mild, Verified 12/09/18 10:24) guaifenesin [From Coricidin HBP] Allergy (Mild, Verified 12/09/18 10:24) acetaminophen [From Tylenol] Allergy (Verified 12/09/18 10:24) aspirin Allergy (Verified 12/09/18 10:24) Past Medical History - Social History Chew tobacco use (# tins/day): No Frequency of alcohol use: None Drug Abuse: None - Past Medical History Cardiac Medical History: Reports: Hx Hypertension Pulmonary Medical History: Reports: Hx Bronchitis, Hx Pneumonia Neurological Medical History: Reports: Hx Migraine, Hx Seizures Renal/ Medical History: Reports: Hx Ovarian Cysts. Denies: Hx Peritoneal Dialysis GI Medical History: Reports: Hx Gastroesophageal Reflux Disease, Hx Hiatal Hernia, Hx Colonoscopy - Was not completed due to her waking up and having discomfort, Hx Endoscopy Musculoskeltal Medical History: Reports Hx Arthritis, Reports Hx Musculoskeletal Trauma - Fractured clavicle Traumatic Medical History: Reports: Hx Fractures - Clavicle as a child Past Surgical History: Reports: Hx Cholecystectomy, Hx Hysterectomy, Hx Nose Surgery - Immunizations Immunizations up to date: No Hx Diphtheria, Pertussis, Tetanus Vaccination: No History of Influenza Vaccine for 06/2017 - 11/2017 Season: No Physical Exam - Vital signs Vitals: Temp Pulse Resp BP Pulse Ox 98.2 F 95 16 145/84 H 100 12/09/18 10:18 12/09/18 10:18 12/09/18 10:18 12/09/18 10:18 12/09/18 10:18 Course - Vital Signs Vital signs: Temp Pulse Resp BP Pulse Ox 98.2 F 95 16 145/84 H 100 12/09/18 10:18 12/09/18 10:18 12/09/18 10:18 12/09/18 10:18 12/09/18 10:18 Doctor's Discharge - Discharge Referrals: [facility] [Primary Care Provider] - Follow up as needed
--- NOTE | 2018-12-09 11:14 | ER Document Report ---
ED General - General Chief Complaint: Abdominal Pain Stated Complaint: SORE THROAT/FEVER/COUGH Time Seen by Provider: 12/09/18 10:31 Primary Care Provider: [facility] [Primary Care Provider] - Follow up as needed TRAVEL OUTSIDE OF THE [place] IN LAST 30 DAYS: No - HPI Notes: Patient is a 63-year-old female with a history of hypertension and seizures who presents the emergency department complaining of cough, cold, chills, congestion, sore throat, diarrhea, subjective fever since yesterday. Pt states that she does have intermittent abd cramps. Patient states that her family was diagnosed with strep yesterday. She is otherwise eating and drinking without difficulties. She is urinating normally. Patient states that she has had a few episodes of watery diarrhea and one episode of vomiting today. No melena or hematochezia. She has no other concerns or complaints. Denies any headache, neck pain, chest pain, palpitations, syncope, shortness of breath, wheeze, dyspnea, urinary retention, dysuria, hematuria, or rash. - Related Data Allergies/Adverse Reactions: chlorpheniramine [From Coricidin HBP] Allergy (Mild, Verified 12/09/18 10:24) dextromethorphan [From Coricidin HBP] Allergy (Mild, Verified 12/09/18 10:24) guaifenesin [From Coricidin HBP] Allergy (Mild, Verified 12/09/18 10:24) acetaminophen [From Tylenol] Allergy (Verified 12/09/18 10:24) aspirin Allergy (Verified 12/09/18 10:24) Past Medical History - Social History Smoking Status: Never Smoker Chew tobacco use (# tins/day): No Frequency of alcohol use: None Drug Abuse: None Family History: Reviewed & Not Pertinent, CVA, DM, Hypertension, Other Patient has suicidal ideation: No Patient has homicidal ideation: No - Past Medical History Cardiac Medical History: Reports: Hx Hypertension Pulmonary Medical History: Reports: Hx Bronchitis, Hx Pneumonia Neurological Medical History: Reports: Hx Migraine, Hx Seizures Renal/ Medical History: Reports: Hx Ovarian Cysts. Denies: Hx Peritoneal Dialysis GI Medical History: Reports: Hx Gastroesophageal Reflux Disease, Hx Hiatal Hernia, Hx Colonoscopy - Was not completed due to her waking up and having discomfort, Hx Endoscopy Musculoskeletal Medical History: Reports Hx Arthritis, Reports Hx Musculoskeletal Trauma - Fractured clavicle Traumatic Medical History: Reports: Hx Fractures - Clavicle as a child Past Surgical History: Reports: Hx Cholecystectomy, Hx Hysterectomy, Hx Nose Surgery - Immunizations Immunizations up to date: No Hx Diphtheria, Pertussis, Tetanus Vaccination: No Review of Systems - Review of Systems -: Yes All other systems reviewed and negative Physical Exam - Vital signs Vitals: Temp Pulse Resp BP Pulse Ox 98.2 F 95 16 145/84 H 100 12/09/18 10:18 12/09/18 10:18 12/09/18 10:18 12/09/18 10:18 12/09/18 10:18 - Notes Notes: PHYSICAL EXAMINATION: GENERAL: Well-appearing, well-nourished and in no acute distress. A&Ox4. Answers questions appropriately. Moves comfortably w/o notable distress HEAD: Atraumatic, normocephalic. EYES: Pupils equal round and reactive to light, extraocular movements intact, sclera anicteric, conjunctiva are normal. ENT: EAC clear b/l. TM's intact b/l without erythema, fluid, or perforation. Nares patent and with clear discharge. oropharynx no erythema without exudates. No tonsilar hypertrophy with mild erythema no exudate. No palatine shift. Uvula midline. No tongue protrusion. No drooling, hoarseness, or airway compromise. Moist mucous membranes. No sinus tenderness. NECK: Normal range of motion, supple without lymphadenopathy. No rigidity/meningismus. LUNGS: Breath sounds clear to auscultation bilaterally and equal. No wheezes rales or rhonchi. No retractions HEART: Regular rate and rhythm without murmurs, rubs, gallops. ABDOMEN: Soft, nontender, nondistended abdomen. No guarding, no rebound. Normal bowel sounds present. No CVA tenderness bilaterally. Vidal neg. No tenderness at McBurney. NEUROLOGICAL: Normal speech, normal gait. PSYCH: Normal mood, normal affect. SKIN: Warm, Dry, normal turgor, no rashes or lesions noted. Course - Re-evaluation Re-evalutation: 12/09/18 11:52 Patient is an afebrile, well-hydrated, 63-year-old female who presents to the ED with influenza. Vitals are acceptable. PE is otherwise unremarkable. Rapid strep neg. Influenza +. No other labs or imaging warranted at this time based on H&P. Patient has no significant cardiopulmonary or immunocompromised medical conditions. Patient's lungs are clear to auscultation bilaterally without tachycardia, hypoxia, or tachypnea. Patient is tolerating p.o. without any difficulties. Thoroughly reviewed the risks, benefits, potential side effects, estimated cost without insurance with patient. After thorough review, patient declined Tamiflu at this time. Low suspicion for any meningitis, sepsis, peritonsillar/pharyngeal abscess, respiratory compromise, severe dehydration, or other emergent systemic condition at this time. Patient is aware this condition can change from initial presentation and she needs to monitor symptoms closely. Conservative measures otherwise for symptoms. Recheck with your PCM in 3-5 days. Return to the ED with any worsening/concerning symptoms otherwise as reviewed in discharge. Patient is in agreement. - Vital Signs Vital signs: Temp Pulse Resp BP Pulse Ox 98.2 F 95 16 145/84 H 100 12/09/18 10:18 12/09/18 10:18 12/09/18 10:18 12/09/18 10:18 12/09/18 10:18 Discharge - Discharge Clinical Impression: Influenza Condition: Stable Disposition: HOME, SELF-CARE Additional Instructions: Maintain adequate fluid intake Take meds as directed tylenol/ibuprofen as needed over the counter cold medication as needed for symptoms Humidified air may help Wash your hands regularly Wear a mask when coughing F/u: with your PCM in 3-5 days for a recheck Return to the ED with any fever, worsening pain, chest pain, palpitations, syncope, worsening NOVAK, neck pain/stiffness, shortness of breath, wheezing, drooling, trouble swallowing/breathing, abdominal pain, n/v/d, rash, or worsening/concerning symptoms otherwise. Prescriptions: Oseltamivir Phosphate [Tamiflu 75 mg Capsule] 75 mg PO BID #10 capsule Forms: Elevated Blood Pressure Referrals: [facility] [Primary Care Provider] - Follow up in 3-5 days
[2018-12-09 11:38] LABS: A TYPE INFLUENZA AG POSITIVE (NEGATIVE); B INFLUENZA AG NEGATIVE (NEGATIVE)
[2018-12-09 11:55] VITALS: BP 116/52
== END 2018-12-09 12:15 | disposition home or self-care (01) ==
LOC: ER 10:05
DX: J11.1 Influenza due to unidentified influenza virus with other respiratory manifestations (principal); R10.9 Unspecified abdominal pain; R50.9 Fever, unspecified; R19.7 Diarrhea, unspecified; I10 Essential (primary) hypertension; Z88.6 Allergy status to analgesic agent
CPT/HCPCS: 99283; 87070; 87880; 87804; S0119

== ENCOUNTER 2018-12-09 18:32 | Emergency (ER) | payer OTHER ==
[~2018-12-09 18:32] MED LIST: SUCCINYLCHOLINE CHLORIDE INJ 200 MG/10 ML VIAL ONE
[2018-12-09] MEDS ORDERED: LORAZEPAM INJ 2 MG/1 ML VIAL ONE ×2 (18:54→21:25)
[2018-12-09] MEDS ORDERED: LORAZEPAM INJ 2 MG/1 ML VIAL IV ONE ×2 (19:01→21:25)
[2018-12-09] MEDS ORDERED: NORMAL SALINE 1000 ML 1,000 ML IV ONE (19:02)
[2018-12-09 19:08] LABS: ABSOLUTE LYMPHOCYTES (AUTO) 0.6 10^3/uL (0.5-4.7); ABSOLUTE MONOCYTES (AUTO) 0.9 10^3/uL (0.1-1.4); ABSOLUTE NEUT (AUTO) 5.5 10^3/uL (1.7-8.2); BASOPHILS % (AUTO) 0.4 % (0-2); EOSINOPHILS % (AUTO) 0.2 % (0-6); HEMATOCRIT 35.1 % (36.0-47.0); LYMPHOCYTES % (AUTO) 8.3 % (13-45); MEAN CORPUSCULAR HEMOGLOBIN 28.6 pg (27.0-33.4); MEAN CORPUSCULAR VOLUME 84 fl (80-97); MONOCYTES % (AUTO) 12.9 % (3-13); PLATELET COUNT 232 10^3/uL (150-450); RED BLOOD COUNT 4.19 10^6/uL (3.72-5.28); RED CELL DISTRIBUTION WIDTH 14.8 % (11.5-14.0); SEGMENTED NEUTROPHILS % (AUTO) 78.2 % (42-78); TOTAL CELLS COUNTED % (AUTO) 100 %
[2018-12-09] MEDS ORDERED: LEVETIRACETAM 1000 MG/NACL-ISO 1,000 MG/100 ML RTUPB IV ONE (19:19)
--- NOTE | 2018-12-09 19:21 | ER Document Report ---
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 Episode witnessed (by whom): Yes Current seizure medications: Carbamazepine, Keppra Preceding symptoms/context: Recent illness/fever Character of seizure: Complete loss/conscious, Generalized shaking Post-ictal symptoms: Confusion Injuries: None Notes: Patient is a 63-year-old female brought to the emergency room by for complaints of seizure activity, patient has a history of seizure disorder and currently takes Keppra and Tegretol, she has had flulike symptoms over the past day or 2, and was diagnosed with influenza A with a positive test in the emergency room earlier today, was prescribed Tamiflu, was discharged home and was able to take 1 dose of Tamiflu, she had a seizure shortly thereafter, drove her to the emergency room and staff was able to get her out of the car in the front waiting area, at the time I saw her patient appeared to be actively seizing with her arms tightly held against her chest, she did appear to be having slight twitching, the seizure activity lasted less than a minute with patient had a long period of time before she started to speak coherently once again - Related Data Allergies/Adverse Reactions: chlorpheniramine [From Coricidin HBP] Allergy (Mild, Verified 12/09/18 10:24) dextromethorphan [From Coricidin HBP] Allergy (Mild, Verified 12/09/18 10:24) guaifenesin [From Coricidin HBP] Allergy (Mild, Verified 12/09/18 10:24) acetaminophen [From Tylenol] Allergy (Verified 12/09/18 10:24) aspirin Allergy (Verified 12/09/18 10:24) Past Medical History - General Information source: Relative - Social History Smoking Status: Unknown if Ever Smoked Family History: Reviewed & Not Pertinent, CVA, DM, Hypertension, Other Patient has suicidal ideation: No Patient has homicidal ideation: No - Past Medical History Cardiac Medical History: Reports: Hx Hypertension Pulmonary Medical History: Reports: Hx Bronchitis, Hx Pneumonia Neurological Medical History: Reports: Hx Migraine, Hx Seizures Renal/ Medical History: Reports: Hx Ovarian Cysts. Denies: Hx Peritoneal Dialysis GI Medical History: Reports: Hx Gastroesophageal Reflux Disease, Hx Hiatal Hernia, Hx Colonoscopy - Was not completed due to her waking up and having discomfort, Hx Endoscopy Musculoskeletal Medical History: Reports Hx Arthritis, Reports Hx Muscu loskeletal Trauma - Fractured clavicle Traumatic Medical History: Reports: Hx Fractures - Clavicle as a child Past Surgical History: Reports: Hx Cholecystectomy, Hx Hysterectomy, Hx Nose Surgery - Immunizations Immunizations up to date: No Hx Diphtheria, Pertussis, Tetanus Vaccination: No Review of Systems - Review of Systems Constitutional: See HPI EENT: See HPI Cardiovascular: No symptoms reported Respiratory: See HPI Gastrointestinal: No symptoms reported Genitourinary: No symptoms reported Female Genitourinary: No symptoms reported Musculoskeletal: No symptoms reported Skin: No symptoms reported Hematologic/Lymphatic: No symptoms reported Neurological/Psychological: See HPI -: Yes All other systems reviewed and negative Physical Exam - Vital signs Vitals: Resp Pulse Ox 17 96 12/09/18 18:45 12/09/18 18:45 Interpretation: Normal - General General appearance: Lethargic In distress: Moderate - HEENT Head: Normocephalic, Atraumatic - Respiratory Respiratory status: No respiratory distress Chest status: Nontender Breath sounds: Normal Chest palpation: Normal - Cardiovascular Rhythm: Regular - Abdominal Inspection: Normal - Back Back: Normal - Extremities General upper extremity: Normal inspection General lower extremity: Normal inspection - Neurological [place] Coma Scale Eye Opening: None [place] Coma Scale Verbal: None [place] Coma Scale Motor: Abnormal Flexion Josue Coma Scale Total: 5 - Skin Skin Temperature: Warm Skin Moisture: Diaphoretic Course - Re-evaluation Re-evalutation: 12/09/18 19:51 Patient becoming more coherent, as soon as she started waking up and speaking she mentioned that she was upset that her nightgown was cut off 12/09/18 21:00 Called to room as patient is having a seizure once again, vital signs are stable, she is maintaining her airway, however appears to be gagging as though she is trying to vomit after having the seizure Placed a call to [facility], requested to speak with the neurologist honeycomb decapper regarding transfer of patient for status epilepticus 12/09/18 21:07 Patient discussed with Oumou, advanced practitioner in the neurosurgical ICU at [facility], who accepts patient for transfer under Dr. Eden 12/09/18 21:59 Patient had another witnessed seizure in the emergency department, this is now for seizures in a row without any return to baseline mental status, decision was made to intubate patient to protect her airway in order to transfer her to tertiary care center for further evaluation and treatment - Vital Signs Vital signs: Temp Pulse Resp BP Pulse Ox 99.6 F 20 150/100 H 98 12/09/18 19:40 12/09/18 21:21 12/09/18 21:21 12/09/18 21:21 - Laboratory Result Diagrams: 12/09/18 18:54 12/09/18 18:54 Laboratory results interpreted by me: 12/09/18 12/09/18 18:54 18:54 Hct 35.1 L RDW 14.8 H Seg Neutrophils % 78.2 H Lymphocytes % 8.3 L Est GFR (Non-Af Amer) 59 L Alkaline Phosphatase 138 H - Diagnostic Test Radiology reviewed: Image reviewed, Reports reviewed Procedures - Intubation Orotracheal Time of Intubation: 21:30 Airway evaluation: Normal anatomy Mallampati Classification: Class 3 Medications: Succinylcholine, Diprivan Intubation method: Orotracheal Blade size: 3 Equipment used: Glidescope ETT size: 7.5 ETT secured at: Lips ETT secured at (cm): 22 Breath Sounds after Intubation: Equal End tidal CO2 confirmed: Yes Post Intubation Xray: Yes Intubation Complications: No complications Critical Care Note - Critical Care Note Total time excluding time spent on procedures (mins): 120 Comments: Patient is in status epilepticus Discharge - Discharge Clinical Impression: Status epilepticus, Influenza A Condition: Serious Disposition: [facility] Referrals: JALIL KITCHEN MD [NO LOCAL MD] - Follow up as needed
[2018-12-09 19:23] LABS: ALANINE AMINOTRANSFERASE 22 U/L (9-52); ALBUMIN 4.2 g/dL (3.5-5.0); ALKALINE PHOSPHATASE 138 U/L (38-126); ANION GAP 11 (5-19); ASPARTATE AMINO TRANSFERASE 36 U/L (14-36); BILIRUBIN,DIRECT 0.3 mg/dL (0.0-0.4); BILIRUBIN,TOTAL 0.4 mg/dL (0.2-1.3); BLOOD UREA NITROGEN 19 mg/dL (7-20); CALCIUM 9.7 mg/dL (8.4-10.2); CARBON DIOXIDE 26 mmol/L (22-30); CHLORIDE 101 mmol/L (98-107); GLUCOSE 105 mg/dL (75-110); POTASSIUM 3.9 mmol/L (3.6-5.0); SODIUM 137.7 mmol/L (137-145); TOTAL PROTEIN 8.1 g/dL (6.3-8.2)
[2018-12-09 19:25] LABS: ALCOHOL < 10 mg/dL (NONE DETECTED)
--- NOTE | 2018-12-09 19:35 | RADIOLOGY REPORT (SQ) ---
EXAM DESCRIPTION: CT HEAD WITHOUT COMPLETED DATE/TIME: 12/09/2018 7:14 pm REASON FOR STUDY: seizure COMPARISON: None. TECHNIQUE: Axial images acquired through the brain without intravenous contrast. Images reviewed wi th bone, brain and subdural windows. Images stored on PACS. All CT scanners at this facility use dose modulation, iterative reconstruction, and/or weight based d osing when appropriate to reduce radiation dose to as low as reasonably achievable (ALARA). [facility]: Dose Right [facility]: CareDose [facility]: Dose Right [facility]: Teradose 4D [facility]: Smart [employer] RADIATION DOSE: CT Rad equipment meets quality standard of care and radiation dose reduction techniq ues were employed. CTDIvol: 53.2 mGy. DLP: 991 mGy-cm. mGy. LIMITATIONS: None. FINDINGS: VENTRICLES: Normal size and contour. CEREBRUM: No masses. No hemorrhage. No midline shift. No evidence for acute infarction. Normal gra y/white matter differentiation. No areas of low density in the white matter. CEREBELLUM: No masses. No hemorrhage. No alteration of density. No evidence for acute infarction. EXTRAAXIAL SPACES: No fluid collections. No masses. ORBITS AND GLOBE: No intra- or extraconal masses. Normal contour of globe without masses. CALVARIUM: No fracture. PARANASAL SINUSES: No fluid or mucosal thickening. SOFT TISSUES: No mass or hematoma. OTHER: No other significant finding. IMPRESSION: No acute intracranial findings. EVIDENCE OF ACUTE STROKE: NO. COMMENT: Quality ID # [id number]: Final reports with documentation of one or more dose reduction techniques (e.g., Automated exposure control, adjustment of the mA and/or kV according to patient size, use of iterative reconstruction technique) TECHNICAL DOCUMENTATION: JOB ID: [id number] [place]-72 2010 [employer]- All Rights Reserved Reading location - IP/workstation name: [email or web address]
[2018-12-09] MEDS ORDERED: PROPOFOL 1,000 MG/100 ML INFUS..BTL IV ONE (21:24)
[2018-12-09] MEDS ORDERED: PROPOFOL INJ 200 MG/20 ML VIAL IV ONE (21:25)
[2018-12-09] MEDS: PROPOFOL INJ 200 MG/20 ML VIAL IV ONE ×2 (21:35→22:25)
[2018-12-09] MEDS: PROPOFOL 1,000 MG/100 ML INFUS..BTL IV PRN ×2 (21:39→22:18)
--- NOTE | 2018-12-09 22:20 | RADIOLOGY REPORT (SQ) ---
EXAM DESCRIPTION: XR CHEST 1 VIEW COMPLETED DATE/TME: 12/09/2018 21:40 CLINICAL HISTORY: 63 years, Female, intubation COMPARISON: None. NUMBER OF VIEWS: 1 TECHNIQUE: Portable chest LIMITATIONS: None. FINDINGS: Heart size is normal. Endotracheal tube with the tip approximately 3.5 cm above the nereyda. Enteric tube in place. Osteopenia. Lungs are clear. No pneumothorax IMPRESSION: Endotracheal and enteric tubes in place. Lungs are clear copyright 2011 [employer]- All Rights Reserved
[2018-12-09] MEDS ORDERED: SUCCINYLCHOLINE CHLORIDE INJ 200 MG/10 ML VIAL IV ONE (22:21)
[2018-12-09 22:47] VITALS: BP 123/85
[2018-12-09 23:12] LABS: APPEARANCE,URINE SLIGHTLY-CLOUDY; BILIRUBIN,URINE NEGATIVE (NEGATIVE); COLOR,URINE YELLOW; GLUCOSE, URINE NEGATIVE (NEGATIVE); KETONES,URINE NEGATIVE (NEGATIVE); LEUKOCYTE ESTERASE,URINE NEGATIVE (NEGATIVE); NITRITE,URINE NEGATIVE (NEGATIVE); PROTEIN,URINE NEGATIVE (NEGATIVE); URINE SPECIFIC GRAVITY 1.016; UROBILINOGEN,URINE NEGATIVE mg/dL (<2.0)
[2018-12-09 23:24] LABS: URINE AMPHETAMINES SCREEN NEGATIVE; URINE BARBITURATES SCREEN NEGATIVE; URINE BENZODIAZEPINES SCREEN NEGATIVE; URINE COCAINE SCREEN NEGATIVE; URINE MARIJUANA (THC) SCREEN NEGATIVE; URINE METHADONE SCREEN NEGATIVE; URINE PHENCYCLIDINE SCREEN NEGATIVE
== END 2018-12-09 22:20 | disposition short-term general hospital (02) ==
LOC: ER 18:32
DX: G40.901 Epilepsy, unspecified, not intractable, with status epilepticus (principal); J11.1 Influenza due to unidentified influenza virus with other respiratory manifestations; I10 Essential (primary) hypertension; Z90.49 Acquired absence of other specified parts of digestive tract; Z90.710 Acquired absence of both cervix and uterus
CPT/HCPCS: 96376; 99291; 99292; 96361; 51702; 96375; 96365; 36415; 80177; 80307 ×2; 83735; 80156; 85025; 80053; 81001; 71045; 70450; 94660; 31500; J2704 ×2; J2060; J0330; J7030; J1953

== ENCOUNTER → 2018-12-09 | Outpatient (CLI) | payer OTHER ==
[2018-12-09 09:41] LABS: ABSOLUTE BASOPHILS # (AUTO) 0.1 10^3/uL (0.0-0.2); ABSOLUTE LYMPHOCYTES (AUTO) 0.7 10^3/uL (0.5-4.7); ABSOLUTE MONOCYTES (AUTO) 0.5 10^3/uL (0.1-1.4); ABSOLUTE NEUT (AUTO) 5.6 10^3/uL (1.7-8.2); BASOPHILS % (AUTO) 0.8 % (0-2); EOSINOPHILS % (AUTO) 0.4 % (0-6); HEMATOCRIT 35.5 % (36.0-47.0); HEMOGLOBIN 12.3 g/dL (12.0-15.5); LYMPHOCYTES % (AUTO) 10.1 % (13-45); MEAN CORPUSCULAR HEMOGLOBIN 28.6 pg (27.0-33.4); MEAN CORPUSCULAR HGB CONC 34.5 g/dL (32.0-36.0); MEAN CORPUSCULAR VOLUME 83 fl (80-97); MONOCYTES % (AUTO) 6.7 % (3-13); PLATELET COUNT 206 10^3/uL (150-450); RED BLOOD COUNT 4.29 10^6/uL (3.72-5.28); RED CELL DISTRIBUTION WIDTH 14.7 % (11.5-14.0); TOTAL CELLS COUNTED % (AUTO) 100 %; WHITE BLOOD COUNT 6.9 10^3/uL (4.0-10.5)
[2018-12-09 10:00] LABS: CHOLESTEROL 199.61 mg/dL (0-200); TRIGLYCERIDES 58 mg/dL (<150)
[2018-12-09 10:11] LABS: DIRECT LDL 101 mg/dL (<100)
== END ==
LOC: CCC 08:48
DX: G40.89 Other seizures (principal); Z79.899 Other long term (current) drug therapy
CPT/HCPCS: 36415; 80061; 80156; 85025

== ENCOUNTER → 2019-02-07 | Outpatient (CLI) | payer OTHER ==
[2019-02-07 09:38] LABS: ABSOLUTE EOSINOPHILS # (AUTO) 0.1 10^3/uL (0.0-0.6); ABSOLUTE LYMPHOCYTES (AUTO) 1.5 10^3/uL (0.5-4.7); ABSOLUTE MONOCYTES (AUTO) 0.5 10^3/uL (0.1-1.4); ABSOLUTE NEUT (AUTO) 3.8 10^3/uL (1.7-8.2); BASOPHILS % (AUTO) 0.8 % (0-2); EOSINOPHILS % (AUTO) 1.2 % (0-6); HEMATOCRIT 34.6 % (36.0-47.0); HEMOGLOBIN 11.6 g/dL (12.0-15.5); LYMPHOCYTES % (AUTO) 25.6 % (13-45); MEAN CORPUSCULAR HEMOGLOBIN 27.5 pg (27.0-33.4); MEAN CORPUSCULAR HGB CONC 33.5 g/dL (32.0-36.0); MEAN CORPUSCULAR VOLUME 82 fl (80-97); MONOCYTES % (AUTO) 8.7 % (3-13); PLATELET COUNT 206 10^3/uL (150-450); RED BLOOD COUNT 4.22 10^6/uL (3.72-5.28); RED CELL DISTRIBUTION WIDTH 14.4 % (11.5-14.0); SEGMENTED NEUTROPHILS % (AUTO) 63.7 % (42-78); TOTAL CELLS COUNTED % (AUTO) 100 %
[2019-02-07 09:56] LABS: CHOLESTEROL 189.18 mg/dL (0-200); TRIGLYCERIDES 90 mg/dL (<150)
[2019-02-07 10:06] LABS: DIRECT LDL 102 mg/dL (<100)
== END ==
LOC: CCC 08:06
DX: G40.89 Other seizures (principal); Z79.899 Other long term (current) drug therapy
CPT/HCPCS: 36415; 80061; 80156; 85025

== ENCOUNTER → 2019-04-04 | Outpatient (CLI) | payer OTHER | LOC: OD 09:31 | DX: R07.0 Pain in throat (principal); Z20.818 Contact with and (suspected) exposure to other bacterial communicable diseases | CPT/HCPCS: 87070; 87880 ==

== ENCOUNTER → 2019-04-05 | Outpatient (CLI) | payer OTHER ==
--- NOTE | 2019-04-05 10:42 | WOMENS IMAGING REPORT ---
EXAM DESCRIPTION: PINK WARRIOR BILATERAL SCREEN COMPLETED DATE/TIME: 04/05/2019 8:59 am REASON FOR STUDY: Z12.31 ENCOUNTER FOR SCREENING MAMMOGRAM FOR MALIGNANT NEOPLASM OF BREAST Z12.31 ENCNTR SCREEN MAMMOGRAM FOR MALIGNANT NEOPLASM OF ISHAAN COMPARISON: [id number] EXAM PARAMETERS: Standard craniocaudal and mediolateral oblique views of each breast recorded using digital acquisition. Read with the assistance of CAD. .[facility] - [employer] System Admin Version 9.2 LIMITATIONS: None. FINDINGS: No suspicious masses, suspicious calcifications or architectural distortion. No areas of c oncern. IMPRESSION: Negative MAMMOGRAM. BIRADS 1 BREAST DENSITY: b. There are scattered areas of fibroglandular density. BIRAD: ASSESSMENT: 1 NEGATIVE RECOMMENDATION: ROUTINE SCREENING COMMENT: The patient has been notified of the results by letter per MQSA requirements. Additional no tification policies are in place for contacting patient with suspicious or incomplete findings. Quality ID #[id number]: The [employer] recommends an annual screening mammogram for women aged 40 years or over. This facility utilizes a reminder system to ensure that all patients receive reminder letters, and/or direct phone calls for appointments. This includes reminders for routine scr eening mammograms, diagnostic mammograms, or other Breast Imaging Interventions when appropriate. Th is patient will be placed in the appropriate reminder system. TECHNICAL DOCUMENTATION: FINDING NUMBER: (1) ASSESSMENT: (1) JOB ID: [id number] [employer]- All Rights Reserved Reading location - IP/workstation name: [email or web address]
== END ==
LOC: WI 10:32
DX: Z12.31 Encounter for screening mammogram for malignant neoplasm of breast (principal)
CPT/HCPCS: 77067

== ENCOUNTER 2019-05-11 08:38 | Emergency (ER) | payer OTHER ==
--- NOTE | 2019-05-11 10:00 | ER Document Report ---
HPI - HPI Patient complains to provider of: Sore throat Time Seen by Provider: 05/11/19 09:58 Onset: Yesterday Onset/Duration: Gradual, Waxing and waning Quality of pain: Achy Severity: Mild Pain Level: 2 Context: 63 yr old female pt, with the listed pmh, here presenting with sore throat for 2 days. patient states the pain is an 4/10 sharp achiness that increases with swallowing and decreases with rest. Patient states no acute respiratory distress. Patient states no difficulty swallowing or handling secretions. Patient denies any ear pain, cp, sob, fever, neck pain, vomiting, diarrhea, abd pain, vision changes, dizziness, rash, or headache. Patient states nothing is making the symptoms better and is here in the emergency department for symptom control. no recent antibiotics or steroids. no hx of asthma or diabetes. utd on shots. Patient denies any other complaints at this time. pt states positive family exposure to strep via swab and states her also has it. pt states families strep wasn't confirmed until culture came back positive for it as the initial swab in office was negative. states family is on abx and feeling better. - ROS Systems Reviewed and Negative: Yes All other systems reviewed and negative - to include 10 systems, unless mentioned in the hpi - REPRODUCTIVE Reproductive: DENIES: : Past Medical History - General Information source: Patient - Social History Smoking Status: Former Smoker Frequency of alcohol use: None Drug Abuse: None Lives with: Family, Spouse/Significant other Family History: CVA, DM, Hypertension, Other Patient has suicidal ideation: No Patient has homicidal ideation: No - Past Medical History Cardiac Medical History: Reports: Hx Hypertension Pulmonary Medical History: Reports: Hx Bronchitis, Hx Pneumonia Neurological Medical History: Reports: Hx Migraine, Hx Seizures Renal/ Medical History: Reports: Hx Ovarian Cysts. Denies: Hx Peritoneal Dialysis GI Medical History: Reports: Hx Gastroesophageal Reflux Disease, Hx Hiatal Hernia, Hx Colonoscopy - Was not completed due to her waking up and having discomfort, Hx Endoscopy Musculoskeletal Medical History: Reports Hx Arthritis, Reports Hx Musculoskeletal Trauma - Fractured clavicle Traumatic Medical History: Reports: Hx Fractures - Clavicle as a child Past Surgical History: Reports: Hx Cholecystectomy, Hx Hysterectomy, Hx Nose Surgery - Immunizations Immunizations up to date: Yes Vertical Provider Document - CONSTITUTIONAL Agree With Documented VS: Yes Exam Limitations: No Limitations General Appearance: No Apparent Distress Notes: Vital signs: All vital signs were reviewed per nursing notes. Gen. appearance: Nontoxic, patient of stated age, sitting comfortably in the bed. pleasant, middle aged female, smiling, speaking in full sentences, in no sign of pain or resp distress, at bedside Psychiatric: Alert and oriented x3, pleasant and very conversational, normal affect. Skin: Warm, pink, dry, normal turgor, no rashes. ENT: Normocephalic, atraumatic, pupils are equal and reactive to light, extraocular muscles intact, tympanic membranes normal, mucosal membranes moist, pink conjunctiva, there is moderate pharyngeal erythema and no tonsillar exudate or hypertrophy bilaterally. There are no signs of abscess. The uvula is midline. There is no submandibular harness. There is no trismus. There is no tenderness over the sternocleidomastoid or thyroid cartilage. no drooling, tripoding, or hot potato voice Neck: Supple, no tenderness, no lymphadenopathy. CV: Regular rate and rhythm, Lungs: Clear to auscultation bilaterally, no wheezes, symmetrical chest rise. Abdomen: Soft, nontender, nondistended, good bowel sounds, no rebound, rigidity, guarding, or peritoneal signs. No CVA tenderness bilaterally. This is a nonacute abdomen. No tenderness over McBurney's point. Back: no tenderness Extremities: Full rom, full strength, good pulses, normal gait, no swelling or ttp of extremities. 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 brisk cap refill. Neuro: Cranial nerves II through XII intact, normal speech, cerebellar fxn intact, motor and sensation intact - INFECTION CONTROL TRAVEL OUTSIDE OF THE [place] IN LAST 30 DAYS: No Course - Re-evaluation Re-evalutation: 05/11/19 09:59 Pt here for sore throat and uri sx since yest. pos hx of exposure to fam members with confirmed strep via culture and neg swab, requesting abx. pts rapid strep was neg. throat culture pending. will dc with pcn aida and advised will call with positive culture results and to hold off on abx for a few days and then start them if not feeling better or until culture results return if positive. advised sx care. otc cold/sore throat meds for any sx that she isn't allergic too and can tolerate. push fluids. salt water gargles. advised to f/u with pcp in 1-2 days. return for any worsening symptoms. vss. well appearing. satting well on ra . neurononfocal. pt understands and agrees to plan. On reexam, pt improved with tx listed. remained stable. nontoxic. well appearing. pain controlled. tolerating po. requesting to go home. Documentation achieved through voice recording which may lead to some occasional accidental typographical errors. Extensive efforts have been made to proof read documentation to make sure these are the least as possible. Category Date Time Status Rapid Strep [DIRECT STREP,RAPID] [MO] Stat Lab 05/11/19 09:15 Completed THROAT CULTURE [[facility]] Routine Lab 05/11/19 09:15 Completed - Vital Signs Vital signs: Temp Pulse Resp BP Pulse Ox 97.9 F 82 16 142/86 H 95 05/11/19 08:42 05/11/19 08:42 05/11/19 08:42 05/11/19 08:42 05/11/19 08:42 Category Date Time Status Rapid Strep [DIRECT STREP,RAPID] [MO] Stat Lab 05/11/19 09:15 Completed THROAT CULTURE [MC] Routine Lab 05/11/19 09:15 Completed Discharge - Discharge Clinical Impression: Pharyngitis Qualifiers: Pharyngitis/tonsillitis etiology: unspecified etiology Qualified Code(s): J02.9 - Acute pharyngitis, unspecified Condition: Good Disposition: HOME, SELF-CARE Instructions: Sore Throat ([facility]) Additional Instructions: Follow-up with your PCP in 1 to 2 days. Return for any worsening symptoms. take the medication as prescribed. salt water gargles. drink plenty of fluids. we will call you with any abnormal results that require change in plan of care. wait a few days before starting the antibiotics as discussed and then start them if you are not feeling any better. Prescriptions: Penicillin V Potassium [Penicillin Vk 500 mg Tablet] 500 mg PO BID #20 tablet Ref[facility]: [facility] [Primary Care Provider] - Follow up as needed
[2019-05-11 11:16] VITALS: BP 128/85
== END 2019-05-11 11:19 | disposition home or self-care (01) ==
LOC: ER 08:38
DX: J02.9 Acute pharyngitis, unspecified (principal); R13.10 Dysphagia, unspecified; R05 Cough; Z87.891 Personal history of nicotine dependence; I10 Essential (primary) hypertension
CPT/HCPCS: 87070; 87880; 99283

== ENCOUNTER 2019-06-22 23:04 | Emergency (ER) | payer OTHER ==
[2019-06-22] MEDS ORDERED: LEVETIRACETAM 500 MG in NORMAL SALINE 100 ML IV PRN (23:26)
[2019-06-22] MEDS ORDERED: LEVETIRACETAM 500 MG/NACL-ISO 500 MG/100 ML RTUPB IV ONE ×2 (23:41→23:56)
[2019-06-22 23:57] LABS: ABSOLUTE BASOPHILS # (AUTO) 0.1 10^3/uL (0.0-0.2); ABSOLUTE EOSINOPHILS # (AUTO) 0.1 10^3/uL (0.0-0.6); ABSOLUTE LYMPHOCYTES (AUTO) 1.6 10^3/uL (0.5-4.7); ABSOLUTE MONOCYTES (AUTO) 0.8 10^3/uL (0.1-1.4); ABSOLUTE NEUT (AUTO) 7.2 10^3/uL (1.7-8.2); EOSINOPHILS % (AUTO) 0.9 % (0-6); HEMATOCRIT 34.2 % (36.0-47.0); HEMOGLOBIN 11.5 g/dL (12.0-15.5); LYMPHOCYTES % (AUTO) 16.1 % (13-45); MEAN CORPUSCULAR HEMOGLOBIN 27.9 pg (27.0-33.4); MEAN CORPUSCULAR HGB CONC 33.7 g/dL (32.0-36.0); MEAN CORPUSCULAR VOLUME 83 fl (80-97); MONOCYTES % (AUTO) 8.3 % (3-13); PLATELET COUNT 216 10^3/uL (150-450); RED BLOOD COUNT 4.13 10^6/uL (3.72-5.28); RED CELL DISTRIBUTION WIDTH 14.1 % (11.5-14.0); SEGMENTED NEUTROPHILS % (AUTO) 73.7 % (42-78); TOTAL CELLS COUNTED % (AUTO) 100 %; WHITE BLOOD COUNT 9.7 10^3/uL (4.0-10.5)
[2019-06-23 00:11] LABS: ALKALINE PHOSPHATASE 120 U/L (38-126); ANION GAP 9 (5-19); ASPARTATE AMINO TRANSFERASE 20 U/L (14-36); BILIRUBIN,DIRECT 0.2 mg/dL (0.0-0.4); BILIRUBIN,TOTAL 0.3 mg/dL (0.2-1.3); BLOOD UREA NITROGEN 22 mg/dL (7-20); CALCIUM 9.1 mg/dL (8.4-10.2); CARBON DIOXIDE 25 mmol/L (22-30); CHLORIDE 103 mmol/L (98-107); GLUCOSE 113 mg/dL (75-110); POTASSIUM 3.9 mmol/L (3.6-5.0); TOTAL PROTEIN 7.5 g/dL (6.3-8.2)
--- NOTE | 2019-06-23 00:22 | RADIOLOGY REPORT (SQ) ---
EXAM DESCRIPTION: CT HEAD WITHOUT IV CONTRAST COMPLETED DATE/TME: 06/22/2019 00:00 EXAM DESCRIPTION: CT of the head without contrast CLINICAL HISTORY: SEIZURE? COMPARISON: None available TECHNIQUE: Axial CT of the head obtained from the skull apex to the skull base without contrast. FINDINGS: No acute intracranial hemorrhage identified. No mass, mass effect, shift of the midline, abnormal extra-axial fluid collection or CT evidence of acute ischemic change identified. The ventricular system and sulcal spaces are mildly enlarged compatible with mild cerebral atrophy. Scattered areas of hypodensity throughout the supratentorial white matter are nonspecific and may be related to chronic small vessel ischemic change. The visualized paranasal sinuses and the mastoids are clear. No skull fracture identified. Visualized orbits and globes are unremarkable. Atherosclerotic calcification of the intracranial internal carotid arteries. DLP:1043.77 mGy-cm IMPRESSION: 1. No acute intracranial abnormality by CT criteria. This exam was performed according to our departmental dose-optimization program, which includes automated exposure control, adjustment of the mA and/or kV according to patient size and/or use of iterative reconstruction technique.
--- NOTE | 2019-06-23 02:21 | RADIOLOGY REPORT (SQ) ---
CLINICAL HISTORY: Chest pain COMPARISON: None. TECHNIQUE: XR CHEST 1 VIEW 06/23/2019 1:34 AM CDT FINDINGS: Cardiac silhouette is normal in size. Lungs are clear without consolidation, atelectasis, mass or edema. There is no pleural effusion. There is no pneumothorax. There are no acute osseous findings. IMPRESSION: Clear lungs.
--- NOTE | 2019-06-23 02:42 | ER Document Report ---
ED General - General Chief Complaint: Seizure Stated Complaint: SEIZURES Time Seen by Provider: 06/22/19 23:18 Primary Care Provider: [facility] [Primary Care Provider] - Follow up as needed Mode of Arrival: Medic Information source: Relative, Emergency Med Personnel TRAVEL OUTSIDE OF THE [place] IN LAST 30 DAYS: No - HPI Notes: Patient is a 63-year-old female history of seizures currently on Keppra and Tegretol presents to the emergency department with report from her that the patient was significantly stressed today related to her sister having open heart surgery, and she was shaking and anxious at home and EMS was called and she had what appeared to be seizure activity noted by EMS. EMS gave the patient 5 mg of IM Versed, followed by an additional 5 mg of IV Versed before the patient's shaking seemed to stop. Blood sugar was normal and other vital signs were normal. There is no incontinence or tongue biting noted. According to family there was no fall or head injury or neck injury or back injury. There is been no recent cough or fever. The patient was late taking her Keppra today. Review of old records shows previous admission due to recurrent seizures, although the patient has also had seizures and been able to go home. Patient arrives with a similar presentation as described prior with both arms and extreme flexion held tight to her body but both legs being loose. When I opened the patient's eyes she was trying to hold the shot and then would look away from me, raising a question of confabulation versus conversion reaction. Likewise I was able to extend her arm and placed blood pressure cuff on. She held the arm completely still until the blood pressure cuff was removed and then gradually drip back up into flexion and held it stiff again, also raising a question of confabulation versus conversion reaction. - Related Data Allergies/Adverse Reactions: chlorpheniramine [From Coricidin HBP] Allergy (Mild, Verified 05/11/19 08:39) dextromethorphan [From Coricidin HBP] Allergy (Mild, Verified 05/11/19 08:39) guaifenesin [From Coricidin HBP] Allergy (Mild, Verified 05/11/19 08:39) acetaminophen [From Tylenol] Allergy (Verified 05/11/19 08:39) aspirin Allergy (Verified 05/11/19 08:39) Past Medical History - General Information source: Relative Cannot obtain history due to: Altered mental status - Social History Smoking Status: Never Smoker Chew tobacco use (# tins/day): No Frequency of alcohol use: None Drug Abuse: None Lives with: Family Family History: CVA, DM, Hypertension, Other Patient has suicidal ideation: No Patient has homicidal ideation: No - Past Medical History Cardiac Medical History: Reports: Hx Hypertension Pulmonary Medical History: Reports: Hx Bronchitis, Hx Pneumonia Neurological Medical History: Reports: Hx Migraine, Hx Seizures Renal/ Medical History: Reports: Hx Ovarian Cysts. Denies: Hx Peritoneal Dialysis GI Medical History: Reports: Hx Gastroesophageal Reflux Disease, Hx Hiatal Hernia, Hx Colonoscopy - Was not completed due to her waking up and having discomfort, Hx Endoscopy Musculoskeletal Medical History: Reports Hx Arthritis, Reports Hx Musculoskeletal Trauma - Fractured clavicle Traumatic Medical History: Reports: Hx Fractures - Clavicle as a child Past Surgical History: Reports: Hx Cholecystectomy, Hx Hysterectomy, Hx Nose Surgery - Immunizations Immunizations up to date: Yes Hx Diphtheria, Pertussis, Tetanus Vaccination: No Review of Systems - Review of Systems -: Yes All other systems reviewed and negative Physical Exam - Vital signs Vitals: Resp Pulse Ox 22 H 98 06/22/19 23:09 06/22/19 23:09 - Notes Notes: PHYSICAL EXAMINATION: GENERAL: well-nourished, somnolent but arousable to painful stimuli HEAD: Atraumatic, normocephalic. EYES: Pupils equal round and reactive to light, extraocular movements intact, conjunctiva are normal. ENT: Nares patent, oropharynx clear without exudates. Moist mucous membranes. NECK: Normal range of motion, supple without lymphadenopathy LUNGS: Breath sounds clear to auscultation bilaterally and equal. No wheezes rales or rhonchi. HEART: Regular rate and rhythm without murmurs ABDOMEN: Soft, nontender, nondistended abdomen. No guarding, no rebound. No masses appreciated. Female : deferred Musculoskeletal: Normal range of motion, no pitting or edema. No cyanosis. NEUROLOGICAL: Reflexes are completely normal. The patient holds her arms in flexion and her legs are loose. She is holding her eyes closed very tightly, but when I pry them open she looks away from me. No focal unilateral motor deficit noted. Patient seems to respond to painful stimuli uniformly. PSYCH: Question anxiety. Patient is nonverbal. SKIN: Warm, Dry, normal turgor, no rashes or lesions noted. Course - Re-evaluation Re-evalutation: 06/23/19 02:[address] was negative and lab studies showed no significant abnormality. Bicarb level was normal, suggesting against a seizure. The patient likewise showed no incontinence or tongue biting. Patient was given IV Keppra 500 mg, in the event that she was subtherapeutic, as a Keppra level and take 2 to 4 days to come back. Patient was watched on the security monitor and had stable blood pressure and stable pulses and no ectopy. Patient gradually was more awake but she still was minimally conversant. She described feeling somewhat short of breath and according to family had reported some chest pain previously. Chest x-ray is ordered which is pending. Patient will need to more appropriately awaken for more complete evaluation and to ensure stability for potential discharge. She may need something for anxi ety. Care turned over to Dr. Estrella at 0230am. 06/23/19 02:42 - Vital Signs Vital signs: Temp Pulse Resp BP Pulse Ox 96.8 F L 27 H 132/79 H 99 06/22/19 23:37 06/23/19 01:31 06/23/19 01:31 06/23/19 01:31 - Laboratory Result Diagrams: 06/22/19 23:48 06/22/19 23:48 Laboratory results interpreted by me: 06/22/19 06/22/19 23:48 23:48 Hgb 11.5 L Hct 34.2 L RDW 14.1 H Sodium 136.8 L BUN 22 H Glucose 113 H - EKG Interpretation by Id EKG shows normal: Sinus rhythm Additional EKG results interpreted by me: 06/23/19 02:42 EKG is interpreted by ok showed normal sinus rhythm heart rate of 82. There is no gross evidence for acute VT or ischemia. It is also notable that patient held completely still for her EKG. Critical Care Note - Critical Care Note Total time excluding time spent on procedures (mins): 34 Discharge - Discharge Clinical Impression: Seizure Disposition: OTHER Referrals: [facility] [Primary Care Provider] - Follow up as needed
[2019-06-23 03:50] LABS: APPEARANCE,URINE CLEAR; BILIRUBIN,URINE NEGATIVE (NEGATIVE); COLOR,URINE YELLOW; GLUCOSE, URINE NEGATIVE (NEGATIVE); KETONES,URINE NEGATIVE (NEGATIVE); LEUKOCYTE ESTERASE,URINE NEGATIVE (NEGATIVE); NITRITE,URINE NEGATIVE (NEGATIVE); PROTEIN,URINE NEGATIVE (NEGATIVE); URINE SPECIFIC GRAVITY 1.018; UROBILINOGEN,URINE NEGATIVE mg/dL (<2.0)
--- NOTE | 2019-06-23 04:02 | ER Document Report ---
Doctor's Note Notes: 06/23/19 04:00 I assumed care of this patient from Dr. Fry and I received pending reevaluation with a plan to discharge if no further seizure-like activity. Please see his note for full history and physical. Briefly, this is a 63-year-old female with a history of seizures who presented with seizure-like activity. Evaluation was suggestive of confabulation versus true seizure. No fever reported. Patient evaluated. She is awake and alert. Nonfocal neurologic exam. She complains of pain in her right forearm. Labs and imaging reviewed and discussed with patient and . Follow-up discussed. She is stable for discharge. 06/23/19 04:06
[2019-06-23 04:07] VITALS: BP 96/67
--- NOTE | 2019-06-23 13:39 | EKG REPORT ---
SEVERITY:- ABNORMAL ECG - SINUS RHYTHM NONSPECIFIC T ABNORMALITIES, LATERAL LEADS : Confirmed by: Milena Trevino MD 23-Jun-2019 13:38:57
== END 2019-06-23 04:17 | disposition home or self-care (01) ==
LOC: ER 23:04
DX: R56.9 Unspecified convulsions (principal); F41.9 Anxiety disorder, unspecified; I10 Essential (primary) hypertension; Z90.49 Acquired absence of other specified parts of digestive tract; Z90.710 Acquired absence of both cervix and uterus
CPT/HCPCS: 93005; 36415; 80177; 83735; 80156; 85025; 80053; 81001; 71045; 70450; 93010; J1953

== ENCOUNTER 2019-07-19 09:10 | Observation (INO) | payer OTHER ==
[2019-07-19 10:01] LABS: ABSOLUTE BASOPHILS # (AUTO) 0.1 10^3/uL (0.0-0.2); ABSOLUTE EOSINOPHILS # (AUTO) 0.1 10^3/uL (0.0-0.6); ABSOLUTE LYMPHOCYTES (AUTO) 1.4 10^3/uL (0.5-4.7); ABSOLUTE MONOCYTES (AUTO) 0.6 10^3/uL (0.1-1.4); ABSOLUTE NEUT (AUTO) 3.7 10^3/uL (1.7-8.2); HEMATOCRIT 36.1 % (36.0-47.0); HEMOGLOBIN 12.4 g/dL (12.0-15.5); LYMPHOCYTES % (AUTO) 24.8 % (13-45); MEAN CORPUSCULAR HEMOGLOBIN 28.4 pg (27.0-33.4); MEAN CORPUSCULAR HGB CONC 34.4 g/dL (32.0-36.0); MEAN CORPUSCULAR VOLUME 83 fl (80-97); MONOCYTES % (AUTO) 9.9 % (3-13); PLATELET COUNT 241 10^3/uL (150-450); RED BLOOD COUNT 4.38 10^6/uL (3.72-5.28); RED CELL DISTRIBUTION WIDTH 14.5 % (11.5-14.0); SEGMENTED NEUTROPHILS % (AUTO) 63.3 % (42-78); TOTAL CELLS COUNTED % (AUTO) 100 %; WHITE BLOOD COUNT 5.8 10^3/uL (4.0-10.5)
[2019-07-19 10:15] LABS: ALBUMIN 4.3 g/dL (3.5-5.0); ALKALINE PHOSPHATASE 124 U/L (38-126); ANION GAP 11 (5-19); ASPARTATE AMINO TRANSFERASE 23 U/L (14-36); BILIRUBIN,DIRECT 0.1 mg/dL (0.0-0.4); BILIRUBIN,TOTAL 0.4 mg/dL (0.2-1.3); BLOOD UREA NITROGEN 16 mg/dL (7-20); CALCIUM 9.4 mg/dL (8.4-10.2); CARBON DIOXIDE 23 mmol/L (22-30); CHLORIDE 105 mmol/L (98-107); CREATINE KINASE 47 U/L (30-135); GLUCOSE 104 mg/dL (75-110); TOTAL PROTEIN 8.1 g/dL (6.3-8.2)
[2019-07-19 10:27] LABS: CREATINE KINASE MB 0.26 ng/mL (<4.55)
[2019-07-19 10:28] LABS: TROPONIN I < 0.012 ng/mL
[2019-07-19] MEDS ORDERED: MAG HYDROX/AL HYDROX/SIMETH SUSP 30 ML UDCUP PO ONE ×2 (11:17→11:39)
[2019-07-19] MEDS ORDERED: LIDOCAINE 2% VISCOUS SOLN 20 ML UDCUP PO ONE ×2 (11:18→11:39)
[2019-07-19] MEDS ORDERED: METOCLOPRAMIDE HCL ORAL SOLN 10 MG/10 ML UDCUP PO ONE ×2 (11:19→11:39)
--- NOTE | 2019-07-19 11:41 | ER Document Report ---
ED Medical Screen (RME) - General Chief Complaint: Chest Pain Stated Complaint: CHEST PAIN Primary Care Provider: [facility] [Primary Care Provider] - Follow up as needed Mode of Arrival: Wheelchair Information source: Patient Notes: 63-year-old female with history of reflux presents the morning with complaints of chest heaviness going down her left arm. Reports that happened at around 7:00 this am. She did take [id number] meds for reflux did not help her symptoms. No complaints or history of cardiac disease but reports history of seizures htn. I have greeted and performed a rapid initial assessment of this patient. A comprehensive ED assessment and evaluation of the patient, analysis of test results and completion of the medical decision making process will be conducted by additional ED providers. Dictation of this chart was performed using voice recognition software; therefore, there may be some unintended grammatical errors. TRAVEL OUTSIDE OF THE [place] IN LAST 30 DAYS: No - Related Data Allergies/Adverse Reactions: chlorpheniramine [From Coricidin HBP] Allergy (Mild, Verified 05/11/19 08:39) dextromethorphan [From Coricidin HBP] Allergy (Mild, Verified 05/11/19 08:39) guaifenesin [From Coricidin HBP] Allergy (Mild, Verified 05/11/19 08:39) acetaminophen [From Tylenol] Allergy (Verified 05/11/19 08:39) aspirin Allergy (Verified 05/11/19 08:39) Past Medical History - Social History Chew tobacco use (# tins/day): No Frequency of alcohol use: None Drug Abuse: None - Past Medical History Cardiac Medical History: Reports: Hx Hypertension Pulmonary Medical History: Reports: Hx Bronchitis, Hx Pneumonia Neurological Medical History: Reports: Hx Migraine, Hx Seizures Renal/ Medical History: Reports: Hx Ovarian Cysts. Denies: Hx Peritoneal Dialysis GI Medical History: Reports: Hx Gastroesophageal Reflux Disease, Hx Hiatal Hernia, Hx Colonoscopy - Was not completed due to her waking up and having discomfort, Hx Endoscopy Musculoskeltal Medical History: Reports Hx Arthritis, Reports Hx Musculoskeletal Trauma - Fractured clavicle Traumatic Medical History: Reports: Hx Fractures - Clavicle as a child Past Surgical History: Reports: Hx Cholecystectomy, Hx Hysterectomy, Hx Nose Surgery - Immunizations Immunizations up to date: Yes Hx Diphtheria, Pertussis, Tetanus Vaccination: No Physical Exam - Vital signs Vitals: Temp Pulse Resp BP Pulse Ox 98.1 F 90 16 116/81 97 07/19/19 09:35 07/19/19 09:35 07/19/19 09:35 07/19/19 09:35 07/19/19 09:35 Course - Vital Signs Vital signs: Temp Pulse Resp BP Pulse Ox 98.1 F 90 16 116/81 97 07/19/19 09:35 07/19/19 09:35 07/19/19 09:35 07/19/19 09:35 07/19/19 09:35 - Laboratory Result Diagrams: 07/19/19 07:43 07/19/19 07:43 Laboratory results interpreted by me: 07/19/19 07:43 RDW 14.5 H Doctor's Discharge - Discharge Referrals: [facility] [Primary Care Provider] - Follow up as needed
--- NOTE | 2019-07-19 12:32 | RADIOLOGY REPORT (SQ) ---
EXAM DESCRIPTION: CHEST 2 VIEWS COMPLETED DATE/TIME: 07/19/2019 12:18 pm REASON FOR STUDY: cp COMPARISON: 06/23/2019 EXAM PARAMETERS: NUMBER OF VIEWS: two views TECHNIQUE: Digital Frontal and Lateral radiographic views of the chest acquired. RADIATION DOSE: NA LIMITATIONS: none FINDINGS: LUNGS AND PLEURA: No opacities, masses or pneumothorax. No pleural effusion. Mild hyperin flation with increased AP diameter. Biapical pleural thickening. MEDIASTINUM AND HILAR STRUCTURES: No masses or contour abnormalities. HEART AND VASCULAR STRUCTURES: Heart normal size. No evidence for failure. BONES: No acute findings. HARDWARE: Prior cholecystectomy. OTHER: No other significant finding. IMPRESSION: Emphysematous change without evidence of acute cardiopulmonary process. TECHNICAL DOCUMENTATION: JOB ID: [id number] [employer]- All Rights Reserved Reading location - IP/workstation name: [email or web address]
--- NOTE | 2019-07-19 12:59 | EKG REPORT ---
SEVERITY:- NORMAL ECG - SINUS RHYTHM : Confirmed by: Tony Thibodeaux MD 19-Jul-2019 12:57:51
--- NOTE | 2019-07-19 13:33 | ER Document Report ---
ED General - General Chief Complaint: Chest Pain Stated Complaint: CHEST PAIN Time Seen by Provider: 07/19/19 11:53 Primary Care Provider: [facility] [Primary Care Provider] - Follow up as needed Mode of Arrival: Wheelchair TRAVEL OUTSIDE OF THE [place] IN LAST 30 DAYS: No - HPI Notes: Patient presents with midsternal pressure chest pain that started approximately 6:30 AM today. She states the pain radiated down her left arm. She is parviz nued to have mild pressure in her chest but it is subsided. She is not taking any aspirin. She does have a history of hypertension and seizures. She has been medically compliant with her medications. No recent cough congestion fevers or illnesses. She has not experienced this type of symptoms before belching or history of acid reflux. - Related Data Allergies/Adverse Reactions: chlorpheniramine [From Coricidin HBP] Allergy (Mild, Verified 05/11/19 08:39) dextromethorphan [From Coricidin HBP] Allergy (Mild, Verified 05/11/19 08:39) guaifenesin [From Coricidin HBP] Allergy (Mild, Verified 05/11/19 08:39) acetaminophen [From Tylenol] Allergy (Verified 05/11/19 08:39) aspirin Allergy (Verified 05/11/19 08:39) Past Medical History - General Information source: Patient - Social History Smoking Status: Never Smoker Chew tobacco use (# tins/day): No Frequency of alcohol use: None Drug Abuse: None Family History: CVA, DM, Hypertension, Other Patient has suicidal ideation: No Patient has homicidal ideation: No - Past Medical History Cardiac Medical History: Reports: Hx Hypertension Pulmonary Medical History: Reports: Hx Bronchitis, Hx Pneumonia Neurological Medical History: Reports: Hx Migraine, Hx Seizures Renal/ Medical History: Reports: Hx Ovarian Cysts. Denies: Hx Peritoneal Dialysis GI Medical History: Reports: Hx Gastroesophageal Reflux Disease, Hx Hiatal Hernia, Hx Colonoscopy - Was not completed due to her waking up and having discomfort, Hx Endoscopy Musculoskeletal Medical History: Reports Hx Arthritis, Reports Hx Musculoskeletal Trauma - Fractured clavicle Traumatic Medical History: Reports: Hx Fractures - Clavicle as a child Past Surgical History: Reports: Hx Cholecystectomy, Hx Hysterectomy, Hx Nose Surgery - Immunizations Immunizations up to date: Yes Hx Diphtheria, Pertussis, Tetanus Vaccination: No Review of Systems - Review of Systems Constitutional: No symptoms reported EENT: No symptoms reported Cardiovascular: See HPI Respiratory: No symptoms reported Gastrointestinal: No symptoms reported Genitourinary: No symptoms reported Female Genitourinary: No symptoms reported Musculoskeletal: No symptoms reported Skin: No symptoms reported Hematologic/Lymphatic: No symptoms reported Neurological/Psychological: No symptoms reported Physical Exam - Vital signs Vitals: Temp Pulse Resp BP Pulse Ox 98.1 F 90 16 116/81 97 07/19/19 09:35 07/19/19 09:35 07/19/19 09:35 07/19/19 09:35 07/19/19 09:35 - General General appearance: Appears well, Alert - HEENT Head: Normocephalic, Atraumatic Eyes: Normal Conjunctiva: Normal Extraocular movements intact: Yes Pupils: PERRL - Respiratory Respiratory status: No respiratory distress Chest status: Nontender Breath sounds: Normal Chest palpation: Normal - Cardiovascular Rhythm: Regular Heart sounds: Normal auscultation Murmur: No - Abdominal Inspection: Normal Distension: No distension Bowel sounds: Normal Tenderness: Nontender - Back Back: Normal, Nontender - Neurological Neuro grossly intact: Yes Cognition: Normal Orientation: AAOx4 Course - Vital Signs Vital signs: Temp Pulse Resp BP Pulse Ox 98.1 F 90 16 116/81 99 07/19/19 09:35 07/19/19 09:35 07/19/19 09:35 07/19/19 09:35 07/19/19 12:28 - Laboratory Result Diagrams: 07/19/19 07:43 07/19/19 07:43 Laboratory results interpreted by me: 07/19/19 07:43 RDW 14.5 H - Diagnostic Test Radiology reviewed: Reports reviewed - EKG Interpretation by [place] EKG shows normal: Sinus rhythm Rate: Normal Rhythm: NSR Discharge - Discharge Clinical Impression: Chest pain Qualifiers: Chest pain type: unspecified Qualified Code(s): R07.9 - Chest pain, unspecified Condition: Good Disposition: ADMITTED OBSERVATION Admitting Provider: Avel (Hospitalist) Unit Admitted: Telemetry Referrals: [facility] [Primary Care Provider] - Follow up as needed
[2019-07-19] MEDS ORDERED: ASPIRIN 325 MG TABLET PO ONE (13:43)
--- NOTE | 2019-07-19 15:02 | PDOC H&P ---
History of Present Illness Admission Date/PCP: 07/19/19 13:50 [facility] History of Present Illness: CAMILLA THOMAS is a 63 year old female past medical history of hypertension, seizure disorder, presenting to ED complaining of chest pain. Chest pain started around 8 AM while patient was resting at home, started on the right side, pressure-like, 3/5 in intensity, constant, radiating to left arm, worse with movement, no alleviating factors identified, accompanied with diaph oresis. Denies any history of previous CAD, recent travel, recent URI, cough, nausea, vomiting, fever, chills, abdominal pain, diarrhea, constipation, urinary symptoms, weakness, weight changes, orthopnea, dyspnea, paroxysmal nocturnal dyspnea. Patient's chest pain resolved after she was given Maalox and aspirin in the hospital. EKG, troponins, vitals, CBC and CMP al negative however due to patient's risk factor of age and hypertension hospital was consulted for further management. Past Medical History Cardiac Medical History: Reports: Hypertension Pulmonary Medical History: Reports: Bronchitis, Pneumonia Neurological Medical History: Reports: Migraine, Seizures GI Medical History: Reports: Gastroesophageal Reflux Disease, Hiatal Hernia Musculoskeltal Medical History: Reports: Arthritis Past Surgical History Past Surgical History: Reports: Cholecystectomy, Hysterectomy Social History Smoking Status: Never Smoker Electronic Cigarette use?: No Frequency of Alcohol Use: None Hx Recreational Drug Use: No Hx Prescription Drug Abuse: No Family History Family History: CVA, DM, Hypertension, Other Parental Family History Reviewed: Yes Children Family History Reviewed: Yes Sibling(s) Family History Reviewed.: Yes Medication/Allergy Home Medications: Amlodipine Besylate [Norvasc 10 mg Tablet] 10 mg PO DAILY 08/31/17 Lisinopril/Hydrochlorothiazide [Lisinopril-Hctz 20-12.5 mg Tab] 1 each PO DAILY 08/31/17 Omeprazole 40 mg PO BID 08/31/17 Albuterol Sulfate [Proventil Hfa] 1 puff PO Q6HP PRN 07/19/19 Albuterol Sulfate [Ventolin 0.083% Neb 2.5 mg/3 mL Ampul] 2.5 mg NEB RTQ6HP PRN 07/19/19 Carbamazepine [Tegretol Xr 100 mg Tab.sr] 300 mg PO Q12 07/19/19 Levetiracetam 750 mg PO Q12 07/19/19 Tizanidine HCl 4 mg PO Q8HP PRN MDD LAST FILLED 09/02 FOR 60 TABS 07/19/19 Allergies/Adverse Reactions: chlorpheniramine [From Coricidin HBP] Allergy (Mild, Verified 07/19/19 13:43) dextromethorphan [From Coricidin HBP] Allergy (Mild, Verified 07/19/19 13:43) guaifenesin [From Coricidin HBP] Allergy (Mild, Verified 07/19/19 13:43) acetaminophen [From Tylenol] Allergy (Verified 07/19/19 13:43) aspirin Allergy (Verified 07/19/19 13:43) Physical Exam Vital Signs: Temp Pulse Resp BP Pulse Ox 98.1 F 90 41 H 125/84 99 07/19/19 09:35 07/19/19 09:35 07/19/19 14:01 07/19/19 14:01 07/19/19 12:28 Intake & Output 07/18/19 07/19/19 07/20/19 06:59 06:59 06:59 Weight 84.09 kg General appearance: PRESENT: no acute distress, well-developed, well-nourished Head exam: PRESENT: atraumatic, normocephalic Eye exam: PRESENT: conjunctiva pink, EOMI, PERRLA. ABSENT: scleral icterus Ear exam: PRESENT: normal external ear exam Mouth exam: PRESENT: moist, tongue midline Neck exam: ABSENT: carotid bruit, JVD, lymphadenopathy, thyromegaly Respiratory exam: PRESENT: clear to auscultation rohini. ABSENT: rales, rhonchi, wheezes Cardiovascular exam: PRESENT: RRR, other - Diffuse chest TTP. ABSENT: diastolic murmur, rubs, systolic murmur Pulses: PRESENT: normal dorsalis pedis pul Vascular exam: PRESENT: normal capillary refill GI/Abdominal exam: PRESENT: normal bowel sounds, soft. ABSENT: distended, guarding, mass, organolmegaly, rebound, tenderness Rectal exam: PRESENT: deferred Extremities exam: PRESENT: full ROM. ABSENT: calf tenderness, clubbing, pedal edema Neurological exam: PRESENT: alert, awake, oriented to person, oriented to place, oriented to time, oriented to situation, CN II-XII grossly intact. ABSENT: motor sensory deficit Psychiatric exam: PRESENT: appropriate affect, normal mood. ABSENT: homicidal ideation, suicidal ideation Skin exam: PRESENT: dry, intact, warm. ABSENT: cyanosis, rash Results Laboratory Results: 07/19/19 07:43 07/19/19 07:43 07/19/19 07/19/19 07:43 07:43 WBC 5.8 RBC 4.38 Hgb 12.4 Hct 36.1 MCV 83 MCH 28.4 MCHC 34.4 RDW 14.5 H Plt Count 241 Seg Neutrophils % 63.3 Sodium 139.0 Potassium 4.0 Chloride 105 Carbon Dioxide 23 Anion Gap 11 BUN 16 Creatinine 0.82 Est GFR ( Amer) > 60 Glucose 104 Calcium 9.4 Total Bilirubin 0.4 AST 23 Alkaline Phosphatase 124 Total Protein 8.1 Albumin 4.3 07/19/19 07/19/19 07:43 07:43 Creatine Kinase 47 CK-MB (CK-2) 0.26 Troponin I < 0.012 Impressions: Chest X-Ray 07/19/19 11:39 IMPRESSION: Emphysematous change without evidence of acute cardiopulmonary proc ess. Assessment and Plan - Diagnosis (1) Chest pain Qualifiers: Chest pain type: other chest pain Qualified Code(s): R07.89 - Other chest pain; R07.8 - Other chest pain Is this a current diagnosis for this admission?: Yes Plan: Given presentation and chest tenderness on physical examination this is unlikely cardiac chest pain. Patient has diffuse chest wall tenderness on palpation to acute costochondritis. Given her age, hypertension and HEART Score 3 patient will benefit from a stress test for further risk stratification. I have suggested to patient that she may have outpatient stress test however she prefers to stay in hospital and have it done here. Admit to telemetry, trend troponins, antiplatelets, SEAMUS, statins, sublingual nitroglycerin as needed, IV morphine PRN, supplemental oxygen. Patient stating that she is not taking aspirin because it interacts with her antiseizure medications. Based on Lexicomp there is no interaction between aspirin and Tegretol and aspirin and Keppra. NPO after midnight. Stress test tomorrow. (2) History of seizure disorder Is this a current diagnosis for this admission?: Yes Plan: Last seizure was 5 months ago. Compliant to her medication. Takes Tegretol and Keppra at home. Restart home meds. Outpatient PCP follow-up. Seizure precaution. (3) Costochondritis Is this a current diagnosis for this admission?: Yes Plan: Denies any recent chest trauma, heavy lifting, or upper respiratory infection. PRN NSAIDs. Plan as per #1. (4) GERD (gastroesophageal reflux disease) Qualifiers: Esophagitis presence: esophagitis presence not specified Qualified Code(s): K21.9 - Gastro-esophageal reflux disease without esophagitis Is this a current diagnosis for this admission?: Yes Plan: Chronic. Denies any weight changes, melena, hemoptysis or hematochezia. H&H WNL. Restart home meds. Outpatient gastroenterology follow-up. (5) Hypertension Is this a current diagnosis for this admission?: Yes Plan: Normotensive. Euvolemic. Takes amlodipine 10 mg and lisinopril/HCTZ at home. Restart home meds. Adjust meds as needed. Outpatient PCP follow-up.
[2019-07-19] MEDS ORDERED: ONDANSETRON HCL INJ/PF 4 MG/2 ML SDV IV PRN (15:17)
[2019-07-19] MEDS ORDERED: IPRATROPIUM/ALBUTEROL 0.5-2.5 MG/3 ML AMPUL NEB PRN (15:17)
[2019-07-19] MEDS ORDERED: MAG HYDROX/AL HYDROX/SIMETH SUSP 30 ML UDCUP PO PRN (15:17)
[2019-07-19] MEDS ORDERED: ACETAMINOPHEN 325 MG TABLET PO PRN (15:17)
[2019-07-19] MEDS ORDERED: IBUPROFEN 600 MG TABLET PO PRN (15:20)
[2019-07-19] MEDS ORDERED: TIZANIDINE HCL 4 MG TABLET PO PRN (16:55)
[2019-07-19] MEDS ORDERED: HYDRALAZINE HCL INJ/PF 20 MG/1 ML SDV IV PRN (16:56)
[2019-07-19 17:24] LABS: CHOLESTEROL 176.39 mg/dL (0-200); TRIGLYCERIDES 71 mg/dL (<150)
[2019-07-19 17:36] LABS: DIRECT LDL 107 mg/dL (<100)
[2019-07-19 18:47] LABS: URINE AMPHETAMINES SCREEN NEGATIVE; URINE BARBITURATES SCREEN NEGATIVE; URINE BENZODIAZEPINES SCREEN NEGATIVE; URINE COCAINE SCREEN NEGATIVE; URINE MARIJUANA (THC) SCREEN NEGATIVE; URINE METHADONE SCREEN NEGATIVE; URINE PHENCYCLIDINE SCREEN NEGATIVE
[2019-07-19] MEDS: LEVETIRACETAM 500 MG TABLET PO SCH (21:20)
[2019-07-19] MEDS: CARBAMAZEPINE 100 MG TAB.SR.12H PO SCH (21:21)
[2019-07-19] MEDS: HEPARIN SOD (PORCINE) 5,000 UNIT/ML 1 ML VIAL SUBCUT SCH (21:22)
[2019-07-19] MEDS ORDERED: FAMOTIDINE 20 MG TABLET PO SCH (22:00)
[2019-07-19] MEDS ORDERED: LEVETIRACETAM 750 MG PO SCH (22:00)
[2019-07-20] MEDS: OXYCODONE-ACETAMINOPHEN 5-325 MG TABLET PO PRN ×2 (00:06→09:05)
[2019-07-20] MEDS ORDERED: NORMAL SALINE 1000 ML 1,000 ML IV ONE (01:00)
[2019-07-20] MEDS: NITROGLYCERIN 0.4 MG/TAB 25 TAB/BOTTLE SL PRN ×3 (02:16→02:28)
[2019-07-20] MEDS ORDERED: KETOROLAC TROMETHAMINE INJ/PF 30 MG/1 ML SDV ONE (02:53)
[2019-07-20 03:03] LABS: CREATINE KINASE MB 0.23 ng/mL (<4.55)
[2019-07-20 03:06] LABS: TROPONIN I < 0.012 ng/mL
[2019-07-20] MEDS ORDERED: KETOROLAC TROMETHAMINE INJ/PF 30 MG/1 ML SDV IV ONE (03:15)
--- NOTE | 2019-07-20 03:22 | Progress Note ---
Provider Note Provider Note: Critical care note: 07/20/2019 Critical care start time: 2:07 AM Critical care problem: Chest pain The patient's nurse contacted me with the patient having informed her that she had suddenly woken with severe 5/5 pain in her left chest beginning at the parasternal area involving the second third and fourth ribs and extending up to the left clavicle and left anterior shoulder area. The pain was accompanied by diaphoresis and was not improved by nitroglycerin x2. Upon my evaluation of the patient her chest was noted to be clear to auscultation and percussion, heart showed a regular rate and rhythm without murmurs clicks gallops or rubs, her abdomen is soft bowel sounds are positive there is no tenderness to palpation. Palpation of the patient's chest wall however showed marked increase in her already existing chest discomfort with the pain becoming more intense and severe with pressure in the already defined area. An EKG and serial cardiac enzymes were ordered. EKG showed a sinus bradycardia with no evidence of acute myocardial ischemia or injury present. Initial cardiac enzymes are negative as reported thus far. Patient was subsequent treated with Toradol 30 mg IV x1 with some improvement in the chest pain. Patient was informed of her initial test results. Critical care stop time: 3:19 AM Total critical care time: 19 minutes
[2019-07-20] MEDS ORDERED: MORPHINE SULFATE 10 MG/ML INJ IV ONE ×2 (04:00→06:00)
[2019-07-20] MEDS ORDERED: MORPHINE SULFATE 10 MG/ML INJ IV PRN ×3 (04:53→05:01)
[2019-07-20] MEDS: HEPARIN SOD (PORCINE) 5,000 UNIT/ML 1 ML VIAL SUBCUT SCH ×3 (05:11→21:57)
[2019-07-20] MEDS: PANTOPRAZOLE SODIUM 40 MG TABLET.DR PO SCH (05:11)
--- NOTE | 2019-07-20 07:31 | EKG REPORT ---
SEVERITY:- NORMAL ECG - SINUS RHYTHM : Confirmed by: Tony Thibodeaux MD 20-Jul-2019 07:30:34
[2019-07-20] MEDS: MORPHINE SULFATE 10 MG/ML INJ IV PRN ×4 (07:48→17:28)
[2019-07-20] MEDS: COLCHICINE 0.6 MG TABLET PO SCH ×2 (08:59→17:27)
[2019-07-20] MEDS: LEVETIRACETAM 500 MG TABLET PO SCH ×2 (09:03→21:53)
[2019-07-20] MEDS: HYDROCHLOROTHIAZIDE 12.5 MG TABLET PO SCH (09:04)
[2019-07-20] MEDS: DOCUSATE SODIUM 100 MG CAPSULE PO SCH (09:05)
[2019-07-20] MEDS: ASPIRIN 81 MG TABLET, CHEWABLE PO SCH (09:06)
[2019-07-20] MEDS: CARBAMAZEPINE 100 MG TAB.SR.12H PO SCH ×2 (09:08→21:56)
[2019-07-20] MEDS: NORMAL SALINE 1000 ML 1,000 ML IV PRN ×2 (09:09→21:24)
[2019-07-20] MEDS ORDERED: DOCUSATE SODIUM 100 MG/10 ML UDC PO SCH (10:00)
[2019-07-20] MEDS ORDERED: (PENDING PHARMACY ID) (Lisinopril/Hydrochlorothiazide [Lisinopril-Hctz 20-12.5 Mg Tab] 1 E PO SCH (10:00)
--- NOTE | 2019-07-20 10:22 | PDOC PROGRESS REPORT ---
Subjective Progress Note for:: 07/20/19 Subjective:: CAMILLA THOMAS is a 63 year old female past medical history of hypertension, seizure disorder, presenting to ED complaining of chest pain. Chest pain started around 8 AM while patient was resting at home, started on the right side, pressure-like, 3/5 in intensity, constant, radiating to left arm, worse with movement, no alleviating factors identified, accompanied with diaphoresis. Denies any history of previous CAD, recent travel, recent URI, cough, nausea, vomiting, fever, chills, abdominal pain, diarrhea, constipation, urinary symptoms, weakness, weight changes, orthopnea, dyspnea, paroxysmal nocturnal dyspnea. Patient's chest pain resolved after she was given Maalox and aspirin in the hospital. EKG, troponins, vitals, CBC and CMP al negative however due to patient's risk factor of age and hypertension hospital was consulted for further management. 07/20/2019 overnight patient had one episode of chest pain was evaluated by production finisher was deemed to be due to musculoskeletal, troponin was still negative and EKG was no acute changes. This morning his nuclear stress test was DC'd as patient also complaining of chest pain. On my evaluation patient is having tender to palpation over her anterior chest, I have contacted Dr. Lopez who suggested to start her on colchicine and reschedule nuclear stress test for tomorrow. Otherwise patient is denying any fever, chills, nausea, vomiting, diarrhea, constipation, shortness of breath or any urinary symptoms. P.o. tolerant, ambulatory and having normal bowel and bladder movements. Reason For Visit: CHEST PAIN Physical Exam Vital Signs: Temp Pulse Resp BP Pulse Ox 97.9 F 61 17 113/73 96 07/20/19 09:00 07/20/19 09:00 07/20/19 09:00 07/20/19 09:00 07/20/19 09:00 Intake & Output 07/19/19 07/20/19 07/21/19 06:59 06:59 06:59 Intake Total 240 Output Total 900 Balance -660 Weight 77.6 kg General appearance: PRESENT: no acute distress, well-developed, well-nourished Respiratory exam: PRESENT: clear to auscultation rohini. ABSENT: rales, rhonchi, wheezes Cardiovascular exam: PRESENT: RRR, other - TTP over entire anterior chest. ABSENT: diastolic murmur, rubs, systolic murmur Pulses: PRESENT: normal dorsalis pedis pul GI/Abdominal exam: PRESENT: normal bowel sounds, soft. ABSENT: distended, guarding, mass, organolmegaly, rebound, tenderness Neurological exam: PRESENT: alert, awake, oriented to person, oriented to place, oriented to time, oriented to situation, CN II-XII grossly intact. ABSENT: alexis r sensory deficit Results Laboratory Results: 07/19/19 07:43 07/19/19 07:43 07/19/19 07/19/19 07:43 07:43 Triglycerides 71 Cholesterol 176.39 LDL Cholesterol Direct 107 H VLDL Cholesterol 14.0 HDL Cholesterol 43 TSH 3.71 07/19/19 07/19/19 07/19/19 07:43 07:43 14:26 Creatine Kinase 47 CK-MB (CK-2) 0.26 Troponin I < 0.012 < 0.012 07/19/19 07/20/19 07/20/19 20:02 02:21 02:21 Creatine Kinase 45 CK-MB (CK-2) 0.23 Troponin I < 0.012 < 0.012 Impressions: Chest X-Ray 07/19/19 11:39 IMPRESSION: Emphysematous change without evidence of acute cardiopulmonary process. Assessment and Plan - Diagnosis (1) Chest pain Qualifiers: Chest pain type: other chest pain Qualified Code(s): R07.89 - Other chest pain; R07.8 - Other chest pain Is this a current diagnosis for this admission?: Yes Plan: Most likely musculoskeletal in origin. Given presentation and chest tenderness on physical examination this is unlikely cardiac chest pain. Patient has diffuse chest wall tenderness on palpation to acute costochondritis. Given her age, hypertension and HEART Score 3 patient will benefit from a stress test for further risk stratification. I have suggested to patient that she may have outpatient stress test however she prefers to stay in hospital and have it done here. Admit to telemetry, trend troponins, antiplatelets, SEAMUS, statins, sublingual nitroglycerin as needed, IV morphine PRN, supplemental oxygen. Started on colchicine as per Dr. Trevino's recommendation. Continue SEAMUS NSAIDs and colchicine. Patient stating that she is not taking aspirin because it interacts with her antiseizure medications. Based on Lexicomp there is no interaction between aspirin and Tegretol and aspirin and Keppra. NC was rescheduled today due to ongoing chest pain. Rescheduled for tomorrow. N.p.o. after midnight. (2) History of seizure disorder Is this a current diagnosis for this admission?: Yes Plan: Last seizure was 5 months ago. Compliant to her medication. Takes Tegretol and Keppra at home. Restart home meds. Outpatient PCP follow-up. Seizure precaution. (3) Costochondritis Is this a current diagnosis for this admission?: Yes Plan: Denies any recent chest trauma, heavy lifting, or upper respiratory infection. Scheduled NSAIDs. (4) GERD (gastroesophageal reflux disease) Qualifiers: Esophagitis presence: esophagitis presence not specified Qualified Code(s): K21.9 - Gastro-esophageal reflux disease without esophagitis Is this a current diagnosis for this admission?: Yes Plan: Chronic. Denies any weight changes, melena, hemoptysis or hematochezia. H&H WNL. Restart home meds. Outpatient gastroenterology follow-up. (5) Hypertension Is this a current diagnosis for this admission?: Yes Plan: Normotensive. Euvolemic. Takes amlodipine 10 mg and lisinopril/HCTZ at home. Restart home meds. Adjust meds as needed. Outpatient PCP follow-up. (6) Obesity (BMI 30.0-34.9) Is this a current diagnosis for this admission?: Yes Plan: TSH, A1c and lipid panel WNL(except for mildly elevated LDL). Likely diet related. Diet and lifestyle modification recommended.
[2019-07-20] MEDS: ONDANSETRON HCL INJ/PF 4 MG/2 ML SDV IV PRN ×3 (11:25→21:24)
[2019-07-20 11:29] LABS: CREATINE KINASE MB < 0.22 ng/mL (<4.55); TROPONIN I < 0.012 ng/mL
[2019-07-20] MEDS ORDERED: PROMETHAZINE HCL 6.25 MG/5 ML SYRUP 60 ML PO PRN (12:44)
[2019-07-20] MEDS: AMLODIPINE BESYLATE 10 MG TABLET PO SCH (13:40)
[2019-07-20] MEDS: LISINOPRIL 10 MG TABLET PO SCH (13:40)
[2019-07-20] MEDS: IBUPROFEN 600 MG TABLET PO SCH ×2 (14:51→21:54)
[2019-07-20 19:58] LABS: CREATINE KINASE MB 0.38 ng/mL (<4.55)
[2019-07-20 19:59] LABS: TROPONIN I < 0.012 ng/mL
[2019-07-20] MEDS ORDERED: ATORVASTATIN CALCIUM 10 MG TABLET PO SCH (22:00)
[2019-07-21] MEDS: IBUPROFEN 600 MG TABLET PO SCH ×2 (05:19→14:32)
[2019-07-21] MEDS: HEPARIN SOD (PORCINE) 5,000 UNIT/ML 1 ML VIAL SUBCUT SCH ×2 (05:19→14:32)
[2019-07-21] MEDS: PANTOPRAZOLE SODIUM 40 MG TABLET.DR PO SCH (05:19)
[2019-07-21 05:33] LABS: BLOOD UREA NITROGEN 13 mg/dL (7-20); CALCIUM 8.5 mg/dL (8.4-10.2); CARBON DIOXIDE 25 mmol/L (22-30); GLUCOSE 78 mg/dL (75-110); POTASSIUM 3.9 mmol/L (3.6-5.0)
[2019-07-21 05:42] LABS: CHLORIDE 107 mmol/L (98-107)
[2019-07-21 05:46] LABS: ANION GAP 6 (5-19)
[2019-07-21] MEDS: COLCHICINE 0.6 MG TABLET PO SCH (10:56)
[2019-07-21] MEDS: CARBAMAZEPINE 100 MG TAB.SR.12H PO SCH (10:59)
[2019-07-21] MEDS: LEVETIRACETAM 500 MG TABLET PO SCH (11:00)
[2019-07-21] MEDS: LISINOPRIL 10 MG TABLET PO SCH (11:00)
[2019-07-21] MEDS: HYDROCHLOROTHIAZIDE 12.5 MG TABLET PO SCH (11:01)
[2019-07-21] MEDS: ASPIRIN 81 MG TABLET, CHEWABLE PO SCH (11:01)
[2019-07-21] MEDS: DOCUSATE SODIUM 100 MG CAPSULE PO SCH (11:01)
[2019-07-21] MEDS: AMLODIPINE BESYLATE 10 MG TABLET PO SCH (11:01)
[2019-07-21] MEDS ORDERED: REGADENOSON INJ 0.4 MG/5 ML DISP.SYRIN IV ONE (14:36)
[2019-07-21 15:05] VITALS: BP 131/71
--- NOTE | 2019-07-21 16:18 | PDOC DISCHARGE SUMMARY ---
Impression - Admit/DC Date/PCP Admission Date/Primary Care Provider: 07/19/19 13:50 [facility] Discharge Date: 07/21/19 - Discharge Diagnosis (1) Chest pain Is this a current diagnosis for this admission?: Yes (2) History of seizure disorder Is this a current diagnosis for this admission?: Yes (3) Costochondritis Is this a current diagnosis for this admission?: Yes (4) GERD (gastroesophageal reflux disease) Is this a current diagnosis for this admission?: Yes (5) Hypertension Is this a current diagnosis for this admission?: Yes (6) Obesity (BMI 30.0-34.9) Is this a current diagnosis for this admission?: Yes - Additional Information Resuscitation Status: Full Code Referrals: [facility],[place] [Primary Care Provider] - 07/25/19 3:30 pm Prescriptions: Colchicine [Colchicine 0.6 mg Tablet] 0.6 mg PO BID 6 Days #12 tablet Ibuprofen [Ibu] 600 mg PO Q8 6 Days #18 tablet Atorvastatin Calcium [Lipitor 10 mg Tablet] 10 mg PO QHS 30 Days #30 tablet Home Medications: Amlodipine Besylate [Norvasc 10 mg Tablet] 10 mg PO DAILY 08/31/17 Lisinopril/Hydrochlorothiazide [Lisinopril-Hctz 20-12.5 mg Tab] 1 each PO DAILY 08/31/17 Omeprazole 40 mg PO BID 08/31/17 Albuterol Sulfate [Proventil Hfa] 1 puff PO Q6HP PRN 07/19/19 Albuterol Sulfate [Ventolin 0.083% Neb 2.5 mg/3 mL Ampul] 2.5 mg NEB RTQ6HP PRN 07/19/19 Carbamazepine [Tegretol Xr 100 mg Tab.sr] 300 mg PO Q12 07/19/19 Levetiracetam 750 mg PO Q12 07/19/19 Tizanidine HCl 4 mg PO Q8HP PRN MDD LAST FILLED 09/02 FOR 60 TABS 07/19/19 Atorvastatin Calcium [Lipitor 10 mg Tablet] 10 mg PO QHS 30 Days #30 tablet 07/21/19 Colchicine [Colchicine 0.6 mg Tablet] 0.6 mg PO BID 6 Days #12 tablet 07/21/19 Ibuprofen [Ibu] 600 mg PO Q8 6 Days #18 tablet 07/21/19 History of Present Illiness History of Present Illness: CAMILLA THOMAS is a 63 year old female past medical history of hypertension, seizure disorder, presenting to ED complaining of chest pain. Chest pain started around 8 AM while patient was resting at home, started on the right side, pressure-like, 3/5 in intensity, constant, radiating to left arm, worse with movement, no alleviating factors identified, accompanied with diaphoresis. Denies any history of previous CAD, recent travel, recent URI, cough, nausea, vomiting, fever, chills, abdominal pain, diarrhea, constipation, urinary symptoms, weakness, weight changes, orthopnea, dyspnea, paroxysmal nocturnal dyspnea. Patient's chest pain resolved after she was given Maalox and aspirin in the hospital. EKG, troponins, vitals, CBC and CMP al negative however due to patient's risk factor of age and hypertension hospital was consulted for further management. Hospital Course Hospital Course: (1) Chest pain Improved. Most likely musculoskeletal in origin. Given presentation and chest tenderness on physical examination this is unlikely cardiac chest pain. Patient had diffuse chest wall tenderness on palpation to acute costochondritis. Was admited to telemetry, trend troponins, antiplatelets, SEAMUS, statins, sublingual nitroglycerin as needed, IV morphine PRN, supplemental oxygen. Given her age, hypertension and HEART Score 3 NK was ordered which came back negative. Lipid panel obtained which was normal other than elevated LDL. Was discharged on simvastatin and advised to restart her antihypertensive meds. (2) History of seizure disorder Last seizure was 5 months ago. Compliant to her medication. Takes Tegretol and Keppra at home. Restarted home meds. Implemented fall and seizure precautions. Advised to restart home meds upon discharge. (3) Costochondritis Denied any any recent chest trauma, heavy lifting, or upper respiratory infection. Diffuse tenderness over anterior chest wall. Relieved with scheduled NSAIDs and colchicine. Was discharged on ibuprofen 600 mg p.o. every 8 hours for another 6 days. Was discharged on colchicine 0.6 mg p.o. twice daily for another 6 days. (4) GERD (gastroesophageal reflux disease) Chronic. Denies any weight changes, melena, hemoptysis or hematochezia. H&H WNL. Restarted home meds. Outpatient gastroenterology follow-up recommended. (5) Hypertension Normotensive. Euvolemic. Takes amlodipine 10 mg and lisinopril/HCTZ at home. Started home meds. Advised to restart home meds upon discharge. Outpatient PCP follow-up. (6) Obesity (BMI 30.0-34.9) TSH, A1c and lipid panel WNL(except for mildly elevated LDL). Likely diet related. Diet and lifestyle modification recommended. Physical Exam Vital Signs: Temp Pulse Resp BP Pulse Ox 97.7 F 68 17 123/54 L 96 07/21/19 11:27 07/21/19 14:00 07/21/19 11:27 07/21/19 11:27 07/21/19 11:27 Intake & Output 07/20/19 07/21/19 07/22/19 06:59 06:59 06:59 Intake Total 240 1562 Output Total 900 Balance -660 1562 Weight 77.6 kg 78.9 kg General appearance: PRESENT: no acute distress, well-developed, well-nourished Head exam: PRESENT: atraumatic, normocephalic Eye exam: PRESENT: conjunctiva pink, EOMI, PERRLA. ABSENT: scleral icterus Ear exam: PRESENT: normal external ear exam Mouth exam: PRESENT: moist, tongue midline Neck exam: ABSENT: carotid bruit, JVD, lymphadenopathy, thyromegaly Respiratory exam: PRESENT: clear to auscultation rohini. ABSENT: rales, rhonchi, wheezes Cardiovascular exam: PRESENT: RRR. ABSENT: diastolic murmur, rubs, systolic murmur Pulses: PRESENT: normal dorsalis pedis pul Vascular exam: PRESENT: normal capillary refill GI/Abdominal exam: PRESENT: normal bowel sounds, soft. ABSENT: distended, guarding, mass, organolmegaly, rebound, tenderness Rectal exam: PRESENT: deferred Extremities exam: PRESENT: full ROM. ABSENT: calf tenderness, clubbing, pedal edema Neurological exam: PRESENT: alert, awake, oriented to person, oriented to place, oriented to time, oriented to situation, CN II-XII grossly intact. ABSENT: motor sensory deficit Psychiatric exam: PRESENT: appropriate affect, normal mood. ABSENT: homicidal ideation, suicidal ideation Skin exam: PRESENT: dry, intact, warm. ABSENT: cyanosis, rash Results Laboratory Results: WBC 5.8 10^3/uL (4.0-10.5) 07/19/19 07:43 RBC 4.38 10^6/uL (3.72-5.28) 07/19/19 07:43 Hgb 12.4 g/dL (12.0-15.5) 07/19/19 07:43 Hct 36.1 % (36.0-47.0) 07/19/19 07:43 MCV 83 fl (80-97) 07/19/19 07:43 MCH 28.4 pg (27.0-33.4) 07/19/19 07:43 MCHC 34.4 g/dL (32.0-36.0) 07/19/19 07:43 RDW 14.5 % (11.5-14.0) H 07/19/19 07:43 Plt Count 241 10^3/uL (150-450) 07/19/19 07:43 Lymph % (Auto) 24.8 % (13-45) 07/19/19 07:43 Finney % (Auto) 9.9 % (3-13) 07/19/19 07:43 Eos % (Auto) 1.0 % (0-6) 07/19/19 07:43 Baso % (Auto) 1.0 % (0-2) 07/19/19 07:43 Absolute Neuts (auto) 3.7 10^3/uL (1.7-8.2) 07/19/19 07:43 Absolute Lymphs (auto) 1.4 10^3/uL (0.5-4.7) 07/19/19 07:43 Absolute Monos (auto) 0.6 10^3/uL (0.1-1.4) 07/19/19 07:43 Absolute Eos (auto) 0.1 10^3/uL (0.0-0.6) 07/19/19 07:43 Absolute Basos (auto) 0.1 10^3/uL (0.0-0.2) 07/19/19 07:43 Seg Neutrophils % 63.3 % (42-78) 07/19/19 07:43 Sodium 137.6 mmol/L (137-145) 07/21/19 04:56 Potassium 3.9 mmol/L (3.6-5.0) 07/21/19 04:56 Chloride 107 mmol/L (98-107) 07/21/19 04:56 Carbon Dioxide 25 mmol/L (22-30) 07/21/19 04:56 Anion Gap 6 (5-19) 07/21/19 04:56 BUN 13 mg/dL (7-20) 07/21/19 04:56 Creatinine 0.68 mg/dL (0.52-1.25) 07/21/19 04:56 Est GFR ( Amer) > 60 (>60) 07/21/19 04:56 Est GFR (MDRD) Non-Af > 60 (>60) 07/21/19 04:56 Glucose 78 mg/dL (75-110) 07/21/19 04:56 POC Glucose 91 mg/dL (70-110) 07/20/19 02:39 Hemoglobin A1c % 5.5 % (4.7-6.0) 07/19/19 07:43 Calcium 8.5 mg/dL (8.4-10.2) 07/21/19 04:56 Total Bilirubin 0.4 mg/dL (0.2-1.3) 07/19/19 07:43 Direct Bilirubin 0.1 mg/dL (0.0-0.4) 07/19/19 07:43 Neonat Total Bilirubin Not Reportable 07/19/19 07:43 Neonat Direct Bilirubin Not Reportable 07/19/19 07:43 Neonat Indirect Bili Not Reportable 07/19/19 07:43 AST 23 U/L (14-36) 07/19/19 07:43 ALT 15 U/L (<35) 07/19/19 07:43 Alkaline Phosphatase 124 U/L (38-126) 07/19/19 07:43 Creatine Kinase 47 U/L (30-135) 07/20/19 19:05 CK-MB (CK-2) 0.38 ng/mL (<4.55) 07/20/19 19:05 Troponin I < 0.012 ng/mL 07/20/19 19:05 Total Protein 8.1 g/dL (6.3-8.2) 07/19/19 07:43 Albumin 4.3 g/dL (3.5-5.0) 07/19/19 07:43 Triglycerides 71 mg/dL (<150) 07/19/19 07:43 Cholesterol 176.39 mg/dL (0-200) 07/19/19 07:43 LDL Cholesterol Direct 107 mg/dL (<100) H 07/19/19 07:43 VLDL Cholesterol 14.0 mg/dL (-31) 07/19/19 07:43 HDL Cholesterol 43 mg/dL (>40) 07/19/19 07:43 TSH 3.71 uIU/mL (0.47-4.68) 07/19/19 07:43 Urine Opiates Screen NEGATIVE 07/19/19 10:15 Urine Methadone Screen NEGATIVE 07/19/19 10:15 Ur Barbiturates Screen NEGATIVE 07/19/19 10:15 Ur Phencyclidine Scrn NEGATIVE 07/19/19 10:15 Ur Amphetamines Screen NEGATIVE 07/19/19 10:15 U Benzodiazepines Scrn NEGATIVE 07/19/19 10:15 Urine Cocaine Screen NEGATIVE 07/19/19 10:15 U Marijuana (THC) Screen NEGATIVE 07/19/19 10:15 07/19/19 07/19/19 07/19/19 07:43 14:26 20:02 CK-MB (CK-2) 0.26 Troponin I < 0.012 < 0.012 < 0.012 07/20/19 07/20/19 07/20/19 02:21 10:41 19:05 CK-MB (CK-2) 0.23 < 0.22 0.38 Troponin I < 0.012 < 0.012 < 0.012 Impressions: Chest X-Ray 07/19/19 11:39 IMPRESSION: Emphysematous change without evidence of acute cardiopulmonary process. Plan Time Spent: Greater than 30 Minutes Stroke Is this a Stroke Patient?: No Acute Heart Failure - Is this a Heart Failure Patient?: No
--- NOTE | 2019-07-22 22:54 | DRAGON STRESS TEST REPORT ---
Intravenous Lexiscan Cardiolite stress test using single photon emmision computerized tomography. Date of procedure: 07/21/2019. Ordering Provider: Dr. Vallecillo. Patient's status In Patient. Indication: Chest pain. Coronary risk factors: Age, and hypertension. Resting EKG: Sinus Rhythm. No acute changes. EKG within normal limits. Stress EKG: No changes of ischemia. The patient had no chest pain or discomfort, and there were no arrhythmias seen. Reason for termination: Protocol. Conclusions: Normal EKG and hemodynamic response to IV Lexiscan. Nuclear data: At rest the patient was given 12.96 millicuries of technetium 99m sestamibi injected intravenously. As per protocol rest non gated SPECT images were obtained. Subsequently the patient was given intravenous Lexiscan at a dose of 0.4 mg in 5 mL intravenously, followed by flush with normal saline. Subsequently the stress dose of 36.9 millicuries of technetium 99m sestamibi was injected intravenously. As per protocol stress gated images were obtained. Nuclear interpretation: Review of images showed that all segments of the myocardium had normal perfusion at rest, and normal perfusion post stress with IV Lexiscan. All segments of the myocardium had normal motion, contraction, and thickening by gated study. T. I D. ratio was normal at 1.13. There is no transient ischemic dilatation of the left ventricle. Computer read rest, and stress left ventricular ejection fraction were 74 %, and 71 %, respectively. . Conclusion: 1. There is no scintigraphic evidence of Lexiscan induced myocardial ischemia. 2. There is no scintigraphic evidence of myocardial infarction/scar. Recommendations: Aggressive risk factor modification, and treating the underlying co- morbidities. MTDD
== END 2019-07-21 16:51 | disposition home or self-care (01) ==
LOC: ER 09:10 → EH 13:50 → 4S 15:10
PROVIDERS: ADMIT Internal Medicine; ATTEND Internal Medicine
DX: R07.89 Other chest pain (principal); M94.0 Chondrocostal junction syndrome [Tietze]; K21.9 Gastro-esophageal reflux disease without esophagitis; I10 Essential (primary) hypertension; E66.9 Obesity, unspecified; G40.909 Epilepsy, unspecified, not intractable, without status epilepticus; Z68.34 Body mass index [BMI] 34.0-34.9, adult; Z82.49 Family history of ischemic heart disease and other diseases of the circulatory system; Z79.899 Other long term (current) drug therapy; Z90.49 Acquired absence of other specified parts of digestive tract; Z87.01 Personal history of pneumonia (recurrent)
CPT/HCPCS: 93005 ×2; 99285; 36415 ×3; 82553 ×2; 82962; 82550 ×2; 84443; 85025; 80048; 80053; 84484 ×2; 80307; 83036; 80061; 93017; 71046; 78452; 93010 ×2; G0378 ×3; A9500; J2785; J1644 ×3; J3490 ×7; J1885; J2270; J2405; J7030; Q9969

== ENCOUNTER → 2019-07-25 | Outpatient (CLI) | payer OTHER ==
--- NOTE | 2019-07-26 03:41 | RADIOLOGY REPORT (SQ) ---
EXAM DESCRIPTION: CT HEAD WITHOUT IV CONTRAST COMPLETED DATE/TME: 07/25/2019 13:59 CLINICAL HISTORY: 63 years, Female, WEAKNESS (R53.1) COMPARISON: EXAM: CT head without contrast. INDICATION: Weakness. TECHNIQUE: Contiguous axial CT images of the brain. Intravenous contrast: Absent. DLP 855 mGy-cm. This exam was performed according to our departmental dose-optimization program, which includes automated exposure control, adjustment of the mA and/or kV according to patient size and/or use of iterative reconstruction technique. COMPARISON: 06/22/2019. FINDINGS: Subcutaneous: Unremarkable. No acute intracranial hemorrhage. No midline shift. No mass effect. Ventricles: No hydrocephalus. Bashir-white differentiation preserved. Paranasal sinuses/mastoid air cells: The maxillary sinuses are hypoplastic. There is mild mucosal thickening of the left maxillary sinus. Bones/orbits: Visualized portions are unremarkable. IMPRESSION: 1. No CT evidence of acute intracranial hemorrhage. TECHNIQUE: Images stored on PACS. All CT scanners at this facility use dose modulation, iterative reconstruction, and/or weight based dosing when appropriate to reduce radiation dose to as low as reasonably achievable (ALARA). [facility]: Dose Right [facility]: CareDose [facility]: Dose Right [facility]: Teradose 4D [facility]: [facility] LIMITATIONS: None. FINDINGS: IMPRESSION: TECHNICAL DOCUMENTATION: Quality ID # 436: Final reports with documentation of one or more dose reduction techniques (e.g., Automated exposure control, adjustment of the mA and/or kV according to patient size, use of iterative reconstruction technique) copyright 2010 [employer]- All Rights Reserved
== END ==
LOC: RAD 13:56
PROVIDERS: ATTEND Internal Medicine
DX: R51 Headache (principal); R53.1 Weakness
CPT/HCPCS: 70450

== ENCOUNTER 2019-10-19 09:59 | Emergency (ER) | payer MEDICARE, MEDICAID ==
[2019-10-19 10:07] VITALS: BP 129/81
--- NOTE | 2019-10-19 10:46 | ER Document Report ---
ED Headache - General Mode of Arrival: Ambulatory Information source: Patient TRAVEL OUTSIDE OF THE [place] IN LAST 30 DAYS: No <LOLA ALANIS - Last Filed: 10/19/19 10:38> - General Mode of Arrival: Ambulatory Information source: Patient - HPI Patient complains to provider of: Headache, "Migraine" Onset: Other - 3 days Timing: Still present Quality of pain: Achy, Pressure Severity: Severe Pain Level: 4 Associated symptoms: Photophobia Exacerbated by: Light Similar symptoms previously: Yes Recently seen / treated by doctor: Yes <ALBER WADDELL - Last Filed: 10/19/19 16:39> - General Chief Complaint: Headache >24 hrs old Stated Complaint: HEADACHE Time Seen by Provider: 10/19/19 10:37 Primary Care Provider: AGNIESZKA CANO MD [Primary Care Provider] - Follow up tomorrow Notes: 64-year-old female presented to ED for complaint of migraines. She states she gets migraines frequently. She states the medicine that her primary doctor gave her is not helping this migraine. He did put her on Robaxin. States she is on Keppra due to seizures but she has not had a seizure in several years. She states that her primary doctor told her that she cannot take Tylenol or Motrin while she was on Keppra. (LOLA ALANIS) 64-year-old female presents emergency department for reports of migraines for the past 3 days. She reports is on the left side of her quaker. Reports is typical migraine. She reports she has had it for years. Also reports she is had seizures. She is not allowed to take Tylenol aspirin Motrin. She reports her provider told her it would interact with her Keppra. She reports her provider put her on Robaxin but that is not helping the migraine. She denies fever vomiting diarrhea. She reports sensitive to light. Reports she is eating drinking voiding bowel movement as normal. patient laughing easily, no distress (ALBER WADDELL) - Related Data Allergies/Adverse Reactions: chlorpheniramine [From Coricidin HBP] Allergy (Mild, Verified 10/19/19 11:56) dextromethorphan [From Coricidin HBP] Allergy (Mild, Verified 10/19/19 11:56) guaifenesin [From Coricidin HBP] Allergy (Mild, Verified 10/19/19 11:56) acetaminophen [From Tylenol] Allergy (Verified 10/19/19 11:56) aspirin Allergy (Verified 10/19/19 11:56) Past Medical History - Social History Family History: CVA, DM, Hypertension, Other - Past Medical History Cardiac Medical History: Reports: Hx Hypertension Pulmonary Medical History: Reports: Hx Bronchitis, Hx Pneumonia Neurological Medical History: Reports: Hx Migraine, Hx Seizures Renal/ Medical History: Reports: Hx Ovarian Cysts. Denies: Hx Peritoneal Dialysis GI Medical History: Reports: Hx Gastroesophageal Reflux Disease, Hx Hiatal Hernia, Hx Colonoscopy - Was not completed due to her waking up and having discomfort, Hx Endoscopy Musculoskeletal Medical History: Reports Hx Arthritis, Reports Hx Musculoskeletal Trauma - Fractured clavicle Traumatic Medical History: Reports: Hx Fractures - Clavicle as a child Past Surgical History: Reports: Hx Cholecystectomy, Hx Hysterectomy, Hx Nose Surgery - Immunizations Immunizations up to date: Yes Hx Diphtheria, Pertussis, Tetanus Vaccination: No <LOLA ALANIS - Last Filed: 10/19/19 10:38> - General Information source: Patient - Social History Smoking Status: Unknown if Ever Smoked Cigarette use (# per day): No Frequency of alcohol use: None Drug Abuse: None Lives with: Family Patient has suicidal ideation: No Patient has homicidal ideation: No <ALBER WADDELL - Last Filed: 10/19/19 16:39> Review of Systems <ALBER WADDELL - Last Filed: 10/19/19 16:39> - Review of Systems Notes: Review HPI for review of systems., All other systems negative (ALBER WADDELL) Physical Exam <ALBER WADDELL - Last Filed: 10/19/19 16:39> - Vital signs Vitals: Temp Pulse Resp BP Pulse Ox 97.6 F 71 16 129/81 H 99 10/19/19 10:06 10/19/19 10:06 10/19/19 10:06 10/19/19 10:06 10/19/19 10:06 - Notes Notes: PHYSICAL EXAMINATION: GENERAL: Well-appearing and in no acute distress HEAD: Atraumatic, normocephalic. EYES: Pupils equal round and reactive to light, extraocular movements intact, sclera anicteric, conjunctiva are normal. ENT: nares patent, oropharynx clear without exudates. Moist mucous membranes. NECK: Normal range of motion, supple without lymphadenopathy LUNGS: CTAB and equal. No wheezes rales or rhonchi. HEART: Regular rate and rhythm without murmurs ABDOMEN: Soft, no tenderness. No guarding, no rebound EXTREMITIES: Normal range of motion, no pitting edema. No cyanosis. NEUROLOGICAL: Cranial nerves grossly intact. Normal sensory/motor exams. No obvious neuro deficits PSYCH: Normal mood, normal affect. SKIN: Warm, Dry, normal turgor, no rashes or lesions noted (ALBER WADDELL) Course <ALBER WADDELL - Last Filed: 10/19/19 16:39> - Re-evaluation Re-evalutation: 10/19/19 16:27 64-year-old female presents emergency department with complaints of headache for the past 4 days. She reports she has a history of seizures and there is very little she can take. Patient has taken Robaxin without relief of symptoms. She was given IV fluids caffeine and Motrin. Reports headache is almost gone. Patient laughing, no distress, instructed to follow-up with her primary care provider she verbalized understanding to all instructions. (ALBER WADDELL) - Vital Signs Vital signs: Temp Pulse Resp BP Pulse Ox 98.4 F 71 16 129/81 H 99 10/19/19 14:40 10/19/19 10:06 10/19/19 10:06 10/19/19 10:06 10/19/19 10:06 Discharge <LOLA ALANIS - Last Filed: 10/19/19 10:38> <ALBER WADDELL - Last Filed: 10/19/19 16:39> - Discharge Clinical Impression: Headache Qualifiers: Headache type: unspecified Headache chronicity pattern: unspecified pattern Intractability: not intractable Qualified Code(s): R51 - Headache Condition: Stable Disposition: HOME, SELF-CARE Instructions: Use of Diphenhydramine, Intravenous (IV) Fluids ([facility]) Additional Instructions: *You have been evaluated for headache You have been treated with IV fluids caffeine and Motrin *Follow up with your primary care provider tomorrow *Return to ED for worsening condition, changes, needs, concerns Monitor your blood pressure. Your blood pressure was elevated today. This may be because you were anxious, in pain or because you need medication. It is important to follow up with your primary care provider for full evaluation. Forms: Elevated Blood Pressure Referrals: AGNIESZKA CANO MD [Primary Care Provider] - Follow up tomorrow
--- NOTE | 2019-10-19 10:47 | ER Document Report ---
ED Medical Screen (RME) - General Chief Complaint: Headache Stated Complaint: HEADACHE Time Seen by Provider: 10/19/19 10:37 Primary Care Provider: AGNIESZKA CANO MD [Primary Care Provider] - Follow up as needed Mode of Arrival: Ambulatory Information source: Patient Notes: 64-year-old female presented to ED for complaint of migraines. She states she gets migraines frequently. She states the medicine that her primary doctor gave her is not helping this migraine. He did put her on Robaxin. States she is on Keppra due to seizures but she has not had a seizure in several years. She states that her primary doctor told her that she cannot take Tylenol or Motrin while she was on Keppra. I have checked interactions of Keppra Motrin Tylenol and Benadryl and she cannot take Motrin Toradol or Benadryl with the Keppra without interactions. Patient is alert oriented respirations regular nonlabored speaking in full sentences. I have greeted and performed a rapid initial assessment of this patient. A comprehensive ED assessment and evaluation of the patient, analysis of test results and completion of medical decision making process will be conducted by an additional ED providers. TRAVEL OUTSIDE OF THE [place] IN LAST 30 DAYS: No - Related Data Allergies/Adverse Reactions: chlorpheniramine [From Coricidin HBP] Allergy (Mild, Verified 07/19/19 13:43) dextromethorphan [From Coricidin HBP] Allergy (Mild, Verified 07/19/19 13:43) guaifenesin [From Coricidin HBP] Allergy (Mild, Verified 07/19/19 13:43) acetaminophen [From Tylenol] Allergy (Verified 07/19/19 13:43) aspirin Allergy (Verified 07/19/19 13:43) Home Medications: Robaxin. Keppra Past Medical History - Past Medical History Cardiac Medical History: Reports: Hx Hypertension Pulmonary Medical History: Reports: Hx Bronchitis, Hx Pneumonia Neurological Medical History: Reports: Hx Migraine, Hx Seizures Renal/ Medical History: Reports: Hx Ovarian Cysts. Denies: Hx Peritoneal Dialysis GI Medical History: Reports: Hx Gastroesophageal Reflux Disease, Hx Hiatal Hernia, Hx Colonoscopy - Was not completed due to her waking up and having discomfort, Hx Endoscopy Musculoskeltal Medical History: Reports Hx Arthritis, Reports Hx Musculoskeletal Trauma - Fractured clavicle Traumatic Medical History: Reports: Hx Fractures - Clavicle as a child Past Surgical History: Reports: Hx Cholecystectomy, Hx Hysterectomy, Hx Nose Surgery - Immunizations Immunizations up to date: Yes Hx Diphtheria, Pertussis, Tetanus Vaccination: No Physical Exam - Vital signs Vitals: Temp Pulse Resp BP Pulse Ox 97.6 F 71 16 129/81 H 99 10/19/19 10:06 10/19/19 10:10/19/19 10:06 10/19/19 10:06 10/19/19 10:06 Course - Vital Signs Vital signs: Temp Pulse Resp BP Pulse Ox 97.6 F 71 16 129/81 H 99 10/19/19 10:06 10/19/19 10:06 10/19/19 10:06 10/19/19 10:06 10/19/19 10:06 Doctor's Discharge - Discharge Referrals: AGNIESZKA CANO MD [Primary Care Provider] - Follow up as needed
[2019-10-19] MEDS ORDERED: NORMAL SALINE 1000 ML 1,000 ML IV ONE (14:48)
[2019-10-19] MEDS ORDERED: IBUPROFEN 800 MG TABLET PO ONE (15:27)
== END 2019-10-19 16:43 | disposition home or self-care (01) ==
LOC: ER 09:59
DX: R51 Headache (principal); I10 Essential (primary) hypertension; Z88.6 Allergy status to analgesic agent; Z90.49 Acquired absence of other specified parts of digestive tract; Z90.710 Acquired absence of both cervix and uterus
CPT/HCPCS: A9270; J7030

== ENCOUNTER 2019-11-06 08:10 | Emergency (ER) | payer MEDICARE, MEDICAID, OTHER ==
[2019-11-06 09:18] LABS: HEMATOCRIT 39.3 % (36.0-47.0); HEMOGLOBIN 13.3 g/dL (12.0-15.5); MEAN CORPUSCULAR HEMOGLOBIN 28.1 pg (27.0-33.4); MEAN CORPUSCULAR HGB CONC 33.9 g/dL (32.0-36.0); MEAN CORPUSCULAR VOLUME 83 fl (80-97); PLATELET COUNT 258 10^3/uL (150-450); RED BLOOD COUNT 4.74 10^6/uL (3.72-5.28); RED CELL DISTRIBUTION WIDTH 14.9 % (11.5-14.0); WHITE BLOOD COUNT 15.3 10^3/uL (4.0-10.5)
[2019-11-06 09:27] LABS: ALBUMIN 4.5 g/dL (3.5-5.0); ALKALINE PHOSPHATASE 157 U/L (38-126); ANION GAP 14 (5-19); ASPARTATE AMINO TRANSFERASE 20 U/L (14-36); BILIRUBIN,DIRECT 0.3 mg/dL (0.0-0.4); BILIRUBIN,TOTAL 0.5 mg/dL (0.2-1.3); BLOOD UREA NITROGEN 22 mg/dL (7-20); CALCIUM 9.6 mg/dL (8.4-10.2); CARBON DIOXIDE 22 mmol/L (22-30); CHLORIDE 105 mmol/L (98-107); GLUCOSE 118 mg/dL (75-110); POTASSIUM 4.1 mmol/L (3.6-5.0); TOTAL PROTEIN 8.7 g/dL (6.3-8.2)
[2019-11-06] MEDS ORDERED: NORMAL SALINE 1000 ML 1,000 ML IV ONE ×2 (09:32→13:44)
[2019-11-06] MEDS ORDERED: METOCLOPRAMIDE HCL INJ/PF 10 MG/2 ML SDV IV ONE ×2 (09:33→13:44)
[2019-11-06] MEDS ORDERED: FENTANYL CITRATE INJ/PF 100 MCG/2 ML AMPUL IV ONE (09:33)
[2019-11-06] MEDS ORDERED: DIPHENHYDRAMINE HCL 50 MG/ML VIAL IV ONE (09:33)
[2019-11-06 09:45] LABS: ABSOLUTE LYMPHOCYTES# (MANUAL) 1.2 10^3/uL (0.5-4.7); ABSOLUTE MONOCYTES # (MANUAL) 0.8 10^3/uL (0.1-1.4); BAND NEUTROPHILS % (MANUAL) 2 % (3-5); BASOPHILS % (MANUAL) 0 % (0-2); EOSINOPHILS % (MANUAL) 0 % (0-6); LYMPHOCYTES % (MANUAL) 8 % (13-45); MONOCYTES % (MANUAL) 5 % (3-13); SEGMENTED NEUTROPHILS % (MAN) 85 % (42-78); TOTAL CELLS COUNTED 100
[2019-11-06 09:48] LABS: ANISOCYTOSIS SLIGHT; PLATELET COMMENT ADEQUATE; TOXIC GRANULATION 1+
--- NOTE | 2019-11-06 09:49 | ER Document Report ---
Entered by JEWELL TOBIN SCRIBE 11/06/19 0931 Acting as scribe for:SANTIAGO ESCOBAR DO ED GI/ - General Chief Complaint: Nausea/Vomiting/Diarrhea Stated Complaint: DIARRHEA,VOMITING,ABDOMINAL PAIN Time Seen by Provider: 11/06/19 09:10 Primary Care Provider: AGNIESZKA CANO MD [Primary Care Provider] - Follow up as needed Mode of Arrival: Ambulatory Information source: Patient Notes: This 64-year-old female patient presents to the emergency department today with complaints of diarrhea and vomiting which began this morning at 6:30am. Patient states she is having the same number of episodes of diarrhea that she is vomiting. Patient states she had non-focal sharp abdominal pain prior to the diarrhea or vomit starting. Patient denies any sick contacts although she is staying at a house that has a child as well as a 4-year-old and 5-year-old that are in school. TRAVEL OUTSIDE OF THE [place] IN LAST 30 DAYS: No - Related Data Allergies/Adverse Reactions: chlorpheniramine [From Coricidin HBP] Allergy (Mild, Verified 11/06/19 08:26) dextromethorphan [From Coricidin HBP] Allergy (Mild, Verified 11/06/19 08:26) guaifenesin [From Coricidin HBP] Allergy (Mild, Verified 11/06/19 08:26) acetaminophen [From Tylenol] Allergy (Verified 11/06/19 08:26) aspirin Allergy (Verified 11/06/19 08:26) Home Medications: [facility] [place] Past Medical History - General Information source: Patient - Social History Smoking Status: Never Smoker Cigarette use (# per day): No Chew tobacco use (# tins/day): No Frequency of alcohol use: None Drug Abuse: None Lives with: Family Family History: Reviewed & Not Pertinent, CVA, DM, Hypertension, Other Patient has suicidal ideation: No Patient has homicidal ideation: No - Past Medical History Cardiac Medical History: Reports: Hx Hypertension Pulmonary Medical History: Reports: Hx Bronchitis, Hx Pneumonia Neurological Medical History: Reports: Hx Migraine, Hx Seizures Renal/ Medical History: Reports: Hx Ovarian Cysts GI Medical History: Reports: Hx Gastroesophageal Reflux Disease, Hx Hiatal Hernia, Hx Colonoscopy - Was not completed due to her waking up and having discomfort, Hx Endoscopy Musculoskeletal Medical History: Reports Hx Arthritis, Reports Hx Musculoskeletal Trauma - Fractured clavicle Traumatic Medical History: Reports: Hx Fractures - Clavicle as a child Past Surgical History: Reports: Hx Cholecystectomy, Hx Hysterectomy, Hx Nose Surgery - Immunizations Immunizations up to date: Yes Hx Diphtheria, Pertussis, Tetanus Vaccination: No Review of Systems - Review of Systems Constitutional: No symptoms reported EENT: No symptoms reported Cardiovascular: No symptoms reported Respiratory: No symptoms reported Gastrointestinal: See HPI, Abdominal pain, Diarrhea, Nausea, Vomiting Genitourinary: No symptoms reported Female Genitourinary: No symptoms reported Musculoskeletal: No symptoms reported Skin: No symptoms reported Hematologic/Lymphatic: No symptoms reported Neurological/Psychological: No symptoms reported -: Yes All other systems reviewed and negative Physical Exam - Vital signs Vitals: Temp Pulse Resp BP Pulse Ox 98.2 F 109 H 18 136/85 H 100 11/06/19 08:14 11/06/19 08:14 11/06/19 08:14 11/06/19 08:14 11/06/19 08:14 - Notes Notes: Physical Exam: General: Alert, appears well. HEENT: Normocephalic. Atraumatic. PERRL. Extraocular movements intact. Oropharynx clear. Mildly dry mucous membranes. Neck: Supple. Non-tender. Respiratory: No respiratory distress. Clear and equal breath sounds bilaterally. Cardiovascular: Regular rate and rhythm. Abdominal: Mild diffuse abdominal tenderness with palpation. No distension. Normal Bowel Sounds. Back: No gross abnormalities. Extremities: Moves all four extremities. Upper extremities: Normal inspection. Normal ROM. Lower extremities: Normal inspection. No edema. Normal ROM. Neurological: Normal cognition. AAOx4. Normal speech. Psychological: Normal affect. Normal Mood. Skin: Warm. Dry. Normal color. Course - Re-evaluation Re-evalutation: 11/06/19 10:17 Recheck at 10:15 she is watching tv visiting with and feels improved. - Vital Signs Vital signs: Temp Pulse Resp BP Pulse Ox 97.9 F 68 18 124/75 100 11/06/19 10:34 11/06/19 10:34 11/06/19 10:34 11/06/19 10:34 11/06/19 08:14 - Laboratory Result Diagrams: 11/06/19 08:55 02/17/20 08:55 Laboratory results interpreted by me: 11/06/19 11/06/19 08:55 08:55 WBC 15.3 H RDW 14.9 H Seg Neuts % (Manual) 85 H Band Neutrophils % 2 L Lymphocytes % (Manual) 8 L Abs Neuts (Manual) 13.3 H BUN 22 H Glucose 118 H Alkaline Phosphatase 157 H Total Protein 8.7 H Discharge - Discharge Clinical Impression: Acute diarrhea Abdominal pain Qualifiers: Abdominal location: generalized Qualified Code(s): R10.84 - Generalized abdominal pain Vomiting Qualifiers: Vomiting type: unspecified Vomiting Intractability: non-intractable Nausea presence: with nausea Qualified Code(s): R11.2 - Nausea with vomiting, unspecified Condition: Good Disposition: HOME, SELF-CARE Instructions: Abdominal Pain ([facility]), Antispasmodics ([facility]), Intravenous (IV) Fluids ([facility]), Reglan ([facility]), Vomiting ([facility]) Additional Instructions: Clear liquids as discussed. Rest. Take medicine as directed. Please return here for any problems or any concerns. Prescriptions: Dicyclomine HCl [Bentyl 10 mg Capsule] 1 cap PO TID #15 cap Ondansetron [Zofran Odt 4 mg Tablet] 1 - 2 tab PO Q4H PRN #15 tab.rapdis PRN Reason: For Nausea/Vomiting Referrals: AGNIESZKA CANO MD [Primary Care Provider] - Follow up as needed I personally performed the services described in the documentation, reviewed and edited the documentation which was dictated to the scribe in my presence, and it accurately records my words and actions.
[2019-11-06 10:13] LABS: APPEARANCE,URINE SLIGHTLY-CLOUDY; BILIRUBIN,URINE NEGATIVE (NEGATIVE); COLOR,URINE YELLOW; GLUCOSE, URINE NEGATIVE (NEGATIVE); KETONES,URINE NEGATIVE (NEGATIVE); LEUKOCYTE ESTERASE,URINE NEGATIVE (NEGATIVE); NITRITE,URINE NEGATIVE (NEGATIVE); PROTEIN,URINE NEGATIVE (NEGATIVE); URINE SPECIFIC GRAVITY 1.028; UROBILINOGEN,URINE NEGATIVE mg/dL (<2.0)
[2019-11-06 10:26] LABS: A TYPE INFLUENZA AG NEGATIVE (NEGATIVE); B INFLUENZA AG NEGATIVE (NEGATIVE)
--- NOTE | 2019-11-06 12:10 | RADIOLOGY REPORT (SQ) ---
EXAM DESCRIPTION: CT ABD/PELVIS WITH IV ONLY COMPLETED DATE/TIME: 11/06/2019 10:49 am REASON FOR STUDY: abd pain. Diffuse abdominal pain. Previous cholecystectomy, hysterectomy. COMPARISON: 06/22/2017 TECHNIQUE: CT scan of the abdomen and pelvis performed using helical scanning technique with dynamic intravenous contrast injection. No oral contrast. Images reviewed with lung, soft tissue, and bone windows. Reconstructed coronal and sagittal MPR images reviewed. Delayed images for evaluation of the urinary system also acquired. All images stored on PACS. All CT scanners at this facility use dose modulation, iterative reconstruction, and/or weight based d osing when appropriate to reduce radiation dose to as low as reasonably achievable (ALARA). [facility]: Dose Right [facility]: CareDose [facility]: Dose Right [facility]: Teradose 4D [facility]: [facility] CONTRAST TYPE AND DOSE: contrast/concentration: Isovue 350.00 mg/ml; Total Contrast Delivered: 89.0 ml; Total Saline Delivered: 70.0 ml RENAL FUNCTION: GFR > 60. RADIATION DOSE: CT Rad equipment meets quality standard of care and radiation dose reduction techniq ues were employed. CTDIvol: 9.8 - 13.8 mGy. DLP: 1341 mGy-cm.. LIMITATIONS: None. FINDINGS: LOWER CHEST: No significant findings. No nodules or infiltrates. LIVER: Normal size. Mild hepatic steatosis. No masses. No dilated ducts. SPLEEN: Normal size. Calcification at the splenic hilum may represent a splenic artery aneurysm or p ossibly splenic calcification. This is unchanged since previous examination. No perisplenic fluid o r inflammatory change. PANCREAS: No masses. No significant calcifications. No adjacent inflammation or peripancreatic fluid collections. Pancreatic duct not dilated. GALLBLADDER: Surgically absent. ADRENAL GLANDS: No significant masses or asymmetry. RIGHT KIDNEY AND URETER: No solid masses. No significant calcifications. No hydronephrosis or hyd roureter. LEFT KIDNEY AND URETER: No solid masses. No significant calcifications. No hydronephrosis or hydr oureter. AORTA AND VESSELS: No aneurysm. No dissection. Renal arteries, SMA, celiac without stenosis. RETROPERITONEUM: No retroperitoneal adenopathy, hemorrhage or masses. BOWEL AND PERITONEAL CAVITY: There is colonic diverticulosis in the descending and sigmoid colon. No CT evidence of acute diverticulitis. No bowel obstruction. No bowel wall thickening or inflammator y change. No ascites or pneumoperitoneum. APPENDIX: Surgically absent. PELVIS: Post hysterectomy. No adnexal mass. ABDOMINAL WALL: No masses. No hernias. BONES: No significant or acute findings. OTHER: No other significant finding. IMPRESSION: 1. No acute abnormality in the abdomen or pelvis to explain the patient's symptoms. 2. Mild hepatic steatosis. 3. Colonic diverticulosis without evidence of diverticulitis. TECHNICAL DOCUMENTATION: JOB ID: [id number] Quality ID # [id number]: Final reports with documentation of one or more dose reduction techniques (e.g., Au tomated exposure control, adjustment of the mA and/or kV according to patient size, use of iterative reconstruction technique) 2010 [employer]- All Rights Reserved Reading location - IP/workstation name: [email or web address]
[2019-11-06] MEDS ORDERED: MORPHINE SULFATE 10 MG/ML INJ IV ONE (13:23)
[2019-11-06] MEDS ORDERED: ONDANSETRON HCL INJ/PF 4 MG/2 ML SDV IV ONE (13:23)
[2019-11-06 15:14] VITALS: BP 116/57
== END 2019-11-06 15:10 | disposition home or self-care (01) ==
LOC: ER 08:10
DX: R11.2 Nausea with vomiting, unspecified (principal); R10.84 Generalized abdominal pain; R10.817 Generalized abdominal tenderness; R19.7 Diarrhea, unspecified; I10 Essential (primary) hypertension; Z87.19 Personal history of other diseases of the digestive system; Z90.49 Acquired absence of other specified parts of digestive tract; Z88.8 Allergy status to other drugs, medicaments and biological substances
CPT/HCPCS: 96376; 99284; 96361; 96374; 96375; 36415; 83605; 83690; 83735; 85025; 80053; 81001; 87804; 74177; J1200; J3010; J2765; J2270; J2405; J7030

== ENCOUNTER → 2020-04-08 | Outpatient (CLI) | payer MEDICAID ==
--- NOTE | 2020-04-08 13:38 | WOMENS IMAGING REPORT ---
EXAM DESCRIPTION: 3D SCREENING MAMMO BILAT IMAGES COMPLETED DATE/TIME: 04/08/2020 10:01 am REASON FOR STUDY: Z12.31 ENCOUNTER FOR SCREENING MAMMOGRAM FOR MALIGNANT NEOPLASM OF BREAST Z12.31 ENCNTR SCREEN MAMMOGRAM FOR MALIGNANT NEOPLASM OF ISHAAN COMPARISON: 2017 and subsequent. EXAM PARAMETERS: Views: Standard craniocaudal and mediolateral oblique views of each breast recorded using digital acquisition and breast tomosynthesis. Read with the assistance of CAD. .[facility] - [employer] Version 9.2 LIMITATIONS: None. FINDINGS: No suspicious masses, suspicious calcifications or architectural distortion. No areas of c oncern. IMPRESSION: NEGATIVE MAMMOGRAM. BIRADS 1. BREAST DENSITY: c. The breasts are heterogeneously dense, which may obscure small masses. BIRAD: ASSESSMENT: 1 NEGATIVE RECOMMENDATION: ROUTINE SCREENING COMMENT: The patient has been notified of the results by letter per MQSA requirements. Additional no tification policies are in place for contacting patient with suspicious or incomplete findings. Quality ID #225: The [employer] recommends an annual screening mammogram for women aged 40 years or over. This facility utilizes a reminder system to ensure that all patients receive reminder letters, and/or direct phone calls for appointments. This includes reminders for routine scr eening mammograms, diagnostic mammograms, or other Breast Imaging Interventions when appropriate. Th is patient will be placed in the appropriate reminder system. TECHNICAL DOCUMENTATION: FINDING NUMBER: (1) ASSESSMENT: (1) JOB ID: [id number] 2010 [employer]- All Rights Reserved Reading location - IP/workstation name: [email or web address]
== END ==
LOC: WI 09:01
PROVIDERS: ATTEND Internal Medicine
DX: Z12.31 Encounter for screening mammogram for malignant neoplasm of breast (principal)
CPT/HCPCS: 77063; 77067

== ENCOUNTER 2020-10-05 09:26 | Emergency (ER) | payer MEDICARE, MEDICAID ==
--- NOTE | 2020-10-05 10:00 | ER Document Report ---
ED General - General Chief Complaint: Seizure Stated Complaint: POSSIBLE SEIZURE Primary Care Provider: AGNIESZKA CANO MD [Primary Care Provider] - Follow up as needed TRAVEL OUTSIDE OF THE [place] IN LAST 30 DAYS: No - HPI Notes: 65-year-old female with a history of seizures, hypertension, GERD presents to the emergency room today via EMS for being found unresponsive in her house at roughly 0841 was when EMS was called today. Patient was brought into a room, it did appear at first she was posturing however she started to respond, she is orientated to person place and time. - Related Data Allergies/Adverse Reactions: chlorpheniramine [From Coricidin HBP] Allergy (Mild, Verified 11/06/19 08:26) dextromethorphan [From Coricidin HBP] Allergy (Mild, Verified 11/06/19 08:26) guaifenesin [From Coricidin HBP] Allergy (Mild, Verified 11/06/19 08:26) acetaminophen [From Tylenol] Allergy (Verified 11/06/19 08:26) aspirin Allergy (Verified 11/06/19 08:26) Past Medical History - Social History Family History: Reviewed & Not Pertinent, CVA, DM, Hypertension, Other - Past Medical History Cardiac Medical History: Reports: Hx Hypertension Pulmonary Medical History: Reports: Hx Bronchitis, Hx Pneumonia Neurological Medical History: Reports: Hx Migraine, Hx Seizures Renal/ Medical History: Reports: Hx Ovarian Cysts. Denies: Hx Peritoneal Dialysis GI Medical History: Reports: Hx Gastroesophageal Reflux Disease, Hx Hiatal Hernia, Hx Colonoscopy - Was not completed due to her waking up and having discomfort, Hx Endoscopy Musculoskeletal Medical History: Reports Hx Arthritis, Reports Hx Musculoskeletal Trauma - Fractured clavicle Traumatic Medical History: Reports: Hx Fractures - Clavicle as a child Past Surgical History: Reports: Hx Cholecystectomy, Hx Hysterectomy, Hx Nose Surgery - Immunizations Immunizations up to date: Yes Hx Diphtheria, Pertussis, Tetanus Vaccination: No Course - Re-evaluation Re-evalutation: 10/05/20 09:[address] Mick Hewitt, ER supervising physician at 0957 regarding Discharge - Discharge Referrals: AGNIESZKA CANO MD [Primary Care Provider] - Follow up as needed
--- NOTE | 2020-10-05 10:24 | RADIOLOGY REPORT (SQ) ---
EXAM DESCRIPTION: CT CERVICAL SPINE WITHOUT IMAGES COMPLETED DATE/TIME: 10/05/2020 10:04 am REASON FOR STUDY: found unresponsive in house, +NOVAK, dizziness COMPARISON: CT brain same date TECHNIQUE: Axial images acquired through the cervical spine without intravenous contrast. Images re viewed with lung, soft tissue and bone windows. Reconstructed coronal and sagittal MPR images review ed. Images stored on PACS. All CT scanners at this facility use dose modulation, iterative reconstruction, and/or weight based d osing when appropriate to reduce radiation dose to as low as reasonably achievable (ALARA). [facility]: Dose Right [facility]: CareDose [facility]: Dose Right [facility]: Teradose 4D [facility]: [employer] RADIATION DOSE: CT Rad equipment meets quality standard of care and radiation dose reduction techniq ues were employed. CTDIvol: 22.1 mGy. DLP: 404 mGy-cm. mGy. LIMITATIONS: None. FINDINGS: ALIGNMENT: Anatomic. MINERALIZATION: Normal. VERTEBRAL BODIES: No fractures or dislocation. DISCS: No significant disc disease. FACETS, LATERAL MASSES, POSTERIOR ELEMENTS: No fractures. No dislocation. No acute findings. HARDWARE: None in the spine. VISUALIZED RIBS: No fractures. LUNG APICES AND SOFT TISSUES: No significant or acute findings. OTHER: No other significant finding. IMPRESSION: NO ACUTE OR SIGNIFICANT FINDINGS IN THE CERVICAL SPINE. TECHNICAL DOCUMENTATION: JOB ID: [id number] Quality ID # [id number]: Final reports with documentation of one or more dose reduction techniques (e.g., Au tomated exposure control, adjustment of the mA and/or kV according to patient size, use of iterative reconstruction technique) 2010 [employer]- All Rights Reserved Reading location - IP/workstation name: [id number]
--- NOTE | 2020-10-05 10:26 | RADIOLOGY REPORT (SQ) ---
EXAM DESCRIPTION: CT HEAD WITHOUT IMAGES COMPLETED DATE/TIME: 10/05/2020 10:05 am REASON FOR STUDY: found unresponsive in house, +NOVAK, dizziness COMPARISON: CT brain 07/25/2019, 06/22/2019, 05/26/2018 TECHNIQUE: Axial images acquired through the brain without intravenous contrast. Images reviewed wi th bone, brain and subdural windows. Images stored on PACS. All CT scanners at this facility use dose modulation, iterative reconstruction, and/or weight based d osing when appropriate to reduce radiation dose to as low as reasonably achievable (ALARA). [facility]: Dose Right [facility]: CareDose [facility]: Dose Right [facility]: Teradose 4D [facility]: [employer] RADIATION DOSE: CT Rad equipment meets quality standard of care and radiation dose reduction techniq ues were employed. CTDIvol: 53.2 mGy. DLP: 991 mGy-cm. mGy. LIMITATIONS: None. FINDINGS: VENTRICLES: Normal size and contour. CEREBRUM: No masses. No hemorrhage. No midline shift. No evidence for acute infarction. Normal gra y/white matter differentiation. No areas of low density in the white matter. CEREBELLUM: No masses. No hemorrhage. No alteration of density. No evidence for acute infarction. EXTRAAXIAL SPACES: No fluid collections. No masses. ORBITS AND GLOBE: No intra- or extraconal masses. Normal contour of globe without masses. CALVARIUM: No fracture. PARANASAL SINUSES: No fluid or mucosal thickening. SOFT TISSUES: No mass or hematoma. OTHER: No other significant finding. IMPRESSION: NORMAL BRAIN CT WITHOUT CONTRAST. EVIDENCE OF ACUTE STROKE: NO. COMMENT: Quality ID # [id number]: Final reports with documentation of one or more dose reduction techniques (e.g., Automated exposure control, adjustment of the mA and/or kV according to patient size, use of iterative reconstruction technique) TECHNICAL DOCUMENTATION: JOB ID: [id number] 2010 [employer]- All Rights Reserved Reading location - IP/workstation name: [id number]
--- NOTE | 2020-10-05 10:27 | RADIOLOGY REPORT (SQ) ---
EXAM DESCRIPTION: HIP RIGHT AP/LATERAL IMAGES COMPLETED DATE/TIME: 10/05/2020 10:12 am REASON FOR STUDY: s/p fall, right hip pain COMPARISON: None. NUMBER OF VIEWS: Two views. TECHNIQUE: AP pelvis and additional frog legview of the right hip. LIMITATIONS: None. FINDINGS: MINERALIZATION: Normal. RIGHT HIP: No fracture or dislocation. No worrisome bone lesions. LEFT HIP: No fracture or dislocation. No worrisome bone lesions. Limited views. PUBIS AND ISCHIUM: No fracture. PELVIS: No fracture. SACRUM: No fracture or dislocation. No worrisome bone lesions. LOWER LUMBAR SPINE: No fracture or dislocation. No worrisome bone lesions. No significant disc disea se. SOFT TISSUES: No findings. OTHER: No other significant finding. IMPRESSION: NEGATIVE STUDY OF THE RIGHT HIP. NO RADIOGRAPHIC EVIDENCE OF ACUTE INJURY. TECHNICAL DOCUMENTATION: JOB ID: [id number] 2010 [employer]- All Rights Reserved Reading location - IP/workstation name: [id number]
--- NOTE | 2020-10-05 10:28 | RADIOLOGY REPORT (SQ) ---
EXAM DESCRIPTION: CHEST SINGLE VIEW IMAGES COMPLETED DATE/TIME: 10/05/2020 10:12 am REASON FOR STUDY: dizziness, NOVAK COMPARISON: Two-view chest 07/19/2019 EXAM PARAMETERS: NUMBER OF VIEWS: One view. TECHNIQUE: Single frontal radiographic view of the chest acquired. RADIATION DOSE: NA LIMITATIONS: None. FINDINGS: LUNGS AND PLEURA: No opacities, masses or pneumothorax. No pleural effusion. MEDIASTINUM AND HILAR STRUCTURES: No masses. Contour normal. HEART AND VASCULAR STRUCTURES: Heart normal in size. Normal vasculature. BONES: No acute findings. HARDWARE: None in the chest. OTHER: No other significant finding. IMPRESSION: NO ACUTE RADIOGRAPHIC FINDING IN THE CHEST. TECHNICAL DOCUMENTATION: JOB ID: [id number] 2010 [employer]- All Rights Reserved Reading location - IP/workstation name: [id number]
[2020-10-05 10:32] LABS: ALBUMIN 4.3 g/dL (3.5-5.0); ALKALINE PHOSPHATASE 142 U/L (38-126); ANION GAP 8 (5-19); ASPARTATE AMINO TRANSFERASE 24 U/L (14-36); BILIRUBIN,DIRECT 0.3 mg/dL (0.0-0.4); BILIRUBIN,TOTAL 0.4 mg/dL (0.2-1.3); BLOOD UREA NITROGEN 14 mg/dL (7-20); CALCIUM 9.4 mg/dL (8.4-10.2); CARBON DIOXIDE 27 mmol/L (22-30); CHLORIDE 105 mmol/L (98-107); GLUCOSE 105 mg/dL (75-110); POTASSIUM 4.5 mmol/L (3.6-5.0); TOTAL PROTEIN 8.1 g/dL (6.3-8.2)
[2020-10-05 10:38] LABS: ALCOHOL < 10 mg/dL (NONE DETECTED)
[2020-10-05 10:40] LABS: ABSOLUTE LYMPHOCYTES (AUTO) 1.1 10^3/uL (0.5-4.7); ABSOLUTE MONOCYTES (AUTO) 0.6 10^3/uL (0.1-1.4); ABSOLUTE NEUT (AUTO) 4.4 10^3/uL (1.7-8.2); BASOPHILS % (AUTO) 0.8 % (0-2); EOSINOPHILS % (AUTO) 0.4 % (0-6); HEMOGLOBIN 12.3 g/dL (12.0-15.5); LYMPHOCYTES % (AUTO) 17.7 % (13-45); MEAN CORPUSCULAR HEMOGLOBIN 28.3 pg (27.0-33.4); MEAN CORPUSCULAR HGB CONC 34.2 g/dL (32.0-36.0); MEAN CORPUSCULAR VOLUME 83 fl (80-97); MONOCYTES % (AUTO) 9.5 % (3-13); PLATELET COUNT 221 10^3/uL (150-450); RED BLOOD COUNT 4.35 10^6/uL (3.72-5.28); RED CELL DISTRIBUTION WIDTH 14.2 % (11.5-14.0); SEGMENTED NEUTROPHILS % (AUTO) 71.6 % (42-78); TOTAL CELLS COUNTED % (AUTO) 100 %; WHITE BLOOD COUNT 6.1 10^3/uL (4.0-10.5)
[2020-10-05] MEDS ORDERED: KETOROLAC TROMETHAMINE INJ/PF 30 MG/1 ML SDV IV ONE (10:42)
[2020-10-05] MEDS ORDERED: LEVETIRACETAM 1000 MG/NACL-ISO 1,000 MG/100 ML RTUPB IV ONE (10:43)
--- NOTE | 2020-10-05 10:52 | ER Document Report ---
ED General - General Chief Complaint: Probable Seizure Stated Complaint: POSSIBLE SEIZURE Time Seen by Provider: 10/05/20 10:03 Primary Care Provider: AGNIESZKA CANO MD [Primary Care Provider] - Follow up as needed TRAVEL OUTSIDE OF THE [place] IN LAST 30 DAYS: No - HPI Notes: Chief complaint: Seizure History of present illness: 65-year-old female with longstanding history of seizure disorder followed primarily by Dr. Cano transported here via EMS after experiencing a brief generalized seizure at home followed by prolonged postictal episode. Patient was initially minimally responsive on arrival here. She is gradually regained consciousness and appropriate orientation at this time her only complaint is some dull headache and some mild soreness of her right hip. She says she has not been sleeping well for the last month seldom sleeping more than 4 hours at a time. She denies any acute respiratory or GI symptoms. Says she is fully compliant with her usual medications. She does not consume alcohol and denies any history of drug abuse. Her best recollection is that she was sitting in a chair at home shortly after eating breakfast and at that point she has no further memory. Patient reports recent exposure to a family member with Covid. She denies any personal history of Covid and says she has not been tested. Home Medications: Amlodipine Besylate [Norvasc 10 mg Tablet] 10 mg PO DAILY 08/31/17 Lisinopril/Hydrochlorothiazide [Lisinopril-Hctz 20-12.5 mg Tab] 1 each PO DAILY 08/31/17 Omeprazole 40 mg PO BID 08/31/17 Albuterol Sulfate [Proventil Hfa] 1 puff PO Q6HP PRN 07/19/19 Albuterol Sulfate [Ventolin 0.083% Neb 2.5 mg/3 mL Ampul] 2.5 mg NEB RTQ6HP PRN 07/19/19 Carbamazepine [Tegretol Xr 100 mg Tab.sr] 300 mg PO Q12 07/19/19 Levetiracetam 750 mg PO Q12 07/19/19 Tizanidine HCl 4 mg PO Q8HP PRN MDD LAST FILLED 09/02 FOR 60 TABS 07/19/19 Atorvastatin Calcium [Lipitor 10 mg Tablet] 10 mg PO QHS 30 Days #30 tablet 07/21/19 - Related Data Allergies/Adverse Reactions: chlorpheniramine [From Coricidin HBP] Allergy (Mild, Verified 11/06/19 08:26) dextromethorphan [From Coricidin HBP] Allergy (Mild, Verified 11/06/19 08:26) guaifenesin [From Coricidin HBP] Allergy (Mild, Verified 11/06/19 08:26) acetaminophen [From Tylenol] Allergy (Verified 11/06/19 08:26) aspirin Allergy (Verified 11/06/19 08:26) Home Medications: amlodipine. carbamazepine. levetiracetam. carbamazepine]. lisinopril/hctz. tegretol xl. omeprazole Past Medical History - General Information source: Patient, Emergency Med Personnel, [facility] Records - Social History Smoking Status: Unknown if Ever Smoked Chew tobacco use (# tins/day): No Frequency of alcohol use: None Drug Abuse: None Family History: Reviewed & Not Pertinent, CVA, DM, Hypertension, Other Patient has homicidal ideation: No - Past Medical History Cardiac Medical History: Reports: Hx Hypertension Pulmonary Medical History: Reports: Hx Bronchitis, Hx Pneumonia Neurological Medical History: Reports: Hx Migraine, Hx Seizures Renal/ Medical History: Reports: Hx Ovarian Cysts. Denies: Hx Peritoneal Dialysis GI Medical History: Reports: Hx Gastroesophageal Reflux Disease, Hx Hiatal Hernia, Hx Colonoscopy - Was not completed due to her waking up and having discomfort, Hx Endoscopy Musculoskeletal Medical History: Reports Hx Arthritis, Reports Hx Musculos keletal Trauma - Fractured clavicle Traumatic Medical History: Reports: Hx Fractures - Clavicle as a child Past Surgical History: Reports: Hx Cholecystectomy, Hx Hysterectomy, Hx Nose Surgery - Immunizations Immunizations up to date: Yes Hx Diphtheria, Pertussis, Tetanus Vaccination: No Review of Systems - Review of Systems Notes: Constitutional: Negative for fever. HENT: Negative for sore throat. Eyes: Negative for visual changes. Cardiovascular: Negative for chest pain. Respiratory: Negative for shortness of breath. Gastrointestinal: Negative for abdominal pain, vomiting or diarrhea. Genitourinary: Negative for dysuria. Musculoskeletal: Negative for back pain. Skin: Negative for rash. Neurological: As per HPI. 10 point ROS negative except as marked above and in HPI. Physical Exam - Vital signs Vitals: Temp Resp BP Pulse Ox 98.0 F 21 H 180/95 H 99 10/05/20 09:36 10/05/20 09:36 10/05/20 09:36 10/05/20 09:36 Interpretation: Hypertensive Notes: Repeat blood pressure 127/84 performed by me at the bedside. - Notes Notes: GENERAL: Female patient approximately stated age appearing in no acute distress. SKIN: Good turgor no rashes. HEAD: Normocephalic atraumatic. EYES: PERRLA. EOMI. Conjunctivae and sclerae clear. EARS: CANALS AND TMS CLEAR. NOSE: CLEAR. MOUTH: Mild abrasions of tongue. Moist mucosa. Good dentition. No stridor or edema. No drooling. NECK: Supple. No masses or thyromegaly. No adenopathy. Carotids 2+ without bruits. No JVD. BACK: Symmetrical without tenderness. CHEST: Respirations unlabored. Breath sounds clear and symmetrical. HEART: Regular rhythm. No murmur gallop or rub. ABDOMEN: Soft nontender without masses, organomegaly or rebound. Bowel sounds normally active. No bruits. GENITALIA: Deferred. EXTREMITIES: Mild tenderness over the lateral aspect of the right hip joint. No edema. No calf tenderness. Cap refill less than 1.5 seconds. Dorsalis pedis and posterior tibial pulses 3+ and symmetrical. NEUROLOGICAL: GCS 15. Alert and oriented x3. Normal gait. Fluent speech. Cranial nerves II through XII intact. Sensorimotor and cerebellar normal. Normal tone. PSYCHIATRIC: Appropriate affect. Course - Re-evaluation Re-evalutation: 10/05/20 10:54 I am giving the patient some additional Keppra IV. Imaging studies including chest x-ray, right hip film, noncontrast CT head and noncontrast CT C-spine all unremarkable. Her CBC and comprehensive metabolic profile are normal. Her car bamazepine level is therapeutic. We will send out a Keppra level. We are going to get a Covid swab for the patient. I think sleep deprivation is likely to be the precipitating factor here. Plan is to observe patient for another hour or so in emergency department and if she remains stable we will increase her Keppra dosage and refer her to her PMD and neurologist for outpatient follow-up. 10/05/20 12:49 Patient remained stable at this time. She is requesting discharge and I feel this to be appropriate. We will go to increase her Keppra to 1000 mg twice daily. Continue other medication as previously prescribed. Encouraged her to follow-up with her neurologist and/or primary care physician within the next several days. Findings, clinical impression and plan of treatment have been discussed with patient/family. Understanding of current findings and recommendations has been acknowledged by them and there is agreement regarding disposition and follow-up. - Vital Signs Vital signs: Temp Pulse Resp BP Pulse Ox 98.0 F 18 130/89 H 97 10/05/20 09:48 10/05/20 11:01 10/05/20 11:01 10/05/20 11:01 - Laboratory Results Result Diagrams: 10/05/20 09:38 10/05/20 09:38 Laboratory Results Interpreted: 10/05/20 10/05/20 10/05/20 09:38 09:38 11:16 RDW 14.2 H Alkaline Phosphatase 142 H Urine Nitrite POSITIVE H Ur Leukocyte Esterase SMALL H Critical Laboratory Results Reviewed: No Critical Results Attending or Supervising Physician who Reviewed Labs: CASSANDRA HARRISON - Radiology Results Radiology Results Interpreted: 10/05/20 10:[address] 10/05/20 09:46 IMPRESSION: NO ACUTE OR SIGNIFICANT FINDINGS IN THE CERVICAL SPINE. Head CT 10/05/20 09:46 IMPRESSION: NORMAL BRAIN CT WITHOUT CONTRAST. EVIDENCE OF ACUTE STROKE: NO. Chest X-Ray 10/05/20 09:47 IMPRESSION: NO ACUTE RADIOGRAPHIC FINDING IN THE CHEST. Hip/Pelvis X-Ray 10/05/20 10:00 IMPRESSION: NEGATIVE STUDY OF THE RIGHT HIP. NO RADIOGRAPHIC EVIDENCE OF ACUTE INJURY. Critical Radiology Results Reviewed: No Critical Results Attending or Supervising Physician who Reviewed Radiology: CASSANDRA HARRISON - EKG Interpretation by Me Additional EKG results interpreted by me: 10/05/20 10:53 Twelve-lead EKG reviewed by me contemporaneously: 0945 hrs. Indication for study: Seizure Rhythm: Normal sinus Rate: 77 Intervals: Normal intervals QRS axis: +[address]/T wave changes: None Comparison with prior tracing: No significant interval change since prior study 07/20/2019 Interpretation: Normal sinus rhythm Discharge - Discharge Clinical Impression: Seizure Condition: Stable Disposition: HOME, SELF-CARE Additional Instructions: Increase your Keppra to 1000 mg twice daily. I have given you a new prescription for this. Remain on all of your other medications as previously prescribed. Do not drive or operate machinery until you have been cleared to do so by your neurologist. Recommend follow-up visit with your neurologist and/or your primary care physician within the next several days. Return here as needed for new or worsening symptoms: Pain that is worsening or unimproved Uncontrolled vomiting High fever or shaking chills Overall worsening Prescriptions: Levetiracetam [Keppra 500 mg Tablet] 1,000 mg PO Q12 30 Days #60 tablet Referrals: AGNIESZKA CANO MD [Primary Care Provider] - Follow up as needed
--- NOTE | 2020-10-05 11:39 | EKG REPORT ---
SEVERITY:- BORDERLINE ECG - SINUS RHYTHM PROBABLE LEFT ATRIAL ABNORMALITY : Confirmed by: Milena Trevino MD 05-Oct-2020 11:38:35
[2020-10-05 11:48] LABS: APPEARANCE,URINE CLEAR; BILIRUBIN,URINE NEGATIVE (NEGATIVE); COLOR,URINE YELLOW; GLUCOSE, URINE NEGATIVE (NEGATIVE); KETONES,URINE NEGATIVE (NEGATIVE); LEUKOCYTE ESTERASE,URINE SMALL (NEGATIVE); NITRITE,URINE POSITIVE (NEGATIVE); PROTEIN,URINE NEGATIVE (NEGATIVE); URINE SPECIFIC GRAVITY 1.009; UROBILINOGEN,URINE NEGATIVE mg/dL (<2.0)
[2020-10-05 11:51] LABS: URINE AMPHETAMINES SCREEN NEGATIVE; URINE BARBITURATES SCREEN NEGATIVE; URINE BENZODIAZEPINES SCREEN NEGATIVE; URINE COCAINE SCREEN NEGATIVE; URINE MARIJUANA (THC) SCREEN NEGATIVE; URINE METHADONE SCREEN NEGATIVE; URINE PHENCYCLIDINE SCREEN NEGATIVE
[2020-10-05 13:49] VITALS: BP 111/16
== END 2020-10-05 13:58 | disposition home or self-care (01) ==
LOC: ER 09:26
DX: G40.909 Epilepsy, unspecified, not intractable, without status epilepticus (principal); Z20.822 Contact with and (suspected) exposure to COVID-19; I10 Essential (primary) hypertension; Z90.49 Acquired absence of other specified parts of digestive tract; Z90.710 Acquired absence of both cervix and uterus
CPT/HCPCS: 93005; 99285; 96375; 96365; 36415; 80177; 80307 ×2; 83605; 83735; 80156; 85025; 0241U; 80053; 81001; 71045; 73502; 70450; 72125; 93010; J1885; J1953; C9803